=== PATIENT | female | born 1975 | race Caucasian/White ===

== ENCOUNTER 2021-04-29 17:45 | Inpatient (IN) | payer BC, SELFPAY ==
[2021-04-29] VITALS (7 sets, daily range): BP systolic 116–127; BP diastolic 67–80; PULSE 82–90; RESP 22–36; TEMP 36.8–36.9; O2SAT 91–97; BMI 34.2
--- NOTE | 2021-04-29 18:10 | ECG_ITS ---
[facility] Test Date: 2021-04-29 Pat Name: Lakisha Esqueda Department: Room: Gender: Female [employer]: : 1975 Requested By: Cinthya Ramirez Order Number: [id number] Miguelito MD: Nitesh Horan M.D. Measurements Intervals Arlee Rate: 84 P: MT: QRS: 3 QRSD: 76 T: 13 QT: 349 QTc: 414 Interpretive Statements SINUS RHYTHM LOW QRS VOLTAGE IN PRECORDIAL LEADS [QRS DEFLECTION < 1.0 mV IN CHEST LEADS] MINIMAL VOLTAGE CRITERIA FOR LVH, CONSIDER NORMAL VARIANT [MEETS CRITERIA IN ONE OF: R(aVL), S(V1), R(V5), R(V5/V6)+S(V1)] No previous ECG available for comparison Electronically Signed On 04-30-2021 12:17:41 CDT by Nitesh Horan M.D. [id number]
--- NOTE | 2021-04-29 18:10 | XRR_ITS ---
PROCEDURE INFORMATION: Exam: XR Chest Exam date and time: 04/29/2021 6:10 PM Age: 45 years old Clinical indication: Dyspnea; Additional info: SOB TECHNIQUE: Imaging protocol: XR of the chest. Views: 1 view. Total images: 1 COMPARISON: CT abdomen pelvis w con* [id number] 06/05/2018 9:59 AM FINDINGS: Lungs: Bilateral diffuse patches of ground-glass interstitial lung disease. No visible consolidated alveolar airspace disease. In the current environment consideration might be given to Covid-19 pneumonitis. Pleural spaces: Unremarkable. No pleural effusion. No pneumothorax. Heart/Mediastinum: Cardiac structures in configuration within normal limits. Bones/joints: Unremarkable. XR/XR chest 1V portable [id number] IMPRESSION: 1. Bilateral interstitial pneumonitis. 2. Consideration might be given to Covid-19 pneumonitis.
--- NOTE | 2021-04-29 18:12 | W.ED.COVID ---
HPI - COVID General: Chief Complaint: COVID symptoms Stated Complaint: COVID +; RESP DISTRESS Time Seen by Provider: 04/29/21 17:46 Triage information: Has fever, cough or shortness of breath. Exposure to COVID + person last 14 days History of Present Illness: HPI Narrative: 45-year-old female who was diagnosed with Covid on the states she been having symptoms since she been on home oxygen but states she got much worse today. EMS states that on her concentrator 5 L she was in the low 80s and they placed her on a nonrebreather. Patient is diaphoretic and tachypneic here. She states that her cough is worsened and she gets extremely dyspneic even at rest. Denies any pain. Denies any vomiting. COVID 19 common symptoms: positive fever(s), chills, productive cough, dyspnea and body aches; negative headache(s), throat pain, nausea, vomiting or diarrhea COVID 19 other sytmptoms: negative chest pain COVID Results: No Data to Display Review of Systems Const: Reports: fever(s), chills and body aches Eyes: Denies: blurry vision or eye discomfort ENMT: Denies: throat pain or dental pain Card: Denies: chest pain Resp: Reports: dyspnea and productive cough GI: Denies: abdominal pain, nausea, vomiting or diarrhea : Denies: dysuria Musc: Denies: neck pain or back pain Skin/Breast: Denies: rash Neuro: Denies: headache(s) Psych: Denies: depression Reilly/Lymph: Denies: easy bruising All/Imm: Denies: urticaria Physical Exam Const: COMMON NORMALS: patient oriented x3 GENERAL APPEARANCE: in distress and ill appearing HENMT: COMMON NORMALS: normocephalic and atraumatic HEAD & SCALP: normocephalic and atraumatic Eye: COMMON NORMALS: Equal, round and reactive pupils present and EOMs intact bilaterally PUPIL: Yes Equal, round and reactive pupils present Neck/C-Spine: COMMON NORMALS: full ROM and supple Chest: COMMONS NORMALS: normal inspection of the chest and normal palpation of entire chest wall Resp: COMMON NORMALS: normal respiratory effort, No retractions and No use of accessory muscles EFFORT & INSPECTION: Yes tachypneic AUSCULTATION: rales Cardio: COMMON NORMALS: regular rate, regular rhythm and No murmurs present (Cardio) RATE: regular rate RHYTHM: regular rhythm GI: COMMON NORMALS: Normal to inspection, nondistended, normoactive bowel sounds present, Soft to palpation, non-tender and no masses PALPATION: Yes Soft to palpation Extremity: COMMON NORMALS: normal to inspection and full ROM Neuro: COMMON NORMALS: patient oriented x3, moves all extremities and no focal motor deficits Psych: COMMON NORMALS: mental status grossly normal, Normal thought process present and cooperative THOUGHT PROCESS: Normal thought process present Skin: COMMON NORMALS: no rashes or lesions noted and no wounds GENERAL SKIN EXAM: no rashes or lesions noted Course Vital Signs: Vital signs: Vital Signs Temperature 98.2 F 04/29/21 18:03 Pulse Rate 84 04/29/21 18:46 Respiratory Rate 30 H 04/29/21 18:46 Blood Pressure 127/67 04/29/21 18:03 Pulse Oximetry 93 04/29/21 18:46 MDM - COVID MDM Narrative: Medical decision making narrative: Patient presents here with Covid pneumonia requiring increasing oxygen. I spoke to the hospitalist and will admit at this time. Patient has been stable in the ER on a nonrebreather. Lab Data: Labs: Lab Results 04/29/21 04/29/21 04/29/21 Range/Units 18:27 18:27 18:27 WBC 11.7 H (4.0-10.0) 10^3/ uL RBC 4.61 (4.1-5.3) 10^6/u L Hgb 13.5 (11.5-15.3) g/dL Hct 40.6 (37.0-47.0) % MCV 88.1 (81-99) fL MCH 29.3 (28.0-34.0) pg MCHC 33.3 (30.0-36.0) g/dL RDW 13.0 (12.1-15.1) % Plt Count 377 (130-400) 10^3/c mm MPV 9.7 (7.4-10.4) fL Neut % (Auto) 87.4 % Lymph % (Auto) 7.3 % [place] % (Auto) 4.3 % Eos % (Auto) 0.0 % Baso % (Auto) 0.1 % Neut # (Auto) 10.26 H (1.8-7.7) 10^3/u L Lymph # (Auto) 0.9 (0.8-4.8) 10^3/u L [place] # (Auto) 0.5 (0.2-0.9) 10^3/u L Eos # (Auto) 0.0 (0.0-0.8) 10^3/u L Baso # (Auto) 0.0 (0.0-0.1) 10^3/u L Nucleated RBC % (a uto) 0 % Nucleated RBCs # 0.0 /100WBC D-Dimer 2.43 H (0-0.59) ug/mIFE U Specimen Type Sample Site ABG pH (7.35-7.45) ABG pCO2 (35-45) mmHg ABG pO2 (80.0-100.0) mmH g ABG HCO3 (22-26) mmol/L ABG Base Excess (-2.0-2.0) mmol/ L Akhil Test Hematocrit (37-47) % O2 Delivery Device O2 Liters/Min % Supervisor Rod Placing ID Sodium 136 (136-145) mmol/L Potassium 4.5 (3.5-5.1) mmol/L Chloride 97 L (98-107) mmol/L Carbon Dioxide 27 (22-29) mmol/L Anion Gap 16.5 (5-19) BUN 12 (6-20) mg/dL Creatinine 0.7 (0.5-0.9) mg/dL GFR Calculation 91.3 (90-130) mL/min Glucose 111 (65-115) mg/dL Calculated Osmolal ity 282 L (285-295) mOsm/k g Lactic Acid (0.5-2.2) mmol/L Calcium 8.2 L (8.5-10.5) mg/dL Ferritin 2622 H (15-150) ng/mL Total Bilirubin 0.5 (0.15-1.2) mg/dL AST 169 H (0-32) U/L ALT 177 H (0-33) U/L Alkaline Phosphata se 102 (35-105) IU/L C-Reactive Protein 37.4 H (0.0-4.9) mg/L NT-Pro-B Natriuret Pep 190 H (0-125) pg/mL Total Protein 6.1 L (6.6-8.7) g/dL Albumin 3.4 L (3.5-5.2) g/dL Globulin 2.7 (1.3-4.6) g/dL Procalcitonin 0.11 (0-0.5) ng/mL 04/29/21 04/29/21 Range/Units 18:27 19:24 WBC (4.0-10.0) 10^3/ uL RBC (4.1-5.3) 10^6/u L Hgb (11.5-15.3) g/dL Hct (37.0-47.0) % MCV (81-99) fL MCH (28.0-34.0) pg MCHC (30.0-36.0) g/dL RDW (12.1-15.1) % Plt Count (130-400) 10^3/c mm MPV (7.4-10.4) fL Neut % (Auto) % Lymph % (Auto) % [place] % (Auto) % Eos % (Auto) % Baso % (Auto) % Neut # (Auto) (1.8-7.7) 10^3/u L Lymph # (Auto) (0.8-4.8) 10^3/u L [place] # (Auto) (0.2-0.9) 10^3/u L Eos # (Auto) (0.0-0.8) 10^3/u L Baso # (Auto) (0.0-0.1) 10^3/u L Nucleated RBC % (a uto) % Nucleated RBCs # /100WBC D-Dimer (0-0.59) ug/mIFE U Specimen Type Arterial Sample Site Radial, left ABG pH 7.47 H (7.35-7.45) ABG pCO2 38.7 (35-45) mmHg ABG pO2 52.7 L (80.0-100.0) mmH g ABG HCO3 28.2 H (22-26) mmol/L ABG Base Excess 4.4 H (-2.0-2.0) mmol/ L Akhil Test Pos Hematocrit 44.2 (37-47) % O2 Delivery Device Nrb O2 Liters/Min 15.0 % Supervisor Rod Placing ID Cak Sodium (136-145) mmol/L Potassium (3.5-5.1) mmol/L Chloride (98-107) mmol/L Carbon Dioxide (22-29) mmol/L Anion Gap (5-19) BUN (6-20) mg/dL Creatinine (0.5-0.9) mg/dL GFR Calculation (90-130) mL/min Glucose (65-115) mg/dL Calculated Osmolal ity (285-295) mOsm/k g Lactic Acid 1.9 (0.5-2.2) mmol/L Calcium (8.5-10.5) mg/dL Ferritin (15-150) ng/mL Total Bilirubin (0.15-1.2) mg/dL AST (0-32) U/L ALT (0-33) U/L Alkaline Phosphata se (35-105) IU/L C-Reactive Protein (0.0-4.9) mg/L NT-Pro-B Natriuret Pep (0-125) pg/mL Total Protein (6.6-8.7) g/dL Albumin (3.5-5.2) g/dL Globulin (1.3-4.6) g/dL Procalcitonin (0-0.5) ng/mL Imaging Data: CXR: Attestation: I personally reviewed and interpreted this imaging study as follows: Radiologist's impression: [address] [address] XRay Report Signed Patient: Lakisha Esqueda Unit #: [id number] : 1975 Age/Sex: 45 / F ADM Date: 04/29/21 Loc: ER Room/Bed: Attending Dr: Ordering Provider/Ordering MD: Cinthya Ramirez MD Date of Service: 04/29/21 Procedure(s): XR chest 1V portable [id number] Accession Number(s): [id number] Report Number: [id number] PROCEDURE INFORMATION: Exam: XR Chest Exam date and time: 04/29/2021 6:10 PM Age: 45 years old Clinical indication: Dyspnea; Additional info: SOB TECHNIQUE: Imaging protocol: XR of the chest. Views: 1 view. Total images: 1 COMPARISON: CT abdomen pelvis w con* [id number] 06/05/2018 9:59 AM FINDINGS: Lungs: Bilateral diffuse patches of ground-glass interstitial lung disease. No visible consolidated alveolar airspace disease. In the current environment consideration might be given to Covid-19 pneumonitis. Pleural spaces: Unremarkable. No pleural effusion. No pneumothorax. Heart/Mediastinum: Cardiac structures in configuration within normal limits. Bones/joints: Unremarkable. XR/XR chest 1V portable [id number] IMPRESSION: 1. Bilateral interstitial pneumonitis. 2. Consideration might be given to Covid-19 pneumonitis. Dictated By: Lee Easton Signed By: Lee Easton Signed Date/Time: 04/29/211926 DD/ 24 EKG Data: EKG 1: Attestation: I personally reviewed and interpreted this EKG as follows: EKG interpretation date: 04/29/21 EKG interpretation time: 18:45 Interpretation: nsr hr [address] or t wave abnormalitiesqrs 76 qtc 390 COVID Results: No Data to Display Discharge Plan Discharge Patient Disposition: Admitted As Inpatient Clinical Impression: Pneumonia due to 2019 novel coronavirus Condition: Stable Coding Level of Care Code ED Handle Maker for Chg Fwd Exam Comprehensive
[2021-04-29] MEDS: albuterol 8 gm MDI 2 PUFF INHALATION (18:31)
[2021-04-29 18:38] LABS: Basophils % 0.1 %; Hematocrit 40.6 % (37.0-47.0); Hemoglobin 13.5 g/dL (11.5-15.3); Lymphocytes # 0.9 10^3/uL (0.8-4.8); Lymphocytes % 7.3 %; Mean Corpuscular HGB Conc 33.3 g/dL (30.0-36.0); Mean Corpuscular Hemoglobin 29.3 pg (28.0-34.0); Mean Corpuscular Volume 88.1 fL (81-99); Mean Platelet Volume 9.7 fL (7.4-10.4); Monocytes # 0.5 10^3/uL (0.2-0.9); Monocytes % 4.3 %; Neutrophils # 10.26 10^3/uL (1.8-7.7); Neutrophils % 87.4 %; Nucleated Red Blood Cells % 0 %; Platelet Count 377 10^3/cmm (130-400); Red Blood Count 4.61 10^6/uL (4.1-5.3); White Blood Count 11.7 10^3/uL (4.0-10.0)
[2021-04-29 18:53] LABS: D Dimer 2.43 ug/mIFEU (0-0.59)
[2021-04-29 19:00] LABS: Lactic Sepsis W/Reflex 1.9 mmol/L (0.5-2.2)
[2021-04-29 19:10] LABS: NT Pro B Type Natriuretic Pept 190 pg/mL (0-125); Procalcitonin 0.11 ng/mL (0-0.5)
--- NOTE | 2021-04-29 19:13 | CTR_ITS ---
PROCEDURE INFORMATION: Exam: CTA Chest With Contrast Exam date and time: 04/29/2021 7:13 PM Age: 45 years old Clinical indication: Cough and shortness of breath; Patient HX: Covid+ SOB w cough TECHNIQUE: Imaging protocol: Computed tomographic angiography of the chest with contrast. 3D rendering (Not supervised by radiologist): MIP and/or 3D reconstructed images were created by the technologist. Total images: 846 Radiation optimization: All CT scans at this facility use at least one of these dose optimization techniques: automated exposure control; mA and/or kV adjustment per patient size (includes targeted exams where dose is matched to clinical indication); or iterative reconstruction. Contrast material: OMNI 350; Contrast volume: 77 ml; Contrast route: INTRAVENOUS (IV); COMPARISON: CR (CHEST, ) 04/29/2021 6:46 PM RADIATION DOSE METRICS: Total DLP (mGy-cm): 584.78 FINDINGS: Pulmonary arteries: No visible evidence of pulmonary embolism/pulmonary arterial thrombus. Aorta: The thoracic aorta is nonaneurysmal. No visible intimal flap or dissection. Thyroid: Potential 13 mm nodule at the thyroid isthmus. Not well imaged due to quantum mottle artifact. Lungs: Bilateral, predominantly peripheral, patches of ground-glass interstitial lung disease opacification with patches of crazy paving and early consolidated alveolar airspace disease consistent with active pneumonitis/pneumonia. Overall constellation of findings would be consistent with Covid-19 pneumonitis/pneumonia. Pleural spaces: Unremarkable. No pneumothorax. No pleural effusion. Heart: No cardiomegaly. No visible pericardial effusion. No visible coronary artery disease. Lymph nodes: Few marginally prominent mediastinal and hilar lymph nodes most likely reactive. Bones/joints: No visible active or acute osseous pathology. Soft tissues: Unremarkable. CT/CT angio chest PE protcl [id number] IMPRESSION: 1. No visible evidence of pulmonary embolism/pulmonary arterial thrombus. 2. Bilateral, predominantly peripheral, patches of ground-glass interstitial lung disease opacification with patches of crazy paving and early consolidated alveolar airspace disease consistent with active pneumonitis/pneumonia. Overall constellation of findings would be consistent with Covid-19 pneumonitis/pneumonia. 3. Potential 13 mm nodule at the thyroid isthmus. Not well imaged due to quantum mottle artifact. No follow-up is recommended. COMMENTS: Consistent with the [employer]'s Incidental Findings Committee white paper (J Am Rosamaria Radiol 2015): In patients aged 35 years and older with an incidental thyroid nodule equal to or greater than 1.[address], MRI or extrathyroidal US, further evaluation with dedicated thyroid US is recommended for patients with normal life expectancy and without comorbidities. For smaller nodules without suspicious features, no further evaluation or follow up is recommended. Radiation Dose CTDIVOL = (mGy): DLP = 584.78 (mGy-cm)
[2021-04-29 19:21] LABS: Alanine Aminotransferase 177 U/L (0-33); Albumin Level 3.4 g/dL (3.5-5.2); Alkaline Phosphatase 102 IU/L (35-105); Anion Gap 16.5 (5-19); Aspartate Amino Transferase 169 U/L (0-32); Blood Urea Nitrogen 12 mg/dL (6-20); C Reactive Protein 37.4 mg/L (0.0-4.9); Calcium 8.2 mg/dL (8.5-10.5); Carbon Dioxide 27 mmol/L (22-29); Chloride 97 mmol/L (98-107); Globulin 2.7 g/dL (1.3-4.6); Glomerular Filtration Rate 91.3 mL/min (90-130); Glucose 111 mg/dL (65-115); Osmolality Calculated 282 mOsm/kg (285-295); Potassium 4.5 mmol/L (3.5-5.1); Sodium 136 mmol/L (136-145); Total Bilirubin 0.5 mg/dL (0.15-1.2); Total Protein 6.1 g/dL (6.6-8.7)
[2021-04-29] MEDS: dexamethasone 4 mg/mL INJ 6 MG IVP (19:32)
[2021-04-29 19:35] LABS: ABG PCO2 38.7 mmHg (35-45); ABG PH Result 7.47 (7.35-7.45); Arterial Blood Gas Hematocrit 44.2 % (37-47); Base Excess ABG 4.4 mmol/L (-2.0-2.0); Blood Gas Allen Test Pos; Blood Gas Operator Identificat CAK; Blood Gas Sample Site Radial, left; Blood Gas Sample Type Arterial; HCO3 ABG 28.2 mmol/L (22-26); Oxygen Device NRB; PO2 ABG 52.7 mmHg (80.0-100.0)
[2021-04-29 19:36] LABS: Ferritin 2622 ng/mL (15-150)
[2021-04-29] MEDS: iohexol 350 mg/mL 100 mL Btl IV (21:18)
--- NOTE | 2021-04-29 22:31 | P.HP_ITS ---
Providers/Chief Complaint Admitting Physician: Kelly Davidson Chief Complaint: COVID +; RESP DISTRESS History of Present Illness Lakisha Esqueda is a 45 year old female With no significant past medical history who presented to the hospital with respiratory distress. Patient stated symptom had been ongoing for a little less than 1 week. This was associated with fever, chills, cough and overall generalized weakness.Patient is unvaccinated. Upon arrival to emergency room patients initial laboratory workup showed a WBC of 11.7, hemoglobin of 13.5, hematocrit of 40.6 and a platelet count of 377.D-dimer 2.43.Arterial blood gases showed a pH of 7.47, pCO2 38.7 and bicarb of 28.2.Sodium 136, potassium 4.5 chloride 97 bicarb 27.BUN 12 and creatinine 0.7. AST was elevated at 169, ALT of 177, alkaline phosphatase of 102. ProBNP of 190. CRP of 37.4. Procalcitonin 0.11.Chest CTA did not show any visible evidence of pulmonary embolism however was noted have bilateral predominant peripheral patches of ground-glass interstitial lung disease opacification consistent with COVID-19 pneumonia. Also noted to have a potentially 13 mm nodu le of the thyroid isthmus.In emergency room patient was given Decadron 6 mg IV x1 and admitted to the hospital. At the time of my evaluation patient was a high-flow nasal cannula requiring 60 L at 100% FiO2. Review of Systems General: Reports: 10 or more systems reviewed and unremarkable except in HPI and below Medications/Allergies Home Medications Medication Instructions Recorded Confirmed Last Taken Type albuterol sulfate 2 puff INHALATION QID PRN 04/29/21 04/29/21 04/29/21 17:00 History azithromycin 250 mg PO BEDTIME 04/29/21 04/29/21 04/28/21 21:00 History prednisone 40 mg PO DAILY 04/29/21 04/29/21 04/29/21 08:00 History Allergies Allergy/AdvReac Type Severity Reaction Status Date / Time No Known Allergies Allergy Verified 04/29/21 23:31 PFSH Acute PFSH: Medical History (Updated 04/30/21 @ 05:17 by Kelly Davidson MD) Morbid obesity No pertinent family history Surgical History (Updated 04/30/21 @ 05:16 by Kelly Davidson MD) No pertinent past surgical history Social History (Updated 04/30/21 @ 05:16 by Kelly Davidson MD) Smoking and tobacco status: never smoked Alcohol intake: never Substance/Drug Use: never Vitals/I&O/Wt Last Vital Signs Temp 97.3 F L 04/30/21 01:08 Pulse 79 04/30/21 01:08 Resp 22 H 04/30/21 01:08 BP 114/80 04/30/21 01:08 Pulse Ox 92 04/30/21 01:08 Weight last 48 hrs Weight 93.44 kg Physical Exam Narrative: EXAM NARRATIVE: General-alert awake and oriented on high-flow nasal cannula HEENT- grossly unremarkable CVS- normal sinus rhythm Chest-nonlabored respiration Abdomen -nondistended Extremities -no edema Data : 04/29/21 18:27 04/29/21 18:27 A&P Assessment and plan (1) Acute hypoxemic respiratory failure due to COVID-19: Increased respiratory rate, p02 52.7, on HFNC Continue decadron 6 mg IV q24hr Procalcitonin neg - Monitor off abx Ferritin 2622, CRP 37.4, Repeat in am Hold on remdesivir due elevated LFTs CTA - no PE Wean off hfnc as tolerated My require home o2 at discharge. Status: Acute Attestations Medical Necessity Statement*: Will require > 2 midnight stay in hospital for eval and treatment of covid19 pneumonia Time Spent in Patient Care: Greater than 35 minutes (>than 50% of time spent in counselling and/or direct pt care on unit) . Coding Level of Care Code Acute Blow Mold Technician for [facility]ie [facility] Diagnoses Acute hypoxemic respiratory failure due to COVID-19 U07.1; J96.01
[2021-04-30] VITALS (12 sets, daily range): BP systolic 106–124; BP diastolic 69–80; PULSE 70–86; RESP 16–28; TEMP 36.3–37.1; O2SAT 88–96
[2021-04-30] MEDS: heparin 5,000 unit/mL INJ 1 mL 5000 UNIT SUBCUT ×3 (06:39→21:37)
[2021-04-30] MEDS: pantoprazole 40 mg SDV IVP (06:39)
[2021-04-30 08:48] LABS: NT Pro B Type Natriuretic Pept 168 pg/mL (0-125)
[2021-04-30] MEDS: cholecalciferol (vitamin D3) 1,000 unit Tablet 1000 UNIT PO (11:17)
[2021-04-30] MEDS: remdesivir 200 MG in sodium chloride 0.9% (100 ml) 100 ML 100 MG IV (11:17)
[2021-04-30] MEDS: ascorbic acid 500 mg Tablet PO ×2 (11:17→18:00)
[2021-04-30] MEDS: zinc gluconate 50 mg Tablet PO (11:17)
--- NOTE | 2021-04-30 11:17 | PM.PN ---
Subjective Subjective: Interval history: Patient was seen this morning, she tells me that she feels a bit short of breath, but she does feel a whole lot better, currently no cough, no fevers, no nausea, no vomiting, no chest pain, denies smoking, no cardiovascular history, no history of lung disease Vitals/I&O/Wt Last Vital Signs Temp 98.0 F 04/30/21 07:24 Pulse 71 04/30/21 08:13 Resp 24 H 04/30/21 08:13 BP 118/79 04/30/21 07:24 Pulse Ox 95 04/30/21 08:13 04/29/21 04/30/21 04/30/21 22:59 06:59 14:59 Intake Total 180 / 180 Output Total 300 / 300 Balance -300 / -300 180 / 180 Weight last 48 hrs Weight 93.44 kg Physical Exam Const: COMMON NORMALS: no acute distress and patient oriented x3 Resp: COMMON NORMALS: normal respiratory effort, No retractions and No use of accessory muscles AUSCULTATION: diminished lung sounds diffuse Cardio: COMMON NORMALS: regular rate, regular rhythm, S1 normal heart sound present and S2 normal heart sound present RATE: regular rate RHYTHM: regular rhythm HEART SOUNDS: S1 normal heart sound present and S2 normal heart sound present GI: COMMON NORMALS: Normal to inspection, nondistended, normoactive bowel sounds present, Soft to palpation and non-tender PALPATION: Yes Soft to palpation Extremity: COMMON NORMALS: no pedal edema Neuro: COMMON NORMALS: patient oriented x3 Data : 04/29/21 18:27 04/29/21 18:27 A&P Assessment and plan (1) Acute hypoxemic respiratory failure due to COVID-19: Currently on heated high flow 55 L 75% FiO2 With transaminitis Pro-Irving 0.11, CRP 37.4, ferritin 2622 CT angiogram no radiographic evidence of pulmonary emboli Continue decadron 6 mg IV q24hr Start remdesivir day 1 of 5 Start Actemra day 1 Albuterol, budesonide Start broad-spectrum antibiotic therapy Rocephin and azithromycin for prophylaxis for secondary bacterial pneumonia Vitamin C, zinc, vitamin D Incentive spirometer, flutter valve Pulmonary toilet, prone positioning Monitor respiratory status closely Full code Lovenox for DVT prophylaxis Status: Acute (2) Pneumonia due to COVID-19 virus: Status: Acute (3) Transaminitis: Status: Acute Attestations Medical Necessity Statement*: Patient requires hospitalization for acute respiratory failure secondary to COVID-19, inpatient, greater than 2 midnights Coding Level of Care Code Acute Skating Rink Ice Maker for [facility] Diagnoses Acute hypoxemic respiratory failure due to COVID-19 U07.1; J96.01 Pneumonia due to COVID-19 virus U07.1; J12.82 Transaminitis R74.01
[2021-04-30] MEDS: azithromycin 500 MG in sodium chloride 0.9% 250 ML 250 MG IV (12:10)
[2021-04-30] MEDS: cefTRIAXone 1,000 MG in sodium chloride 0.9% (plus) 50 ML 100 MG IV (13:31)
--- NOTE | 2021-04-30 16:08 | PC.PT ---
Patient unable to participate meaningfully with PT evaluation today, just seen by occupational therapist, patient unable to maintain low 80s oxygen saturation with bed level activities; will follow
[2021-04-30] MEDS: dexamethasone 10 mg/mL INJ 6 MG IVP (18:00)
[2021-04-30] MEDS: budesonide 0.5 mg/2 mL Neb INHALATION (21:14)
[2021-05-01] VITALS (16 sets, daily range): BP systolic 112–133; BP diastolic 75–85; PULSE 68–88; RESP 18–30; TEMP 36.3–36.7; O2SAT 87–98
[2021-05-01 04:35] LABS: ABG PCO2 37.7 mmHg (35-45); ABG PH Result 7.46 (7.35-7.45); Arterial Blood Gas Hematocrit 43.4 % (37-47); Blood Gas Allen Test Pos; Blood Gas Sample Site Radial, right; Blood Gas Sample Type Arterial; HCO3 ABG 26.8 mmol/L (22-26); Oxygen Device HAG; PO2 ABG 52.7 mmHg (80.0-100.0)
--- NOTE | 2021-05-01 04:41 | PC.RESP ---
RT Shift Note Frequent safety and respiratory rounds continue. Orders completed as indicated. Patient monitored pre and post treatments throughout shift. Patient did tolerate treatments appropriately. Condition did not change. Patient educated on respiratory treatment and medications. Patient demonstrated. Will continue to monitor patient progress.
[2021-05-01 05:07] LABS: Basophils % 0.2 %; Hematocrit 42.4 % (37.0-47.0); Hemoglobin 13.6 g/dL (11.5-15.3); Lymphocytes # 1.4 10^3/uL (0.8-4.8); Lymphocytes % 14.6 %; Mean Corpuscular HGB Conc 32.1 g/dL (30.0-36.0); Mean Corpuscular Hemoglobin 28.6 pg (28.0-34.0); Mean Corpuscular Volume 89.1 fL (81-99); Mean Platelet Volume 9.9 fL (7.4-10.4); Monocytes # 0.4 10^3/uL (0.2-0.9); Neutrophils # 7.71 10^3/uL (1.8-7.7); Neutrophils % 80.1 %; Nucleated Red Blood Cells % 0 %; Platelet Count 483 10^3/cmm (130-400); Red Blood Count 4.76 10^6/uL (4.1-5.3); Red Cell Distribution Width 12.8 % (12.1-15.1); White Blood Count 9.6 10^3/uL (4.0-10.0)
[2021-05-01 05:12] LABS: INR 0.98 (0.8-1.2)
[2021-05-01 05:23] LABS: Lactate (Lactic Acid level) 1.7 mmol/L (0.5-2.2)
[2021-05-01 05:39] LABS: NT Pro B Type Natriuretic Pept 192 pg/mL (0-125); Procalcitonin 0.07 ng/mL (0-0.5)
[2021-05-01] MEDS: heparin 5,000 unit/mL INJ 1 mL 5000 UNIT SUBCUT ×3 (05:41→21:11)
[2021-05-01 05:42] LABS: Alanine Aminotransferase 165 U/L (0-33); Albumin Level 3.4 g/dL (3.5-5.2); Alkaline Phosphatase 107 IU/L (35-105); Anion Gap 17.4 (5-19); Aspartate Amino Transferase 102 U/L (0-32); Blood Urea Nitrogen 14 mg/dL (6-20); Calcium 8.7 mg/dL (8.5-10.5); Carbon Dioxide 26 mmol/L (22-29); Chloride 100 mmol/L (98-107); Globulin 3.2 g/dL (1.3-4.6); Glomerular Filtration Rate 109.1 mL/min (90-130); Glucose 125 mg/dL (65-115); Magnesium 2.7 mg/dL (1.7-2.3); Osmolality Calculated 290 mOsm/kg (285-295); Phosphorus 3.7 mg/dL (2.5-4.5); Potassium 4.4 mmol/L (3.5-5.1); Sodium 139 mmol/L (136-145); Total Bilirubin 0.4 mg/dL (0.15-1.2); Total Protein 6.6 g/dL (6.6-8.7)
[2021-05-01] MEDS: pantoprazole 40 mg SDV IVP (05:42)
[2021-05-01] MEDS: remdesivir 100 MG in sodium chloride 0.9% (100 ml) 100 ML IV (05:42)
[2021-05-01 05:49] LABS: Creatine Phosphokinase 78 U/L (26-192)
[2021-05-01 06:03] LABS: Ferritin 2606 ng/mL (15-150)
--- NOTE | 2021-05-01 07:00 | XRR_ITS ---
PROCEDURE INFORMATION: Exam: XR Chest Exam date and time: 05/01/2021 7:00 AM Age: 45 years old Clinical indication: Shortness of breath; Patient HX: Covid; Additional info: SOB TECHNIQUE: Imaging protocol: XR of the chest. Views: 1 view. COMPARISON: CR (CHEST, ) 04/29/2021 6:46 PM FINDINGS: Lungs: Multifocal bilateral ground-glass opacities are noted, increased. Findings may be seen with viral pneumonia. Pleural spaces: Unremarkable. No pleural effusion. No pneumothorax. Heart/Mediastinum: No cardiomegaly. Bones/joints: No acute fracture. XR/XR chest 1V portable [id number] IMPRESSION: Multifocal bilateral ground-glass opacities are noted, increased. Findings may be seen with viral pneumonia.
[2021-05-01] MEDS: FUROsemide 10 mg/mL SDV 4mL 40 MG IVP (08:45)
[2021-05-01] MEDS: cholecalciferol (vitamin D3) 1,000 unit Tablet 1000 UNIT PO (08:45)
[2021-05-01] MEDS: zinc gluconate 50 mg Tablet PO (08:45)
[2021-05-01] MEDS: azithromycin 500 MG in sodium chloride 0.9% 250 ML 250 MG IV (08:46)
[2021-05-01] MEDS: ascorbic acid 500 mg Tablet PO ×2 (08:56→18:16)
[2021-05-01] MEDS: budesonide 0.5 mg/2 mL Neb INHALATION ×2 (09:20→22:36)
--- NOTE | 2021-05-01 09:44 | PC.CHAP ---
Pastoral Care Encounter/Spiritual Assessment Type of Contact [] Declined health science instructor visit [] Patient/Family/Request visit [] Outpatient visit [] Follow-up visit [] Physician referral [] Code/Alert [x] Routine visit [] Staff referral [] Actively dying [] Patient sleeping [] Family support [] [] Out of room [] Palliative care [] [] Receiving care in room [] Pre-surgical visit [] Trauma [] Long length of stay [] ICU visit [x] Other:covid Relational/Emotional Strength [] Patient feels connected with others/family/visitors/staff [] Distress [] Loneliness/isolation [] Abandonment Spirituality of Patient [] Person of Maria R [] Attends Baptism of their Maria R [] Believes in Prayer [] Reads Bible or Hoahaoism materials [] There are Spiritual issues to be addressed Successfactors Consultant Interventions [x] Prayer [] Active listening [] Non-anxious presence [] Spiritual/emotional support [] Crisis/trauma care [] Spiritual counseling [] Bereavement support [] Provided bereavement packet [] Provided Bible/devotional materials [] Provided toy/stuffed animal, coloring book to patient or family member [] Provided Communion [] Anointing/[place] [] Salvation [x] Completed spiritual assessment [] Other: Impact on Illness or Injury [] Angry [] Fearful [] Anxious [] Often cries [] Exhaustion [] Unable to work [] Unable to attend jew [] Unable to walk/stand [] Unable to read [] Unable to drive [] Unable to eat/drink [] Unable to sleep [] Unable to be with family [] Patient intubated [] Other: Summary Time spent with patient
--- NOTE | 2021-05-01 13:22 | PM.PN ---
Subjective Subjective: Interval history: This morning patient was seen, she tells me that she is doing better, shortness of breath has improved, no fevers, no chills, no nausea, no vomiting, Vitals/I&O/Wt Last Vital Signs Temp 97.5 F L 05/01/21 11:58 Pulse 68 05/01/21 11:58 Resp 18 05/01/21 11:58 BP 122/81 05/01/21 11:58 Pulse Ox 98 05/01/21 11:58 04/30/21 05/01/21 05/01/21 22:59 06:59 14:59 Intake Total 480 / 1197.5 350 / 350 Balance 480 / 1197.5 350 / 350 Weight last 48 hrs Weight 93.44 kg Physical Exam Const: COMMON NORMALS: no acute distress and patient oriented x3 Resp: COMMON NORMALS: normal respiratory effort, No retractions, No use of accessory muscles and clear to auscultation bilaterally AUSCULTATION: clear to auscultation bilaterally Cardio: COMMON NORMALS: regular rate, regular rhythm, S1 normal heart sound present and S2 normal heart sound present RATE: regular rate RHYTHM: regular rhythm HEART SOUNDS: S1 normal heart sound present and S2 normal heart sound present GI: COMMON NORMALS: Normal to inspection, nondistended, normoactive bowel sounds present, Soft to palpation and non-tender PALPATION: Yes Soft to palpation Extremity: COMMON NORMALS: no pedal edema Neuro: COMMON NORMALS: patient oriented x3 Psych: COMMON NORMALS: mental status grossly normal Data : 05/01/21 04:02 05/01/21 04:02 A&P Assessment and plan (1) Acute hypoxemic respiratory failure due to COVID-19: Currently on heated high flow 50 L 70% FiO2 With transaminitis Pro-Irving 0.07, CRP 29, ferritin 2606 CT angiogram no radiographic evidence of pulmonary emboli Continue decadron 6 mg IV q24hr Start remdesivir day 2 of 5 First dose Actemra 04/30/2021 Albuterol, budesonide Start broad-spectrum antibiotic therapy Rocephin and azithromycin for prophylaxis for secondary bacterial pneumonia Vitamin C, zinc, vitamin D Incentive spirometer, flutter valve Pulmonary toilet, prone positioning Monitor respiratory status closely Full code Lovenox for DVT prophylaxis Plan for today, continue antibiotics continue Decadron continue remdesivir, aggressive pulmonary toilet Status: Acute (2) Pneumonia due to COVID-19 virus: Status: Acute (3) Transaminitis: Status: Acute Attestations Medical Necessity Statement*: Patient requires hospitalization for acute respiratory failure secondary COVID-19 Coding Level of Care Code Acute Director Of Marketing Operations for [facility] Diagnoses Acute hypoxemic respiratory failure due to COVID-19 U07.1; J96.01 Pneumonia due to COVID-19 virus U07.1; J12.82 Transaminitis R74.01
[2021-05-01] MEDS: cefTRIAXone 1,000 MG in sodium chloride 0.9% (plus) 50 ML 100 MG IV (14:18)
--- NOTE | 2021-05-01 15:00 | PC.NURSE ---
, Wesley Esqueda updated on patient.
--- NOTE | 2021-05-01 17:41 | PC.RESP ---
RT Shift Note Frequent safety and respiratory rounds continue. Orders completed as indicated. Patient monitored pre and post treatments throughout shift. Patient tolerated treatments appropriately. Condition improved . Patient and/or employee relations representative educated on respiratory treatment and medications. Patient and/or employee relations representative verbalized understanding and asked appropriate questions. Will continue to monitor patient progress.
[2021-05-01] MEDS: dexamethasone 10 mg/mL INJ 6 MG IVP (18:16)
[2021-05-02] VITALS (16 sets, daily range): BP systolic 108–134; BP diastolic 63–85; PULSE 75–95; RESP 16–36; TEMP 36.6–36.8; O2SAT 89–97
[2021-05-02] MEDS: heparin 5,000 unit/mL INJ 1 mL 5000 UNIT SUBCUT ×3 (05:28→22:28)
[2021-05-02] MEDS: pantoprazole 40 mg SDV IVP (05:28)
[2021-05-02] MEDS: remdesivir 100 MG in sodium chloride 0.9% (100 ml) 100 ML IV (05:29)
[2021-05-02 07:14] LABS: Lactate (Lactic Acid level) 2.7 mmol/L (0.5-2.2)
[2021-05-02 07:16] LABS: Basophils % 0.3 %; Eosinophils # 0.2 10^3/uL (0.0-0.8); Eosinophils % 2.4 %; Hematocrit 44.4 % (37.0-47.0); Hemoglobin 14.3 g/dL (11.5-15.3); Lymphocytes # 1.1 10^3/uL (0.8-4.8); Mean Corpuscular HGB Conc 32.2 g/dL (30.0-36.0); Mean Corpuscular Hemoglobin 28.9 pg (28.0-34.0); Mean Corpuscular Volume 89.9 fL (81-99); Mean Platelet Volume 10.1 fL (7.4-10.4); Monocytes # 0.4 10^3/uL (0.2-0.9); Monocytes % 4.7 %; Neutrophils # 5.71 10^3/uL (1.8-7.7); Neutrophils % 76.1 %; Nucleated Red Blood Cells % 0 %; Platelet Count 525 10^3/cmm (130-400); Red Blood Count 4.94 10^6/uL (4.1-5.3); Red Cell Distribution Width 13.1 % (12.1-15.1); White Blood Count 7.5 10^3/uL (4.0-10.0)
[2021-05-02 07:30] LABS: INR 1.04 (0.8-1.2)
[2021-05-02 08:01] LABS: Alanine Aminotransferase 124 U/L (0-33); Albumin Level 3.3 g/dL (3.5-5.2); Alkaline Phosphatase 99 IU/L (35-105); Anion Gap 17.6 (5-19); Aspartate Amino Transferase 54 U/L (0-32); Blood Urea Nitrogen 19 mg/dL (6-20); C Reactive Protein 13.1 mg/L (0.0-4.9); Calcium 8.7 mg/dL (8.5-10.5); Carbon Dioxide 27 mmol/L (22-29); Chloride 100 mmol/L (98-107); Creatine Phosphokinase 52 U/L (26-192); Glomerular Filtration Rate 109.1 mL/min (90-130); Glucose 94 mg/dL (65-115); Magnesium 2.5 mg/dL (1.7-2.3); NT Pro B Type Natriuretic Pept 76 pg/mL (0-125); Osmolality Calculated 294 mOsm/kg (285-295); Phosphorus 3.4 mg/dL (2.5-4.5); Potassium 3.6 mmol/L (3.5-5.1); Sodium 141 mmol/L (136-145); Total Bilirubin 0.5 mg/dL (0.15-1.2); Total Protein 6.3 g/dL (6.6-8.7)
[2021-05-02 08:15] LABS: Ferritin 2014 ng/mL (15-150)
[2021-05-02] MEDS: zinc gluconate 50 mg Tablet PO (08:38)
[2021-05-02] MEDS: ascorbic acid 500 mg Tablet PO ×2 (08:38→17:16)
[2021-05-02] MEDS: cholecalciferol (vitamin D3) 1,000 unit Tablet 1000 UNIT PO (08:38)
[2021-05-02] MEDS: azithromycin 500 MG in sodium chloride 0.9% 250 ML 250 MG IV (08:39)
[2021-05-02] MEDS: budesonide 0.5 mg/2 mL Neb INHALATION ×2 (08:44→20:06)
[2021-05-02] MEDS: cefTRIAXone 1,000 MG in sodium chloride 0.9% (plus) 50 ML 100 MG IV (15:50)
[2021-05-02] MEDS: ALPRAZolam 0.5 mg Tablet PO ×2 (15:51→22:28)
--- NOTE | 2021-05-02 16:17 | P.PN_ITS ---
Subjective Subjective: Interval history: 45 year old female With no significant past medical history who presented to the hospital with respiratory distress. Patient stated symptom had been ongoing for a little less than 1 week. This was associated with fever, chills, cough and overall generalized weakness.Patient is unvaccinated. Upon arrival to emergency room patients initial laboratory w orkup showed a WBC of 11.7, hemoglobin of 13.5, hematocrit of 40.6 and a platelet count of 377.D-dimer 2.43.Arterial blood gases showed a pH of 7.47, pCO2 38.7 and bicarb of 28.2.Sodium 136, potassium 4.5 chloride 97 bicarb 27.BUN 12 and creatinine 0.7. AST was elevated at 169, ALT of 177, alkaline phosphatase of 102. ProBNP of 190. CRP of 37.4. Ferritin of 2606. Procalcitonin 0.11.Chest CTA did not show any visible evidence of pulmonary embolism however was noted have bilateral predominant peripheral patches of ground-glass interstitial lung disease opacification consistent with COVID-19 pneumonia. Also noted to have a potentially 13 mm nodule of the thyroid isthmus.In emergency room patient was given Decadron 6 mg IV x1 and admitted to the hospital. At the time of my evaluation patient was a high-flow nasal cannula requiring 60 L at 100% FiO2. Upon admission to the hospital patient was treated with Actemra on 04/30/2021. Also started on ceftriaxone and azithromycin for suspected superimposed bacterial infection. 05/01/2021 Continuing to require high-flow nasal cannula. 50 L at 100% FiO2. Transition to CPAP. Medications: Reviewed: Yes Vitals/I&O/Wt Last Vital Signs Temp 97.9 F 05/02/21 15:59 Pulse 82 05/02/21 15:59 Resp 22 H 05/02/21 15:59 BP 110/63 05/02/21 15:59 Pulse Ox 89 L 05/02/21 15:59 05/02/21 05/02/21 05/02/21 06:59 14:59 22:59 Intake Total 100 / 1100 730 / 730 Output Total 450 / 450 Balance -350 / 650 730 / 730 Physical Exam Narrative: EXAM NARRATIVE: General-alert awake and oriented on high-flow nasal cannula HEENT- grossly unremarkable CVS- normal sinus rhythm Chest-nonlabored respiration Abdomen -nondistended Extremities -no edema Data : 05/02/21 05:55 05/02/21 05:55 A&P Assessment and plan (1) Acute hypoxemic respiratory failure due to COVID-19: Currently on heated high-flow 50 L 100% FiO2 Started on Remdesivir D3 of 5 today Continue Decadron 6 mg daily for total of [address] angiogram no radiographic evidence of pulmonary emboli First dose Actemra 04/30/2021 Albuterol, budesonide Rocephin and azithromycin for prophylaxis for secondary bacterial pneumonia Plan for total of 5 days of antibiotics Vitamin C, zinc, vitamin D Incentive spirometer, flutter valve Pulmonary toilet, prone positioning Plan for today, continue antibiotics continue Decadron continue remdesivir, aggressive pulmonary toilet Status: Acute (2) Pneumonia due to COVID-19 virus: Status: Acute (3) Transaminitis: Repeat CMP in a.m AST- 169 - 54 ALT- 177- 124 Status: Acute Additional A&P Information DVT prophylaxis Lovenox 40 mg subcu daily Attestations Medical Necessity Statement*: Will require further hospitalization for m anagement of hypoxemic respiratory failure due to COVID-19 pneumonia requiring positive-pressure ventilation. Time Spent in Patient Care: Greater than 35 minutes (>than 50% of time spent in counselling and/or direct pt care on unit) . 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
--- NOTE | 2021-05-02 16:39 | PC.RESP ---
At 1500, Patient having a difficult time taking deep breaths and catching her breath despite being on High Flow oxygen. Called physician, he asked to place patient back on cpap/bipap. Attempted to place patient on CPAP, patient did not tolerate this. Patient back on heated high flow. Requested something for anxiety from physician at this time.
[2021-05-02] MEDS: dexamethasone 10 mg/mL INJ 6 MG IVP (17:54)
--- NOTE | 2021-05-02 18:07 | PC.RESP ---
RT Shift Note Frequent safety and respiratory rounds continue. Orders completed as indicated. Patient monitored pre and post treatments throughout shift. Patient tolerated treatments appropriately. Condition did not change. Patient and/or sales and marketing representative educated on respiratory treatment and medications. Patient and/or sales and marketing representative verbalized understanding. Will continue to monitor patient progress.
[2021-05-03] VITALS (58 sets, daily range): BP systolic 95–135; BP diastolic 67–83; PULSE 65–125; RESP 19–38; TEMP 36.3–37.4; O2SAT 83–100
[2021-05-03 04:56] LABS: ABG PCO2 42.7 mmHg (35-45); ABG PH Result 7.44 (7.35-7.45); Arterial Blood Gas Hematocrit 44.8 % (37-47); Blood Gas Allen Test Pos; Blood Gas Sample Site Radial, right; Blood Gas Sample Type Arterial; HCO3 ABG 28.8 mmol/L (22-26); PO2 ABG 71.6 mmHg (80.0-100.0)
[2021-05-03 05:03] LABS: Oxygen Device BIPAP
--- NOTE | 2021-05-03 05:15 | PC.RESP ---
RT Shift Note Frequent safety and respiratory rounds continue. Orders completed as indicated. Patient monitored pre and post treatments throughout shift. Patient tolerated treatments appropriately. Condition improved after placing on bipap. Patient educated on respiratory treatment and medications. Patient and/or front desk representative verbalized understanding. Will continue to monitor patient progress.
[2021-05-03] MEDS: pantoprazole 40 mg SDV IVP (05:18)
--- NOTE | 2021-05-03 05:54 | PC.NURSE ---
Pt acutely anxious, and she desats to 78% and is difficult to recover. Pt currently on maxed HHF with occasional use on nonrebreather.
[2021-05-03] MEDS: remdesivir 100 MG in sodium chloride 0.9% (100 ml) 100 ML IV (06:35)
[2021-05-03] MEDS: heparin 5,000 unit/mL INJ 1 mL 5000 UNIT SUBCUT ×3 (06:36→21:11)
[2021-05-03 07:02] LABS: Basophils % 0.2 %; Eosinophils # 0.1 10^3/uL (0.0-0.8); Eosinophils % 1.3 %; Hematocrit 42.7 % (37.0-47.0); Lymphocytes # 0.8 10^3/uL (0.8-4.8); Lymphocytes % 8.6 %; Mean Corpuscular HGB Conc 32.8 g/dL (30.0-36.0); Mean Corpuscular Hemoglobin 29.2 pg (28.0-34.0); Mean Corpuscular Volume 89.1 fL (81-99); Mean Platelet Volume 9.5 fL (7.4-10.4); Monocytes # 0.4 10^3/uL (0.2-0.9); Monocytes % 4.5 %; Neutrophils # 7.78 10^3/uL (1.8-7.7); Neutrophils % 81.8 %; Nucleated Red Blood Cells % 0 %; Platelet Count 536 10^3/cmm (130-400); Red Blood Count 4.79 10^6/uL (4.1-5.3); Red Cell Distribution Width 12.7 % (12.1-15.1); White Blood Count 9.5 10^3/uL (4.0-10.0)
[2021-05-03 07:16] LABS: INR 0.98 (0.8-1.2)
[2021-05-03 07:24] LABS: Lactate (Lactic Acid level) 2.1 mmol/L (0.5-2.2)
[2021-05-03 07:35] LABS: Alanine Aminotransferase 103 U/L (0-33); Albumin Level 3.3 g/dL (3.5-5.2); Alkaline Phosphatase 92 IU/L (35-105); Anion Gap 14.2 (5-19); Aspartate Amino Transferase 49 U/L (0-32); Blood Urea Nitrogen 15 mg/dL (6-20); C Reactive Protein 6.8 mg/L (0.0-4.9); Calcium 8.5 mg/dL (8.5-10.5); Carbon Dioxide 25 mmol/L (22-29); Chloride 102 mmol/L (98-107); Creatine Phosphokinase 46 U/L (26-192); Globulin 3.1 g/dL (1.3-4.6); Glomerular Filtration Rate 134.7 mL/min (90-130); Glucose 124 mg/dL (65-115); Magnesium 2.6 mg/dL (1.7-2.3); NT Pro B Type Natriuretic Pept 64 pg/mL (0-125); Osmolality Calculated 286 mOsm/kg (285-295); Phosphorus 3.7 mg/dL (2.5-4.5); Potassium 4.2 mmol/L (3.5-5.1); Sodium 137 mmol/L (136-145); Total Bilirubin 0.5 mg/dL (0.15-1.2); Total Protein 6.4 g/dL (6.6-8.7)
[2021-05-03 07:52] LABS: Ferritin 1386 ng/mL (15-150)
[2021-05-03] MEDS: budesonide 0.5 mg/2 mL Neb INHALATION ×2 (09:12→22:35)
[2021-05-03] MEDS: ALPRAZolam 0.5 mg Tablet PO ×3 (09:16→22:46)
[2021-05-03] MEDS: cholecalciferol (vitamin D3) 1,000 unit Tablet 1000 UNIT PO (09:17)
[2021-05-03] MEDS: zinc gluconate 50 mg Tablet PO (09:17)
[2021-05-03] MEDS: ascorbic acid 500 mg Tablet PO ×2 (09:17→17:28)
[2021-05-03] MEDS: azithromycin 500 MG in sodium chloride 0.9% 250 ML 250 MG IV (10:46)
--- NOTE | 2021-05-03 10:59 | PC.CHAP ---
Pastoral Care Encounter/Spiritual Assessment Type of Contact [] Declined manual machinist visit [] Patient/Family/Request visit [] Outpatient visit [] Follow-up visit [] Physician referral [] Code/Alert [x] Routine visit [] Staff referral [] Actively dying [] Patient sleeping [] Family support [] [] Out of room [] Palliative care [] [] Receiving care in room [] Pre-surgical visit [] Trauma [] Long length of stay [] ICU visit [x] Other: 2A Relational/Emotional Strength [] Patient feels connected with others/family/visitors/staff [] Distress [] Loneliness/isolation [] Abandonment Spirituality of Patient [] Person of Maria R [] Attends Alevism of their Maria R [] Believes in Prayer [] Reads Bible or Yazidi materials [] There are Spiritual issues to be addressed Linseed Cake Trimmer Interventions [x] Prayer [] Active listening [] Non-anxious presence [] Spiritual/emotional support [] Crisis/trauma care [] Spiritual counseling [] Bereavement support [] Provided bereavement packet [] Provided Bible/devotional materials [] Provided toy/stuffed animal, coloring book to patient or family member [] Provided Communion [] Anointing/Fisher [] Salvation [x] Completed spiritual assessment [] Other: Impact on Illness or Injury [] Angry [] Fearful [] Anxious [] Often cries [] Exhaustion [] Unable to work [] Unable to attend hinduism [] Unable to walk/stand [] Unable to read [] Unable to drive [] Unable to eat/drink [] Unable to sleep [] Unable to be with family [] Patient intubated [] Other: Summary Time spent with patient
[2021-05-03] MEDS: cefTRIAXone 1,000 MG in sodium chloride 0.9% (plus) 50 ML 100 MG IV (14:49)
--- NOTE | 2021-05-03 15:49 | PM.PN ---
Subjective Subjective: Interval history: 45 year old female With no significant past medical history who presented to the hospital with respiratory distress. Patient stated symptom had been ongoing for a little less than 1 week. This was associated with fever, chills, cough and overall generalized weakness.Patient is unvaccinated. Upon arrival to emergency room patients initial laboratory workup showed a WBC of 11.7, hemoglobin of 13.5, hematocrit of 40.6 and a platelet count of 377.D-dimer 2.43.Arterial blood gases showed a pH of 7.47, pCO2 38.7 and bicarb of 28.2.Sodium 136, potassium 4.5 chloride 97 bicarb 27.BUN 12 and creatinine 0.7. AST was elevated at 169, ALT of 177, alkaline phosphatase of 102. ProBNP of 190. CRP of 37.4. Ferritin of 2606. Procalcitonin 0.11.Chest CTA did not show any visible evidence of pulmonary embolism however was noted have bilateral predominant peripheral patches of ground-glass interstitial lung disease opacification consistent with COVID-19 pneumonia. Also noted to have a potentially 13 mm nodule of the thyroid isthmus.In emergency room patient was given Decadron 6 mg IV x1 and admitted to the hospital. At the time of my evaluation patient was a high-flow nasal cannula requiring 60 L at 100% FiO2. Upon admission to the hospital patient was treated with Actemra on 04/30/2021. Also started on ceftriaxone and azithromycin for suspected superimposed bacterial infection. 05/02 Patinet was agreeable to BIPAP overnight. This am transitioned to HFNC. Continues to require >90% FIo2. NO fever, chills, nausea or vomiting. Medications: Reviewed: Yes Vitals/I&O/Wt Last Vital Signs Temp 97.8 F 05/03/21 12:00 Pulse 84 05/03/21 14:38 Resp 36 H 05/03/21 14:26 BP 115/70 05/03/21 12:00 Pulse Ox 93 05/03/21 14:38 05/03/21 05/03/21 05/03/21 06:59 14:59 22:59 Intake Total 150 / 1170 950 / 950 Balance 150 / 520 950 / 950 Physical Exam Narrative: EXAM NARRATIVE: General-alert awake and oriented on high-flow nasal cannula HEENT- grossly unremarkable CVS- normal sinus rhythm Chest-nonlabored respiration Abdomen -nondistended Extremities -no edema Urinary Catheter Management^: Torres: Cath Placed During This Visit: yes Urinary Catheter Date of Insertion: 05/03/21 Urinary Catheter Time of Insertion: 10:45 Data : 05/03/21 06:27 05/03/21 06:27 A&P Assessment and plan (1) Acute hypoxemic respiratory failure due to COVID-19: Currently changed from HFNC to BIPAP 10/07, FIO2 85% Remdesivir D4 of 5 today Decadron 6 mg daily for total of [address] angiogram no radiographic evidence of pulmonary emboli First dose Actemra 04/30/2021 Albuterol, budesonide Rocephin and azithromycin for prophylaxis for secondary bacterial pneumonia Plan for total of 5 days of antibiotics Vitamin C, zinc, vitamin D Incentive spirometer, flutter valve Pulmonary toilet, prone positioning Pulmonary Consulted Will transfer to ICU - High risk of intubation Plan for today, continue antibiotics continue Decadron continue remdesivir, aggressive pulmonary toilet Status: Acute (2) Pneumonia due to COVID-19 virus: Status: Acute (3) Transaminitis: Repeat CMP in a.m AST- 169 - 54 ALT- 177- 124 Improving Status: Acute Additional A&P Information DVT prophylaxis Lovenox 40 mg subcu daily Attestations Medical Necessity Statement*: Will require further hospitalization for management of covid19 pneumonia with respiratory failure Time Spent in Patient Care: Greater than 35 minutes (>than 50% of time spent in counselling and/or direct pt care on unit). 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
--- NOTE | 2021-05-03 18:10 | PC.NURSE ---
Shift Note Patients oxygen demands have increased, she is currently on bipap at 100%, patient is waiting for bed in the ICU. Frequent safety and comfort rounds continue. Orders and/or nursing care completed as indicated. Patient monitored for response to intervention and treatment(s). Education provided includes deep breathing, anxiety reduction techniques, and conserving oxygen. Patient and/or veterans service representative states verbal understanding. Will continue to monitor.
[2021-05-03] MEDS: dexamethasone 10 mg/mL INJ 6 MG IVP (19:21)
--- NOTE | 2021-05-03 20:15 | PC.NURSE ---
Patient arrived via bed with nursing staff and respiratory on 100% NRB. Patient placed on ICU monitors and then on Bipap. Patient is very anxious at this time and is fighting the bipap. This nurse has reassured her and calmed her down. Will continue to monitor.
[2021-05-04] VITALS (96 sets, daily range): BP systolic 90–154; BP diastolic 55–101; PULSE 51–100; RESP 16–38; TEMP 36.2–37; O2SAT 79–100
[2021-05-04] MEDS: dexmedetomidine 400 MCG in sodium chloride 0.9% (100 ml) 100 ML IV (01:34)
[2021-05-04] MEDS: remdesivir 100 MG in sodium chloride 0.9% (100 ml) 100 ML 300 MG IV (05:08)
[2021-05-04] MEDS: pantoprazole 40 mg SDV IVP (05:08)
[2021-05-04] MEDS: heparin 5,000 unit/mL INJ 1 mL 5000 UNIT SUBCUT ×3 (05:08→21:51)
[2021-05-04 05:55] LABS: Basophils # 0.1 10^3/uL (0.0-0.1); Basophils % 0.4 %; Eosinophils # 0.2 10^3/uL (0.0-0.8); Eosinophils % 1.7 %; Hematocrit 42.6 % (37.0-47.0); Lymphocytes # 0.8 10^3/uL (0.8-4.8); Lymphocytes % 6.6 %; Mean Corpuscular HGB Conc 32.9 g/dL (30.0-36.0); Mean Corpuscular Volume 88.2 fL (81-99); Mean Platelet Volume 9.6 fL (7.4-10.4); Monocytes # 0.4 10^3/uL (0.2-0.9); Monocytes % 2.9 %; Neutrophils # 10.33 10^3/uL (1.8-7.7); Neutrophils % 84.3 %; Nucleated Red Blood Cells % 0 %; Platelet Count 521 10^3/cmm (130-400); Red Blood Count 4.83 10^6/uL (4.1-5.3); Red Cell Distribution Width 12.9 % (12.1-15.1); White Blood Count 12.3 10^3/uL (4.0-10.0)
[2021-05-04 08:04] LABS: Alanine Aminotransferase 111 U/L (0-33); Albumin Level 3.3 g/dL (3.5-5.2); Alkaline Phosphatase 87 IU/L (35-105); Blood Urea Nitrogen 14 mg/dL (6-20); Calcium 8.5 mg/dL (8.5-10.5); Carbon Dioxide 23 mmol/L (22-29); Chloride 100 mmol/L (98-107); Globulin 2.7 g/dL (1.3-4.6); Glomerular Filtration Rate 134.7 mL/min (90-130); Glucose 123 mg/dL (65-115); Osmolality Calculated 280 mOsm/kg (285-295); Sodium 134 mmol/L (136-145); Total Bilirubin 0.5 mg/dL (0.15-1.2)
[2021-05-04 08:24] LABS: Anion Gap 16.1 (5-19); Aspartate Amino Transferase 57 U/L (0-32); Potassium 5.1 mmol/L (3.5-5.1)
[2021-05-04] MEDS: budesonide 0.5 mg/2 mL Neb INHALATION ×2 (09:29→21:46)
[2021-05-04] MEDS: zinc gluconate 50 mg Tablet PO (09:32)
[2021-05-04] MEDS: ascorbic acid 500 mg Tablet PO ×2 (09:32→18:41)
[2021-05-04] MEDS: azithromycin 500 MG in sodium chloride 0.9% 250 ML 250 MG IV (09:32)
[2021-05-04] MEDS: cholecalciferol (vitamin D3) 1,000 unit Tablet 1000 UNIT PO (09:32)
[2021-05-04] MEDS: ALPRAZolam 0.5 mg Tablet PO ×2 (09:57→21:55)
--- NOTE | 2021-05-04 10:00 | PC.NURSE ---
Pt up to chair at bedside. Pt able to bear weight and move with minimal assistance. Pt became anxious, Precedex gtt increased for her comfort to 0.4 mcg/kg/hr. Pt needs encouragement to smell a flower and blow out a candle Admin a PRN Xanax as well, see MAR. O2 sats started climbing back up, at 86%.
--- NOTE | 2021-05-04 10:20 | PC.NURSE ---
Nahun River, son ; Called to check on pt. Pt verbalized permission to update son whenever he calls. [phone] Nahun's phone number.
--- NOTE | 2021-05-04 11:38 | PC.NUTR ---
Nutrition assessment completed for 5d LOS. Po intakes averaging 43% X 12 meals 04/30-05/03. Discussed meal preferences with pt. She declines a nutritional supplement at this time, but does state she would consume pudding. Does not want finger foods, and states sandwiches are too difficult to eat. Encouraged pt to notify nursing of further food preferences. See full RD assessment for further details.
--- NOTE | 2021-05-04 13:15 | PC.NURSE ---
Pt back to bed. PT at bedside. Pt tolerated much better. O2 sats at 89% when done.
--- NOTE | 2021-05-04 13:20 | PC.NURSE ---
Home meds in ICU erica bah notified
[2021-05-04] MEDS: cefTRIAXone 1,000 MG in sodium chloride 0.9% (plus) 50 ML 100 MG IV (15:09)
--- NOTE | 2021-05-04 15:10 | PC.NURSE ---
MAR delay related to other patient's care.
[2021-05-04] MEDS: dexmedetomidine 400 MCG in sodium chloride 0.9% (100 ml) 100 ML 9.72 MCG IV (17:10)
--- NOTE | 2021-05-04 17:28 | P.PN_ITS ---
Subjective Subjective: Interval history: 45 year old female With no significant past medical history who presented to the hospital with respiratory distress. Patient stated symptom had been ongoing for a little less than 1 week. This was associated with fever, chills, cough and overall generalized weakness.Patient is unvaccinated. Upon arrival to emergency room patients initial laboratory w orkup showed a WBC of 11.7, hemoglobin of 13.5, hematocrit of 40.6 and a platelet count of 377.D-dimer 2.43.Arterial blood gases showed a pH of 7.47, pCO2 38.7 and bicarb of 28.2.Sodium 136, potassium 4.5 chloride 97 bicarb 27.BUN 12 and creatinine 0.7. AST was elevated at 169, ALT of 177, alkaline phosphatase of 102. ProBNP of 190. CRP of 37.4. Ferritin of 2606. Procalcitonin 0.11.Chest CTA did not show any visible evidence of pulmonary embolism however was noted have bilateral predominant peripheral patches of ground-glass interstitial lung disease opacification consistent with COVID-19 pneumonia. Also noted to have a potentially 13 mm nodule of the thyroid isthmus.In emergency room patient was given Decadron 6 mg IV x1 and admitted to the hospital. At the time of my evaluation patient was a high-flow nasal cannula requiring 60 L at 100% FiO2. Upon admission to the hospital patient was treated with Actemra on 04/30/2021. Also started on ceftriaxone and azithromycin for suspected superimposed bacterial infection. 05/02 Patinet was agreeable to BIPAP overnight. This am transitioned to HFNC. Continues to require >90% FIo2. NO fever, chills, nausea or vomiting. 05/03 Patient was requiring up to 100% FiO2. Transferred to ICU. 05/04 Patient was started on Precedex drip. Stable overnight on high-flow Medications: Reviewed: Yes Vitals/I&O/Wt Last Vital Signs Temp 98.6 F 05/04/21 04:00 Pulse 72 05/04/21 17:19 Resp 20 H 05/04/21 17:16 BP 126/80 05/04/21 06:00 Pulse Ox 90 05/04/21 17:16 05/04/21 05/04/21 05/04/21 06:59 14:59 22:59 Intake Total 480.527 / 1630.527 141.756 / 141.756 61.717 / 203.473 Output Total 500 / 1250 Balance -19.473 / 380.527 141.756 / 141.756 61.717 / 203.473 Physical Exam Narrative: EXAM NARRATIVE: General-alert awake and oriented on high-flow nasal cannula HEENT- grossly unremarkable CVS- normal sinus rhythm Chest-nonlabored respiration Abdomen -nondistended Extremities -no edema Urinary Catheter Management^: Torres: Cath Placed During This Visit: yes Reason for Continuing Indwelling Catheter: Accurate Measurement of Urinary Output in Critically Ill Patients Urinary Catheter Date of Insertion: 05/03/21 Urinary Catheter Time of Insertion: 10:45 Data : 05/04/21 04:30 05/04/21 05:35 A&P Assessment and plan (1) Acute hypoxemic respiratory failure due to COVID-19: Currently changed from HFNC to BIPAP 10/07, FIO2 85% Remdesivir D4 of 5 today Decadron 6 mg daily for total of [address] angiogram no radiographic evidence of pulmonary emboli First dose Actemra 04/30/2021 Albuterol, budesonide Rocephin and azithromycin for prophylaxis for secondary bacterial pneumonia Plan for total of 5 days of antibiotics Vitamin C, zinc, vitamin D Incentive spirometer, flutter valve Pulmonary toilet, prone positioning Pulmonary Consulted Patient was started on Precedex drip Remained on high-flow Plan for today, continue antibiotics continue Decadron continue remdesivir, aggressive pulmonary toilet Status: Acute (2) Pneumonia due to COVID-19 virus: Status: Acute (3) Transaminitis: Repeat CMP in a.m AST- 169 - 54 ALT- 177- 124 Improving Status: Acute Additional A&P Information DVT prophylaxis Lovenox 40 mg subcu daily Attestations Medical Necessity Statement*: Require further hospitalization for management of COVID-19 pneumonia requiring high-flow oxygen Time Spent in Patient Care: Greater than 35 minutes (>than 50% of time spent in counselling and/or direct pt care on unit) . Coding Level of Care Code Acute In[employer] for [employer] Diagnoses Acute hypoxemic respiratory failure due to COVID-19 U07.1; J96.01 Pneumonia due to COVID-19 virus U07.1; J12.82 Transaminitis R74.01
--- NOTE | 2021-05-04 17:35 | PC.NURSE ---
Pt up to chair at bedside. Pt audreyer on her feet, needed less assistance.
--- NOTE | 2021-05-04 17:53 | PC.RESP ---
RT Shift Note Frequent safety and respiratory rounds continue. Orders completed as indicated. Patient monitored pre and post treatments throughout shift. Patient [Did.] tolerate treatments appropriately. Condition [.DidNotChange]. Patient and/or patient support representative educated on respiratory treatment and medications. Patient and/or patient support representative [unable to comprehend]. Will continue to monitor patient progress.
--- NOTE | 2021-05-04 18:20 | PC.NURSE ---
Pt assisted back to bed, with standby by assist. Her O2 sats stayed 94% during transfer.
[2021-05-04] MEDS: dexamethasone 10 mg/mL INJ 6 MG IVP (18:41)
--- NOTE | 2021-05-04 19:45 | PC.NURSE ---
Shift summary: Pt alert and oriented. SHe does get anxious with moving. She moans on exhaling. She remains on Heated high flow throughout the shift, am settings: 50 liters and 80%, pm settings increased 55 liters and 95%. End of shift lung auscultated improved air movement. She remains on Precedex gtt now infusing at 0.3 mcg/kg/hr. Per Datar ok if heart rate is 56/57. She does get more bradycardiac while resting with eyes closed. Frequent safety and comfort rounds continue. Orders and/or nursing care completed as indicated. Patient monitored for response to intervention and treatment(s). Education provided includes Precedex . Patient and/or manufacturing sales representative verbalized understadning Will continue to monitor.
--- NOTE | 2021-05-04 22:33 | PM.CONSULT ---
Providers/Reason For Consult Consulting Physician/Specialty*: Truong Koch MD/ Pulmonary Critical Care Reason for Consult*: Acute hypoxic respiratory failure secondary to ARDS due to COVID-19 pneumonia Requesting Physician: Kelly Davidson Attending Physician: Kelly Davidson History of Present Illness History of Present Illness Lakisha Esqueda is a 45 year old female with past medical history of obesity admitted on 04/29/2021 for acute hypoxic respiratory failure secondary to COVID-19 pneumonia-gradually her O2 requirements increased and she is currently requiring 50 L 80%. Pulmonary critical care consulted for impending respiratory failure. Patient was accepted to ICU for close respiratory monitoring. Today morning patient seen at bedside Appeared anxious but encouraged her to sit out of bed to chair and continue incentive spirometry She is requiring 55 L and 90% FiO2 Review of Systems General: Reports: 10 or more systems reviewed and unremarkable except in HPI and below Meds/Allergies Home Medications and Allergies Home Medications Medication Instructions Recorded Confirmed Last Taken Type albuterol sulfate 2 puff INHALATION QID PRN 04/29/21 04/29/21 04/29/21 17:00 History azithromycin 250 mg PO BEDTIME 04/29/21 04/29/21 04/28/21 21:00 History prednisone 40 mg PO DAILY 04/29/21 04/29/21 04/29/21 08:00 History Allergies Allergy/AdvReac Type Severity Reaction Status Date / Time No Known Allergies Allergy Verified 04/29/21 23:31 Current Medications Current Medications Generic Name Dose Route Start Last Admin Trade Name Freq PRN Reason Stop Dose Admin Albuterol Sulfate 2.5 mg 04/30/21 03:00 05/04/21 21:45 Albuterol 2.5 Mg/0.5 Ml Neb INHALATION 2.5 mg Q6H.RESPIRATORY STEPHIE Administration Alprazolam 0.5 mg 05/02/21 15:32 05/04/21 21:55 Alprazolam 0.5 Mg Tablet PO 0.5 mg TID PRN Administration anxiety Ascorbic Acid 500 mg 04/30/21 09:00 05/04/21 18:41 Ascorbic Acid 500 Mg Tablet PO 500 mg BID STEPHIE Administration Budesonide 0.5 mg 04/30/21 12:00 05/04/21 21:46 Budesonide 0.5 Mg/2 Ml Neb INHALATION 0.5 mg BID.RESPIRATORY STEPHIE Administration Dexamethasone 6 mg 04/30/21 05:15 05/04/21 18:41 Dexamethasone 10 Mg/Ml Inj IVP 6 mg Q24H STEPHIE Administration Heparin Sodium (Beef Lung) 5,000 unit 04/30/21 06:00 05/04/21 21:51 Heparin 5,000 Unit/Ml Inj 1 Ml SUBCUT 5,000 unit Q8H STEPHIE Administration Ceftriaxone Sodium 1,000 mg/ 50 mls @ 100 mls/hr 04/30/21 11:00 05/04/21 15:40 Sodium Chloride IV Infused Q24H STEPHIE Infusion Protocol Azithromycin 500 mg/ Sodium 250 mls @ 250 mls/hr 04/30/21 10:00 05/04/21 10:35 Chloride IV Infused Q24H STEPHIE Infusion Protocol Dexmedetomidine HCl 400 mcg/ 104 mls @ 0 mls/hr 05/03/21 23:45 05/04/21 18:57 Sodium Chloride IV 0.3 mcg/kg/hr .Q0M STEPHIE 7.29 mls/hr Titration Protocol Per Protocol Pantoprazole Sodium 40 mg 04/30/21 03:30 05/04/21 05:08 Pantoprazole 40 Mg Sdv IVP 40 mg Q24H STEPHIE Administration Vitamin D 1,000 unit 04/30/21 09:00 05/04/21 09:32 Cholecalciferol (Vitamin D3) 1,000 Unit Tablet PO 1,000 unit DAILY STEPHIE Administration Zinc Gluconate 50 mg 04/30/21 09:00 05/04/21 09:32 Zinc Gluconate 50 Mg Tablet PO 50 mg DAILY STEPHIE Administration PFSH Acute PFSH: Medical History Morbid obesity No pertinent family history Surgical History No pertinent past surgical history Social History Smoking and tobacco status: never smoked Alcohol intake: never Substance/Drug Use: never Vitals/I&O/Wt Last Vital Signs Temp 97.5 F L 05/04/21 22:00 Pulse 71 05/04/21 22:00 Resp 18 05/04/21 22:00 BP 115/76 05/04/21 22:00 Pulse Ox 98 05/04/21 21:45 05/04/21 05/04/21 05/04/21 06:59 14:59 22:59 Intake Total 480.527 / 1375.399 6789.756 / 1541.756 329.051 / 1870.807 Output Total 500 / 1250 Balance -19.473 / 417.985 8964.756 / 1541.756 329.051 / 1870.807 Physical Exam Narrative: EXAM NARRATIVE: General: alert, in moderate respiratory distress HEENT: conj clear, EOMI, PERRL, mmm, Neck: supple, no meningismus Heme: no cervical LAP Pulmonary: Bilateral diffuse crepitations Cardiovascular: rrr, nl s1s2, no mrg Abdomen: soft, nt, nd, no r/g, bs+ Extremities: pulses +, no edema, no c/c : no CVA tenderness Skin: intact, no rash MSK: no back or neck pain Neurologic: grossly intact Urinary Catheter Management^: Torres: Cath Placed During This Visit: yes Reason for Continuing Indwelling Catheter: Accurate Measurement of Urinary Output in Critically Ill Patients Urinary Catheter Date of Insertion: 05/03/21 Urinary Catheter Time of Insertion: 10:45 Data Labs: Other Labs: Laboratory Results WBC 12.3 10^3/uL (4.0 -10.0) H 05/04/21 04:30 RBC 4.83 10^6/uL (4.1 -5.3) 05/04/21 04:30 Hgb 14.0 g/dL (11.5-1 5.3) 05/04/21 04:30 Hct 42.6 % (37.0-47.0 ) 05/04/21 04:30 MCV 88.2 fL (81-99) 05/04/21 04:30 MCH 29.0 pg (28.0-34. 0) 05/04/21 04:30 MCHC 32.9 g/dL (30.0-3 6.0) 05/04/21 04:30 RDW 12.9 % (12.1-15.1 ) 05/04/21 04:30 Plt Count 521 10^3/cmm (130 -400) H 05/04/21 04:30 MPV 9.6 fL (7.4-10.4) 05/04/21 04:30 Neut % (Auto) 84.3 % 05/04/21 04:30 Lymph % (Auto) 6.6 % 05/04/21 04:30 [place] % (Auto) 2.9 % 05/04/21 04:30 Eos % (Auto) 1.7 % 05/04/21 04:30 Baso % (Auto) 0.4 % 05/04/21 04:30 Neut # (Auto) 10.33 10^3/uL (1. 8-7.7) H 05/04/21 04:30 Lymph # (Auto) 0.8 10^3/uL (0.8- 4.8) 05/04/21 04:30 [place] # (Auto) 0.4 10^3/uL (0.2- 0.9) 05/04/21 04:30 Eos # (Auto) 0.2 10^3/uL (0.0- 0.8) 05/04/21 04:30 Baso # (Auto) 0.1 10^3/uL (0.0- 0.1) 05/04/21 04:30 Nucleated RBC % (a uto) 0 % 05/04/21 04:30 Nucleated RBCs # 0.0 /100WBC 05/04/21 04:30 PT 13.30 SECONDS (12 .1-14.9) 05/03/21 06:27 INR 0.98 (0.8-1.2) 05/03/21 06:27 D-Dimer 2.43 ug/mIFEU (0- 0.59) H 04/29/21 18:27 Specimen Type Arterial 05/03/21 04:50 Sample Site Radial, right 05/03/21 04:50 ABG pH 7.44 (7.35-7.45) 05/03/21 04:50 ABG pCO2 42.7 mmHg (35-45) 05/03/21 04:50 ABG pO2 71.6 mmHg (80.0-1 00.0) L 05/03/21 04:50 ABG HCO3 28.8 mmol/L (22-2 6) H 05/03/21 04:50 ABG Base Excess 4.0 mmol/L (-2.0- 2.0) H 05/03/21 04:50 Akhil Test Pos 05/03/21 04:50 Hematocrit 44.8 % (37-47) 05/03/21 04:50 O2 Delivery Device Bipap 05/03/21 04:50 O2 Liters/Min 50.0 % 05/01/21 04:20 FiO2 70.0 % 05/03/21 04:50 Digital Imaging Specialist ID yorna 05/03/21 04:50 Sodium 134 mmol/L (136-1 45) L 05/04/21 05:35 Potassium 5.1 mmol/L (3.5-5 .1) 05/04/21 05:35 Chloride 100 mmol/L (98-10 7) 05/04/21 05:35 Carbon Dioxide 23 mmol/L (22-29) 05/04/21 05:35 Anion Gap 16.1 (5-19) 05/04/21 05:35 BUN 14 mg/dL (6-20) 05/04/21 05:35 Creatinine 0.5 mg/dL (0.5-0. 9) 05/04/21 05:35 GFR Calculation 134.7 mL/min (90- 130) H 05/04/21 05:35 Glucose 123 mg/dL (65-115 ) H 05/04/21 05:35 Calculated Osmolal ity 280 mOsm/kg (285- 295) L 05/04/21 05:35 Lactic Acid 1.9 mmol/L (0.5-2 .2) 04/29/21 18:27 Lactate 2.1 mmol/L (0.5-2 .2) 05/03/21 06:27 Calcium 8.5 mg/dL (8.5-10 .5) 05/04/21 05:35 Phosphorus 3.7 mg/dL (2.5-4. 5) 05/03/21 06:27 Magnesium 2.6 mg/dL (1.7-2. 3) H 05/03/21 06:27 Ferritin 1386 ng/mL (15-15 0) H 05/03/21 06:27 Total Bilirubin 0.5 mg/dL (0.15-1 .2) 05/04/21 05:35 AST 57 U/L (0-32) H 05/04/21 05:35 ALT 111 U/L (0-33) H 05/04/21 05:35 Alkaline Phosphata se 87 IU/L (35-105) 05/04/21 05:35 Creatine Kinase 46 U/L (26-192) 05/03/21 06:27 C-Reactive Protein 6.8 mg/L (0.0-4.9 ) H 05/03/21 06:27 NT-Pro-B Natriuret Pep 64 pg/mL (0-125) 05/03/21 06:27 Total Protein 6.0 g/dL (6.6-8.7 ) L 05/04/21 05:35 Albumin 3.3 g/dL (3.5-5.2 ) L 05/04/21 05:35 Globulin 2.7 g/dL (1.3-4.6 ) 05/04/21 05:35 Procalcitonin 0.07 ng/mL (0-0.5 ) 05/01/21 04:02 Impressions Chest CTA 04/29/21 19:13 IMPRESSION: 1. No visible evidence of pulmonary embolism/pulmonary arterial thrombus. 2. Bilateral, predominantly peripheral, patches of ground-glass interstitial lung disease opacification with patches of crazy paving and early consolidated alveolar airspace disease consistent with active pneumonitis/pneumonia. Overall constellation of findings would be consistent with Covid-19 pneumonitis/pneumonia. 3. Potential 13 mm nodule at the thyroid isthmus. Not well imaged due to quantum mottle artifact. No follow-up is recommended. COMMENTS: Consistent with the [employer]'s Incidental Findings Committee white paper (J Am Rosamaria Radiol 2015): In patients aged 35 years and older with an incidental thyroid nodule equal to or greater than 1.[address], MRI or extrathyroidal US, further evaluation with dedicated thyroid US is recommended for patients with normal life expectancy and without comorbidities. For smaller nodules without suspicious features, no further evaluation or follow up is recommended. Radiation Dose CTDIVOL = (mGy): DLP = 584.78 (mGy-cm) Chest X-Ray 05/01/21 07:00 IMPRESSION: Multifocal bilateral ground-glass opacities are noted, increased. Findings may be seen with viral pneumonia. A&P Assessment and plan (1) Acute respiratory distress syndrome (ARDS) due to 2019 novel coronavirus: Status: Acute (2) Acute hypoxemic respiratory failure due to COVID-19: Status: Acute (3) Transaminitis: Status: Acute Currently changed on HFNC 55 L and 90%-low threshold for intubation Remdesivir started on 04/30/2021-to complete tomorrow Decadron 6 mg daily started on 04/30/2021 for total of [address] angiogram no radiographic evidence of pulmonary emboli First dose Actemra 04/30/2021 Albuterol, budesonide Rocephin and azithromycin for prophylaxis for secondary bacterial pneumonia -DC tomorrow Incentive spirometer, flutter valve Pulmonary toilet, prone positioning On Xanax 0.5 mg p.o. 3 times daily as needed for anxiety patient was started on Precedex drip for anxiety Monitor LFTs Full code Prognosis guarded Regular diet Heparin subcu for deep VT prophylaxis Recommendations conveyed to hospitalist, RN, RT taking care of the patient Consult Attestations Medical Necessity Statement: Acute hypoxic respiratory failure secondary to ARDS due to COVID-19 pneumonia requiring high flow nasal cannula-requires close ICU monitoring for impending respiratory failure Time Spent in Patient Care: Greater than 35 minutes (>than 50% of time spent in counselling and/or direct pt care on unit). Critical Care Time: The high probability of a clinically significant, sudden or life threatening deterioration of the patient's [] system(s) required my full and direct attention, intervention and personal management. The critical care time is as shown. This time is in addition to time spent performing any reported procedures but includes the following: [x] Data and vital sign review and interpretation [x] Patient assessment, examination and intervention [x] Documentation [x] Medication orders and management Critical Care Time (min): 45 Coding Level of Care Code Acute It Program Engagement Director for [facility] Diagnoses Acute respiratory distress syndrome (ARDS) due to 2019 novel coronavirus U07.1; J80 Acute hypoxemic respiratory failure due to COVID-19 U07.1; J96.01 Transaminitis R74.01
[2021-05-05] VITALS (34 sets, daily range): BP systolic 83–135; BP diastolic 52–95; PULSE 55–107; RESP 17–40; TEMP 35.9–37.2; O2SAT 85–99
--- NOTE | 2021-05-05 04:00 | XR_ITS ---
WS: [id number] Portable AP upright chest, 05/05/2021 Clinical Data: Pneumonia Comparison: Portable chest, 05/01/2021. Findings: Diffuse bilateral pulmonary opacities have increased compared to the prior x-ray. The heart size is normal. No nodules or masses are seen. Monitor leads are on the chest wall. XR/XR chest 1V portable [id number] Impression: Increased bilateral pulmonary opacities consistent with pneumonia.
[2021-05-05] MEDS: heparin 5,000 unit/mL INJ 1 mL 5000 UNIT SUBCUT ×3 (06:14→21:04)
[2021-05-05] MEDS: pantoprazole 40 mg SDV IVP (06:14)
[2021-05-05] MEDS: dexmedetomidine 400 MCG in sodium chloride 0.9% (100 ml) 100 ML 7.29 MCG IV ×2 (06:47→21:10)
--- NOTE | 2021-05-05 07:22 | PC.NURSE ---
Patient remains stable. Nil distress noted. Remains on HHF 55L/80%. SPO2 95-97%. Precedex infusion maintained. Torres remains in place. Observation continues.
--- NOTE | 2021-05-05 08:00 | PC.NURSE ---
Pt up to chair in room. Pt panting and moaning , not taking full breaths.. Encouraged pt to calm herself and deep breaths. Precedex increased briefly for her comfort. O2 sats did decreased. Pt encouraged to slow down her breaths and breath deeply through her nose. When pt calmer her sats do improve appropriately.
[2021-05-05] MEDS: ascorbic acid 500 mg Tablet PO ×2 (09:15→18:06)
[2021-05-05] MEDS: cholecalciferol (vitamin D3) 1,000 unit Tablet 1000 UNIT PO (09:15)
[2021-05-05] MEDS: ALPRAZolam 0.5 mg Tablet PO ×2 (09:15→21:04)
[2021-05-05] MEDS: zinc gluconate 50 mg Tablet PO (09:15)
[2021-05-05] MEDS: budesonide 0.5 mg/2 mL Neb INHALATION ×2 (09:50→21:50)
[2021-05-05] MEDS: acetaminophen 325 mg Tablet 650 MG PO (11:23)
--- NOTE | 2021-05-05 11:23 | PC.NURSE ---
Pt yelling for help from the room. Upon entering room she states her ear is ringing and she want to go back to bed. Reminded and encouraged pt to use call light for needs as it can be heard better than her calling from a room with a closed door. Pt starts panting and moaning. Encouraged pt to relax as it improves her breathing status. Discussed with pt sitting up in chair improves her breathing and increases the oxygenation. Pt verbalized understanding but wanted to go back to bed anyhow. Pt assisted back to bed. O2 sats at 90%
[2021-05-05] MEDS: azithromycin 500 MG in sodium chloride 0.9% 250 ML 250 MG IV (11:24)
--- NOTE | 2021-05-05 11:43 | PC.NURSE ---
[place] son called, updated on pt's condition. Pt up to chair this am , she did not want to sit up anyl onger even though it would help her. Chest xrays showed increased opacities. HHF at 55 liters and 75% She eats small amounts at every meal. He stated he would like her to be on IV Vitamin C, informed him that treatment was not indicated as she could swallow tablets. He wants his mother to get higher dose of Vitamin C and have chest physiotherapy. Will notify physician of family's demand.
--- NOTE | 2021-05-05 11:58 | PC.NURSE ---
O2 sats at 98% when pt resting and calm.
--- NOTE | 2021-05-05 12:15 | PC.NURSE ---
Dr Koch spoke with pt. Pt willing to get out of bed to chair at this time. Standby by assist.
--- NOTE | 2021-05-05 12:49 | PM.PN ---
Subjective Subjective: Interval history: on precedex Medications: Reviewed: Yes Vitals/I&O/Wt Last Vital Signs Temp 97.8 F 05/05/21 17:00 Pulse 89 05/05/21 23:00 Resp 30 H 05/05/21 23:00 BP 104/65 05/05/21 23:00 Pulse Ox 94 05/05/21 23:00 05/05/21 05/05/21 05/06/21 14:59 22:59 06:59 Intake Total 1200 / 1200 104 / 1304 Output Total 1200 / 1200 Balance 0 / 0 104 / 104 Physical Exam Narrative: EXAM NARRATIVE: General-alert awake and oriented on high-flow nasal cannula HEENT- grossly unremarkable CVS- normal sinus rhythm Chest-nonlabored respiration Abdomen -nondistended Extremities -no edema Urinary Catheter Management^: Torres: Cath Placed During This Visit: yes Reason for Continuing Indwelling Catheter: Accurate Measurement of Urinary Output in Critically Ill Patients Urinary Catheter Date of Insertion: 05/03/21 Urinary Catheter Time of Insertion: 10:45 Data : 05/04/21 04:30 05/04/21 05:35 A&P Assessment and plan (1) Acute hypoxemic respiratory failure due to COVID-19: Wean precedex wean hfnc Plan for today, continue antibiotics continue Decadron continue remdesivir, aggressive pulmonary toilet Status: Acute (2) Pneumonia due to COVID-19 virus: Status: Acute (3) Transaminitis: Repeat CMP in a.m AST- 169 - 54 ALT- 177- 124 Improving Status: Acute Additional A&P Information DVT prophylaxis Lovenox 40 mg subcu daily Attestations Medical Necessity Statement*: Will require further hospizationf or managment of covid 19 penumonia Time Spent in Patient Care: Greater than 35 minutes (>than 50% of time spent in counselling and/or direct pt care on unit). Coding Level of Care Code Acute Motorcycle Police Officer for Laurie [facility] Diagnoses Acute hypoxemic respiratory failure due to COVID-19 U07.1; J96.01 Pneumonia due to COVID-19 virus U07.1; J12.82 Transaminitis R74.01
[2021-05-05] MEDS: FUROsemide 10 mg/mL SDV 4mL 40 MG IVP (14:07)
[2021-05-05] MEDS: cefTRIAXone 1,000 MG in sodium chloride 0.9% (plus) 50 ML 100 MG IV (14:07)
--- NOTE | 2021-05-05 14:42 | PC.RESP ---
RT Shift Note Frequent safety and respiratory rounds continue. Orders completed as indicated. Patient monitored pre and post treatments throughout shift. Patient [Did.] tolerate treatments appropriately. Condition [.DidNotChange]. Patient and/or signs and displays sales representative educated on respiratory treatment and medications. Patient and/or signs and displays sales representative [verbalized understanding]. Will continue to monitor patient progress.
--- NOTE | 2021-05-05 18:05 | PC.NURSE ---
Pt stated her ear is still ringing and she wants to go back to bed. She requested sleeping aid, informed her sleeping aids were administered at around 9 pm not 6 pm.. Assisted pt back to bed, standby by assist. Helped pt to laterally lie on left side to relived her ear. She sated it helped.
[2021-05-05] MEDS: dexamethasone 10 mg/mL INJ 6 MG IVP (18:06)
--- NOTE | 2021-05-05 19:06 | PC.NURSE ---
Shift summary: Pt's breathing has improved today. She remains on heated high flow at 55 liters and 65%. She has sat up in the chair for the majority of this shift, mario. after a pep talk from Dr Koch. Prior to conversation she had been reluctant to move much. She has been c/o of ringing in her left ear most of this shift. Ringing started earlier this am , several hours prior to furosemide administration. She has needed PRN Xana once and Tylenol once this shift. Urine output of 2150ml. Frequent safety and comfort rounds continue. Orders and/or nursing care completed as indicated. Patient monitored for response to intervention and treatment(s). Education provided includes moving, sitting up in chair activity. Patient and/or home furnishings sales representative [Verbalized understanding but resistant. . Will continue to monitor.
--- NOTE | 2021-05-05 20:42 | P.CONIM_ITS ---
Providers/Reason For Consult Attending Physician: Kelly Davidson History of Present Illness History of Present Illness Lakisha Esqueda is a 45 year old female Meds/Allergies Home Medications and Allergies Home Medications Medication Instructions Recorded Confirmed Last Taken Type albuterol sulfate 2 puff INHALATION QID PRN 04/29/21 04/29/21 04/29/21 17:00 History azithromycin 250 mg PO BEDTIME 04/29/21 04/29/21 04/28/21 21:00 History prednisone 40 mg PO DAILY 04/29/21 04/29/21 04/29/21 08:00 History Allergies Allergy/AdvReac Type Severity Reaction Status Date / Time No Known Allergies Allergy Verified 04/29/21 23:31 Current Medications Current Medications Generic Name Dose Route Start Last Admin Trade Name Freq PRN Reason Stop Dose Admin Acetaminophen 650 mg 04/30/21 03:18 05/05/21 11:23 Acetaminophen 325 Mg Tablet PO 650 mg Q6H PRN Administration Mild/Mod Pain Or Temp >/= 101 Albuterol Sulfate 2.5 mg 04/30/21 03:00 05/05/21 14:39 Albuterol 2.5 Mg/0.5 Ml Neb INHALATION 2.5 mg Q6H.RESPIRATORY STEPHIE Administration Alprazolam 0.5 mg 05/02/21 15:32 05/05/21 09:15 Alprazolam 0.5 Mg Tablet PO 0.5 mg TID PRN Administration anxiety Ascorbic Acid 500 mg 04/30/21 09:00 05/05/21 18:06 Ascorbic Acid 500 Mg Tablet PO 500 mg BID STEPHIE Administration Budesonide 0.5 mg 04/30/21 12:00 05/05/21 09:50 Budesonide 0.5 Mg/2 Ml Neb INHALATION 0.5 mg BID.RESPIRATORY STEPHIE Administration Dexamethasone 6 mg 04/30/21 05:15 05/05/21 18:06 Dexamethasone 10 Mg/Ml Inj IVP 6 mg Q24H STEPHIE Administration Heparin Sodium (Beef Lung) 5,000 unit 04/30/21 06:00 05/05/21 14:07 Heparin 5,000 Unit/Ml Inj 1 Ml SUBCUT 5,000 unit Q8H STEPHIE Administration Ceftriaxone Sodium 1,000 mg/ 50 mls @ 100 mls/hr 04/30/21 11:00 05/05/21 14:07 Sodium Chloride IV 100 mls/hr Q24H STEPHIE Administration Protocol Azithromycin 500 mg/ Sodium 250 mls @ 250 mls/hr 04/30/21 10:00 05/05/21 11:24 Chloride IV 250 mls/hr Q24H STEPHIE Administration Protocol Dexmedetomidine HCl 400 mcg/ 104 mls @ 0 mls/hr 05/03/21 23:45 05/05/21 06:47 Sodium Chloride IV 0.3 mcg/kg/hr .Q0M STEPHIE 7.29 mls/hr Administration Protocol Per Protocol Pantoprazole Sodium 40 mg 04/30/21 03:30 05/05/21 06:14 Pantoprazole 40 Mg Sdv IVP 40 mg Q24H STEPHIE Administration Vitamin D 1,000 unit 04/30/21 09:00 05/05/21 09:15 Cholecalciferol (Vitamin D3) 1,000 Unit Tablet PO 1,000 unit DAILY STEPHIE Administration Zinc Gluconate 50 mg 04/30/21 09:00 05/05/21 09:15 Zinc Gluconate 50 Mg Tablet PO 50 mg DAILY STEPHIE Administration PFSH Acute PFSH: Medical History Morbid obesity No pertinent family history Surgical History No pertinent past surgical history Social History Smoking and tobacco status: never smoked Alcohol intake: never Substance/Drug Use: never Vitals/I&O/Wt Last Vital Signs Temp 97.8 F 05/05/21 17:00 Pulse 76 05/05/21 19:00 Resp 25 H 05/05/21 18:27 BP 118/77 05/05/21 20:00 Pulse Ox 86 L 05/05/21 20:00 05/05/21 05/05/21 05/05/21 06:59 14:59 22:59 Intake Total 486.265 / 2357.072 1200 / 1200 Output Total 1200 / 1200 1200 / 1200 Balance -713.735 / 1157.072 0 / 0 Physical Exam Urinary Catheter Management^: Torres: Cath Placed During This Visit: yes Reason for Continuing Indwelling Catheter: Accurate Measurement of Urinary Output in Critically Ill Patients Urinary Catheter Date of Insertion: 05/03/21 Urinary Catheter Time of Insertion: 10:45 Coding Level of Care Code Acute Range Ecologist for Laurie Gallagher
--- NOTE | 2021-05-05 23:46 | PM.PN ---
Subjective Subjective: Interval history: -Patient seen multiple times at bedside today -Encouraged her to sit out of bed to chair -Still anxious but appeared comfortable sitting out of bed to chair and --FiO2 came down to 65% -Labs and imaging reviewed Medications: Reviewed: Yes Vitals/I&O/Wt Last Vital Signs Temp 97.8 F 05/05/21 17:00 Pulse 89 05/05/21 23:00 Resp 30 H 05/05/21 23:00 BP 104/65 05/05/21 23:00 Pulse Ox 94 05/05/21 23:00 05/05/21 05/05/21 05/06/21 14:59 22:59 06:59 Intake Total 1200 / 1200 104 / 1304 Output Total 1200 / 1200 Balance 0 / 0 104 / 104 Physical Exam Narrative: EXAM NARRATIVE: General: alert, in moderate respiratory distress HEENT: conj clear, EOMI, PERRL, mmm, Neck: supple, no meningismus Heme: no cervical LAP Pulmonary: Bilateral diffuse crepitations Cardiovascular: rrr, nl s1s2, no mrg Abdomen: soft, nt, nd, no r/g, bs+ Extremities: pulses +, no edema, no c/c : no CVA tenderness Skin: intact, no rash MSK: no back or neck pain Neurologic: grossly intact Urinary Catheter Management^: Torres: Cath Placed During This Visit: yes Reason for Continuing Indwelling Catheter: Accurate Measurement of Urinary Output in Critically Ill Patients Urinary Catheter Date of Insertion: 05/03/21 Urinary Catheter Time of Insertion: 10:45 Data : 05/04/21 04:30 05/04/21 05:35 Other Labs: Laboratory Results WBC 12.3 10^3/uL (4.0-10.0) H 05/04/21 04:30 RBC 4.83 10^6/uL (4.1-5.3) 05/04/21 04:30 Hgb 14.0 g/dL (11.5-15.3) 05/04/21 04:30 Hct 42.6 % (37.0-47.0) 05/04/21 04:30 MCV 88.2 fL (81-99) 05/04/21 04:30 MCH 29.0 pg (28.0-34.0) 05/04/21 04:30 MCHC 32.9 g/dL (30.0-36.0) 05/04/21 04:30 RDW 12.9 % (12.1-15.1) 05/04/21 04:30 Plt Count 521 10^3/cmm (130-400) H 05/04/21 04:30 MPV 9.6 fL (7.4-10.4) 05/04/21 04:30 Neut % (Auto) 84.3 % 05/04/21 04:30 Lymph % (Auto) 6.6 % 05/04/21 04:30 [place] % (Auto) 2.9 % 05/04/21 04:30 Eos % (Auto) 1.7 % 05/04/21 04:30 Baso % (Auto) 0.4 % 05/04/21 04:30 Neut # (Auto) 10.33 10^3/uL (1.8-7.7) H 05/04/21 04:30 Lymph # (Auto) 0.8 10^3/uL (0.8-4.8) 05/04/21 04:30 [place] # (Auto) 0.4 10^3/uL (0.2-0.9) 05/04/21 04:30 Eos # (Auto) 0.2 10^3/uL (0.0-0.8) 05/04/21 04:30 Baso # (Auto) 0.1 10^3/uL (0.0-0.1) 05/04/21 04:30 Nucleated RBC % (auto) 0 % 05/04/21 04:30 Nucleated RBCs # 0.0 /100WBC 05/04/21 04:30 PT 13.30 SECONDS (12.1-14.9) 05/03/21 06:27 INR 0.98 (0.8-1.2) 05/03/21 06:27 D-Dimer 2.43 ug/mIFEU (0-0.59) H 04/29/21 18:27 Specimen Type Arterial 05/03/21 04:50 Sample Site Radial, right 05/03/21 04:50 ABG pH 7.44 (7.35-7.45) 05/03/21 04:50 ABG pCO2 42.7 mmHg (35-45) 05/03/21 04:50 ABG pO2 71.6 mmHg (80.0-100.0) L 05/03/21 04:50 ABG HCO3 28.8 mmol/L (22-26) H 05/03/21 04:50 ABG Base Excess 4.0 mmol/L (-2.0-2.0) H 05/03/21 04:50 Akhil Test Pos 05/03/21 04:50 Hematocrit 44.8 % (37-47) 05/03/21 04:50 O2 Delivery Device Bipap 05/03/21 04:50 O2 Liters/Min 50.0 % 05/01/21 04:20 FiO2 70.0 % 05/03/21 04:50 Gravity Prospecting Operator Helper ID yorna 05/03/21 04:50 Sodium 134 mmol/L (136-145) L 05/04/21 05:35 Potassium 5.1 mmol/L (3.5-5.1) 05/04/21 05:35 Chloride 100 mmol/L (98-107) 05/04/21 05:35 Carbon Dioxide 23 mmol/L (22-29) 05/04/21 05:35 Anion Gap 16.1 (5-19) 05/04/21 05:35 BUN 14 mg/dL (6-20) 05/04/21 05:35 Creatinine 0.5 mg/dL (0.5-0.9) 05/04/21 05:35 GFR Calculation 134.7 mL/min (90-130) H 05/04/21 05:35 Glucose 123 mg/dL (65-115) H 05/04/21 05:35 Calculated Osmolality 280 mOsm/kg (285-295) L 05/04/21 05:35 Lactic Acid 1.9 mmol/L (0.5-2.2) 04/29/21 18:27 Lactate 2.1 mmol/L (0.5-2.2) 05/03/21 06:27 Calcium 8.5 mg/dL (8.5-10.5) 05/04/21 05:35 Phosphorus 3.7 mg/dL (2.5-4.5) 05/03/21 06:27 Magnesium 2.6 mg/dL (1.7-2.3) H 05/03/21 06:27 Ferritin 1386 ng/mL (15-150) H 05/03/21 06:27 Total Bilirubin 0.5 mg/dL (0.15-1.2) 05/04/21 05:35 AST 57 U/L (0-32) H 05/04/21 05:35 ALT 111 U/L (0-33) H 05/04/21 05:35 Alkaline Phosphatase 87 IU/L (35-105) 05/04/21 05:35 Creatine Kinase 46 U/L (26-192) 05/03/21 06:27 C-Reactive Protein 6.8 mg/L (0.0-4.9) H 05/03/21 06:27 NT-Pro-B Natriuret Pep 64 pg/mL (0-125) 05/03/21 06:27 Total Protein 6.0 g/dL (6.6-8.7) L 05/04/21 05:35 Albumin 3.3 g/dL (3.5-5.2) L 05/04/21 05:35 Globulin 2.7 g/dL (1.3-4.6) 05/04/21 05:35 Procalcitonin 0.07 ng/mL (0-0.5) 05/01/21 04:02 Impressions Chest CTA 04/29/21 19:13 IMPRESSION: 1. No visible evidence of pulmonary embolism/pulmonary arterial thrombus. 2. Bilateral, predominantly peripheral, patches of ground-glass interstitial lung disease opacification with patches of crazy paving and early consolidated alveolar airspace disease consistent with active pneumonitis/pneumonia. Overall constellation of findings would be consistent with Covid-19 pneumonitis/pneumonia. 3. Potential 13 mm nodule at the thyroid isthmus. Not well imaged due to quantum mottle artifact. No follow-up is recommended. COMMENTS: Consistent with the [employer]'s Incidental Findings Committee white paper (J Am Rosamaria Radiol 2015): In patients aged 35 years and older with an incidental thyroid nodule equal to or greater than 1.[address], MRI or extrathyroidal US, further evaluation with dedicated thyroid US is recommended for patients with normal life expectancy and without comorbidities. For smaller nodules without suspicious features, no further evaluation or follow up is recommended. Radiation Dose CTDIVOL = (mGy): DLP = 584.78 (mGy-cm) Chest X-Ray 05/05/21 04:00 Impression: Increased bilateral pulmonary opacities consistent with pneumonia. A&P Assessment and plan (1) Acute respiratory distress syndrome (ARDS) due to 2019 novel coronavirus: Status: Acute (2) Acute hypoxemic respiratory failure due to COVID-19: Status: Acute (3) Transaminitis: Status: Acute Today HFNC 55 L 65%-low threshold for intubation Completed 5-day course of remdesivir Decadron 6 mg daily started on 04/30/2021 for total of [address] angiogram no radiographic evidence of pulmonary emboli First dose Actemra 04/30/2021 Albuterol, budesonide Rocephin and azithromycin for prophylaxis for secondary bacterial pneumonia completed today Incentive spirometer, flutter valve Pulmonary toilet, prone positioning On Xanax 0.5 mg p.o. 3 times daily as needed for anxiety, also on Precedex drip for anxiety lasix 40 mg once dose today Monitor LFTs Full code Prognosis guarded Regular diet Heparin subcu for dVT prophylaxis Recommendations conveyed to hospitalist, RN, RT taking care of the patient Attestations Medical Necessity Statement*: Acute hypoxic respiratory failure secondary to ARDS due to COVID-19 pneumonia requiring high flow nasal cannula-close monitoring for impending respiratory failure Time Spent in Patient Care: Greater than 35 minutes (>than 50% of time spent in counselling and/or direct pt care on unit). Critical Care Time: The high probability of a clinically significant, sudden or life threatening deterioration of the patient's respiratory, renal, hepatic, neurological] system(s) required my full and direct attention, intervention and personal management. The critical care time is as shown. This time is in addition to time spent performing any reported procedures but includes the following: [x] Data and vital sign review and interpretation [x] Patient assessment, examination and intervention [x] Documentation [x] Medication orders and management Critical Care Time (min): 45 Coding Level of Care Code Acute Fire Extinguisher Repairer for laith Fwd Diagnoses Acute respiratory distress syndrome (ARDS) due to 2019 novel coronavirus U07.1; J80 Acute hypoxemic respiratory failure due to COVID-19 U07.1; J96.01 Transaminitis R74.01
[2021-05-06] VITALS (34 sets, daily range): BP systolic 82–117; BP diastolic 49–80; PULSE 62–103; RESP 18–41; TEMP 36.5–36.6; O2SAT 85–98
[2021-05-06 05:09] LABS: ABG PCO2 40.6 mmHg (35-45); ABG PH Result 7.45 (7.35-7.45); Alveolar-Arterial Oxygen Gradi 45.5 mmHg (5-10); Arterial Blood Gas Hematocrit 46.9 % (37-47); Base Excess ABG 3.7 mmol/L (-2.0-2.0); Blood Gas Allen Test Pos; Blood Gas Operator Identificat HARKR; Blood Gas Sample Site Radial, right; Blood Gas Sample Type Arterial; Carboxyhemoglobin 0.6 %THgb (0.4-20.1); HCO3 ABG 28.1 mmol/L (22-26); HGB O2 Sat 92.3 % (95-100); Ionized Calcium Level - ABG 1.2 mmol/L (1.1-1.4); Methemoglobin 0.3 % (0.4-1.5); Oxygen Device HAG; Oxygen Saturation ABG 93.1; PO2 ABG 65.2 mmHg (80.0-100.0); Potassium Level - ABG 4.5 mmol/L (3.5-5.0); Total Hemoglobin 15.3 g/dL (12-16)
[2021-05-06] MEDS: heparin 5,000 unit/mL INJ 1 mL 5000 UNIT SUBCUT ×3 (06:08→21:10)
[2021-05-06] MEDS: ALPRAZolam 0.5 mg Tablet PO ×2 (06:08→21:10)
[2021-05-06] MEDS: pantoprazole 40 mg SDV IVP (06:08)
--- NOTE | 2021-05-06 06:13 | PC.NURSE ---
Shift Note Frequent safety and comfort rounds continue. Orders and/or nursing care completed as indicated. Patient monitored for response to intervention and treatment(s). Education provided includes Oxygen safety, IV pump, SCD's, sitting up with meals and activities.. Patient and/or medicare sales representative voiced understanding. Will continue to monitor.
[2021-05-06 06:40] LABS: Basophils # 0.2 10^3/uL (0.0-0.1); Basophils % 0.8 %; Eosinophils # 0.1 10^3/uL (0.0-0.8); Eosinophils % 0.6 %; Hematocrit 45.7 % (37.0-47.0); Hemoglobin 15.1 g/dL (11.5-15.3); Lymphocytes # 1.5 10^3/uL (0.8-4.8); Lymphocytes % 8.2 %; Mean Corpuscular Volume 87.9 fl (81-99); Mean Platelet Volume 9.6 fL (7.4-10.4); Monocytes % 5.6 %; Neutrophils # 14.59 10^3/uL (1.8-7.7); Nucleated Red Blood Cells % 0 %; Platelet Count 470 10^3/cmm (130-400); Red Cell Distribution Width 12.9 % (12.1-15.1); White Blood Count 18.7 10^3/uL (4.0-10.0)
[2021-05-06 07:04] LABS: Alanine Aminotransferase 85 U/L (0-33); Albumin Level 3.5 g/dL (3.5-5.2); Alkaline Phosphatase 87 IU/L (35-105); Anion Gap 13.8 (5-19); Aspartate Amino Transferase 34 U/L (0-32); Blood Urea Nitrogen 15 mg/dL (6-20); Calcium 8.8 mg/dL (8.5-10.5); Carbon Dioxide 26 mmol/L (22-29); Chloride 99 mmol/L (98-107); Globulin 2.8 g/dL (1.3-4.6); Glomerular Filtration Rate 134.7 mL/min (90-130); Glucose 119 mg/dL (65-115); Magnesium 2.8 mg/dL (1.7-2.3); Osmolality Calculated 280 mOsm/kg (285-295); Potassium 4.8 mmol/L (3.5-5.1); Sodium 134 mmol/L (136-145); Total Bilirubin 0.6 mg/dL (0.15-1.2); Total Protein 6.3 g/dL (6.6-8.7)
--- NOTE | 2021-05-06 07:50 | PC.NURSE ---
Pt assisted out of bed to hair at bedside. O2 sats were at 85% during transfer. After she sait down she panicked ad her O2 sats dropped further. Pt encouraged to relax and deep breath. 15 minutes for sats to reach 88%. Pt encouraged to use IS and acapello every hour while awake, imagery and deep breathing to help calm herself and increased her oxygenation. Pt verbalized understanding.
[2021-05-06] MEDS: budesonide 0.5 mg/2 mL Neb INHALATION ×2 (09:10→21:47)
[2021-05-06] MEDS: cholecalciferol (vitamin D3) 1,000 unit Tablet 1000 UNIT PO (09:32)
[2021-05-06] MEDS: ascorbic acid 500 mg Tablet PO ×2 (09:32→18:27)
[2021-05-06] MEDS: zinc gluconate 50 mg Tablet PO (09:32)
[2021-05-06] MEDS: azithromycin 500 MG in sodium chloride 0.9% 250 ML 250 MG IV (09:37)
[2021-05-06 10:17] LABS: Neutrophils % 84.8 %; Slide Review Slide Review Perform
[2021-05-06] MEDS: cefTRIAXone 1,000 MG in sodium chloride 0.9% (plus) 50 ML 100 MG IV (13:42)
[2021-05-06] MEDS: dexmedetomidine 400 MCG in sodium chloride 0.9% (100 ml) 100 ML 7.29 MCG IV (13:42)
--- NOTE | 2021-05-06 14:08 | PC.NURSE ---
Pt stated she was tired and ready to go back to bed. Standby assistance. O2 sats 92%. Noted HHF settings have been decreased again 45 liters and 55%. IV tubing changed. Pt encouraged to use IS and acapello every hour while awake.
--- NOTE | 2021-05-06 14:54 | P.PN_ITS ---
Subjective Subjective: Interval history: Patient remained on Precedex overnight.Continue to require high FiO2. No fever or chills. No nausea vomiting. Medications: Reviewed: Yes Vitals/I&O/Wt Last Vital Signs Temp 97.8 F 05/05/21 17:00 Pulse 89 05/06/21 12:05 Resp 20 H 05/06/21 12:05 BP 114/73 05/06/21 06:00 Pulse Ox 94 05/06/21 12:05 05/05/21 05/06/21 05/06/21 22:59 06:59 14:59 Intake Total 154 / 1604 354 / 354 Output Total 1900 / 3100 Balance 154 / 404 -1900 / -1496 354 / 354 Weight last 48 hrs Weight 92.261 kg Physical Exam Narrative: EXAM NARRATIVE: General-alert awake and oriented on high-flow nasal cannula HEENT- grossly unremarkable CVS- normal sinus rhythm Chest-nonlabored respiration Abdomen -nondistended Extremities -no edema Urinary Catheter Management^: Torres: Cath Placed During This Visit: yes Reason for Continuing Indwelling Catheter: Accurate Measurement of Urinary Output in Critically Ill Patients Urinary Catheter Date of Insertion: 05/03/21 Urinary Catheter Time of Insertion: 10:45 Data : 05/06/21 05:55 05/06/21 05:55 A&P Assessment and plan (1) Acute hypoxemic respiratory failure due to COVID-19: No change to management Continue high-flow nasal cannula Wean O2 as tolerated Continue to wean Precedex as tolerated Completed Remdesivir Completed 5 days of azithromycin Continue ceftriaxone 1 g IV daily Plan for today, continue antibiotics continue Decadron continue remdesivir, aggressive pulmonary toilet Status: Acute (2) Pneumonia due to COVID-19 virus: Status: Acute (3) Transaminitis: Continue to trend CMP Status: Acute Additional A&P Information DVT prophylaxis Lovenox 40 mg subcu daily Attestations Medical Necessity Statement*: Require furtherHospitalization for management of COVID-19 related respiratory failure Time Spent in Patient Care: Greater than 35 minutes (>than 50% of time spent in counselling and/or direct pt care on unit) . Coding Level of Care Code Acute Home Health Attendant for laith Gallagher Diagnoses Acute hypoxemic respiratory failure due to COVID-19 U07.1; J96.01 Pneumonia due to COVID-19 virus U07.1; J12.82 Transaminitis R74.01
--- NOTE | 2021-05-06 16:18 | PC.NURSE ---
IS use by pt noted. Self directed.
[2021-05-06] MEDS: dexamethasone 10 mg/mL INJ 6 MG IVP (18:27)
--- NOTE | 2021-05-06 19:25 | PC.NURSE ---
Shift summary: Pt's oxygenation has improved this shift she is now on heated high flow at 45 liters and 55%. Her voice is stronger when she speaks. She is actively participating in her recovery at this time. by using IS and acapello.. SHe does need encouragement, she gets anxious. She has tolerated Precedex decreased to 0.2 today. She has been up to chair to times this shift. Nahun, her son, called for an update, he stated the family has been encouraging her to follow staff suggestions about moving, IS etc. Shift Note Frequent safety and comfort rounds continue. Orders and/or nursing care completed as indicated. Patient monitored for response to intervention and treatment(s). Education provided includes improved oxygenation while sitting up in chair, relaxation techniques, Acute rehab ( [facility]) Patient and/or off premise service representative verbalized understanding to plan of care. Will continue to monitor.
--- NOTE | 2021-05-06 23:49 | PM.PN ---
Subjective Subjective: Interval history: - pt seen multiple times at bedside today - sitting out of bed to chair comfortably - still has some anxiety - on precedex drip - saturating 94% on HFNC 55L 65% - Labs and imaging reviewed Medications: Reviewed: Yes Vitals/I&O/Wt Last Vital Signs Temp 97.8 F 05/06/21 14:00 Pulse 85 05/06/21 22:00 Resp 25 H 05/06/21 22:00 BP 97/63 05/06/21 22:00 Pulse Ox 92 05/06/21 22:00 05/06/21 05/06/21 05/07/21 14:59 22:59 06:59 Intake Total 1594 / 1594 92.768 / 1686.768 Balance 1594 / 1594 92.768 / 1686.768 Weight last 48 hrs Weight 203 lb 6.4 oz Physical Exam Narrative: EXAM NARRATIVE: General: alert, in moderate respiratory distress HEENT: conj clear, EOMI, PERRL, mmm, Neck: supple, no meningismus Heme: no cervical LAP Pulmonary: Bilateral diffuse crackles Cardiovascular: rrr, nl s1s2, no mrg Abdomen: soft, nt, nd, no r/g, bs+ Extremities: pulses +, no edema, no c/c : no CVA tenderness Skin: intact, no rash MSK: no back or neck pain Neurologic: grossly intact Urinary Catheter Management^: Torres: Cath Placed During This Visit: yes Reason for Continuing Indwelling Catheter: Accurate Measurement of Urinary Output in Critically Ill Patients Urinary Catheter Date of Insertion: 05/03/21 Urinary Catheter Time of Insertion: 10:45 Data : 05/06/21 05:55 05/06/21 05:55 Other Labs: Laboratory Results WBC 18.7 10^3/uL (4.0-10.0) H 05/06/21 05:55 RBC 5.20 10^6/uL (4.1-5.3) 05/06/21 05:55 Hgb 15.1 g/dL (11.5-15.3) 05/06/21 05:55 Hct 45.7 % (37.0-47.0) 05/06/21 05:55 MCV 87.9 fl (81-99) 05/06/21 05:55 MCH 29.0 pg (28.0-34.0) 05/06/21 05:55 MCHC 33.0 g/dL (30.0-36.0) 05/06/21 05:55 RDW 12.9 % (12.1-15.1) 05/06/21 05:55 Plt Count 470 10^3/cmm (130-400) H 05/06/21 05:55 MPV 9.6 fL (7.4-10.4) 05/06/21 05:55 Neut % (Auto) 84.8 % 05/06/21 05:55 Lymph % (Auto) 8.2 % 05/06/21 05:55 [place] % (Auto) 5.6 % 05/06/21 05:55 Eos % (Auto) 0.6 % 05/06/21 05:55 Baso % (Auto) 0.8 % 05/06/21 05:55 Neut # (Auto) 14.59 10^3/uL (1.8-7.7) H 05/06/21 05:55 Lymph # (Auto) 1.5 10^3/uL (0.8-4.8) 05/06/21 05:55 [place] # (Auto) 1.0 10^3/uL (0.2-0.9) H 05/06/21 05:55 Eos # (Auto) 0.1 10^3/uL (0.0-0.8) 05/06/21 05:55 Baso # (Auto) 0.2 10^3/uL (0.0-0.1) H 05/06/21 05:55 Nucleated RBC % (auto) 0 % 05/06/21 05:55 Nucleated RBCs # 0.0 /100WBC 05/06/21 05:55 PT 13.30 SECONDS (12.1-14.9) 05/03/21 06:27 INR 0.98 (0.8-1.2) 05/03/21 06:27 D-Dimer 2.43 ug/mIFEU (0-0.59) H 04/29/21 18:27 Specimen Type Arterial 05/06/21 04:55 Sample Site Radial, right 05/06/21 04:55 ABG pH 7.45 (7.35-7.45) 05/06/21 04:55 ABG pCO2 40.6 mmHg (35-45) 05/06/21 04:55 ABG pO2 65.2 mmHg (80.0-100.0) L 05/06/21 04:55 ABG HCO3 28.1 mmol/L (22-26) H 05/06/21 04:55 ABG O2 Saturation 93.1 05/06/21 04:55 ABG Base Excess 3.7 mmol/L (-2.0-2.0) H 05/06/21 04:55 Akhil Test Pos 05/06/21 04:55 A-a O2 Gradient 45.5 mmHg (5-10) H 05/06/21 04:55 Hematocrit 46.9 % (37-47) 05/06/21 04:55 Hgb O2 Saturation 92.3 % (95-100) L 05/06/21 04:55 Carboxyhemoglobin 0.6 %THgb (0.4-20.1) 05/06/21 04:55 Methemoglobin 0.3 % (0.4-1.5) L 05/06/21 04:55 Total Hemoglobin 15.3 g/dL (12-16) 05/06/21 04:55 Sodium 138.0 mmol/L (131-143) 05/06/21 04:55 Potassium 4.5 mmol/L (3.5-5.0) 05/06/21 04:55 Glucose 132.0 mg/dL (70-115) H 05/06/21 04:55 Ionized Calcium 1.2 mmol/L (1.1-1.4) 05/06/21 04:55 O2 Delivery Device Hag 05/06/21 04:55 O2 Liters/Min 55.0 % 05/06/21 04:55 FiO2 65.0 % 05/06/21 04:55 Seafood And Service Meat Manager ID Harkr 05/06/21 04:55 Sodium 134 mmol/L (136-145) L 05/06/21 05:55 Potassium 4.8 mmol/L (3.5-5.1) 05/06/21 05:55 Chloride 99 mmol/L (98-107) 05/06/21 05:55 Carbon Dioxide 26 mmol/L (22-29) 05/06/21 05:55 Anion Gap 13.8 (5-19) 05/06/21 05:55 BUN 15 mg/dL (6-20) 05/06/21 05:55 Creatinine 0.5 mg/dL (0.5-0.9) 05/06/21 05:55 GFR Calculation 134.7 mL/min (90-130) H 05/06/21 05:55 Glucose 119 mg/dL (65-115) H 05/06/21 05:55 Calculated Osmolality 280 mOsm/kg (285-295) L 05/06/21 05:55 Lactic Acid 1.9 mmol/L (0.5-2.2) 04/29/21 18:27 Lactate 2.1 mmol/L (0.5-2.2) 05/03/21 06:27 Calcium 8.8 mg/dL (8.5-10.5) 05/06/21 05:55 Phosphorus 3.7 mg/dL (2.5-4.5) 05/03/21 06:27 Magnesium 2.8 mg/dL (1.7-2.3) H 05/06/21 05:55 Ferritin 1386 ng/mL (15-150) H 05/03/21 06:27 Total Bilirubin 0.6 mg/dL (0.15-1.2) 05/06/21 05:55 AST 34 U/L (0-32) H 05/06/21 05:55 ALT 85 U/L (0-33) H 05/06/21 05:55 Alkaline Phosphatase 87 IU/L (35-105) 05/06/21 05:55 Creatine Kinase 46 U/L (26-192) 05/03/21 06:27 C-Reactive Protein 6.8 mg/L (0.0-4.9) H 05/03/21 06:27 NT-Pro-B Natriuret Pep 64 pg/mL (0-125) 05/03/21 06:27 Total Protein 6.3 g/dL (6.6-8.7) L 05/06/21 05:55 Albumin 3.5 g/dL (3.5-5.2) 05/06/21 05:55 Globulin 2.8 g/dL (1.3-4.6) 05/06/21 05:55 Procalcitonin 0.07 ng/mL (0-0.5) 05/01/21 04:02 Impressions Chest CTA 04/29/21 19:13 IMPRESSION: 1. No visible evidence of pulmonary embolism/pulmonary arterial thrombus. 2. Bilateral, predominantly peripheral, patches of ground-glass interstitial lung disease opacification with patches of crazy paving and early consolidated alveolar airspace disease consistent with active pneumonitis/pneumonia. Overall constellation of findings would be consistent with Covid-19 pneumonitis/pneumonia. 3. Potential 13 mm nodule at the thyroid isthmus. Not well imaged due to quantum mottle artifact. No follow-up is recommended. COMMENTS: Consistent with the [place] [employer]'s Incidental Findings Committee white paper (J Am Orsamaria Radiol 2015): In patients aged 35 years and older with an incidental thyroid nodule equal to or greater than 1.[address], MRI or extrathyroidal US, further evaluation with dedicated thyroid US is recommended for patients with normal life expectancy and without comorbidities. For smaller nodules without suspicious features, no further evaluation or follow up is recommended. Radiation Dose CTDIVOL = (mGy): DLP = 584.78 (mGy-cm) Chest X-Ray 05/05/21 04:00 Impression: Increased bilateral pulmonary opacities consistent with pneumonia. A&P Assessment and plan (1) Acute respiratory distress syndrome (ARDS) due to 2019 novel coronavirus: Status: Acute (2) Acute hypoxemic respiratory failure due to COVID-19: Status: Acute (3) Transaminitis: Status: Acute Today HFNC 55 L 65%-saturating 94% - plan is to titrate FIO2 Completed 5-day course of remdesivir Decadron 6 mg daily started on 04/30/2021 for total of [address] angiogram no radiographic evidence of pulmonary emboli First dose Actemra 04/30/2021 Albuterol, budesonide Rocephin and azithromycin for prophylaxis for secondary bacterial pneumonia completed today Incentive spirometer, flutter valve Pulmonary toilet, prone positioning On Xanax 0.5 mg p.o. 3 times daily as needed for anxiety, also on Precedex drip for anxiety lasix 40 mg once dose today Monitor LFTs Full code Prognosis guarded Regular diet Heparin subcu for dVT prophylaxis Recommendations conveyed to hospitalist, RN, RT taking care of the patient Attestations Medical Necessity Statement*: Acute hypoxic respiratory failure secondary to ARDS due to COVID-19 pneumonia requiring high flow nasal cannula-close monitoring for impending respiratory failure Time Spent in Patient Care: Greater than 35 minutes (>than 50% of time spent in counselling and/or direct pt care on unit). Critical Care Time: The high probability of a clinically significant, sudden or life threatening deterioration of the patient's respiratory, renal, hepatic, neurological] system(s) required my full and direct attention, intervention and personal management. The critical care time is as shown. This time is in addition to time spent performing any reported procedures but includes the following: [x] Data and vital sign review and interpretation [x] Patient assessment, examination and intervention [x] Documentation [x] Medication orders and management Critical Care Time (min): 45 Coding Level of Care Code Established Pt Acute Mba Intern for Chg Fwd Patient Type Established History Comprehensive Exam Comprehensive Medical Decision Making High Complexity Diagnoses Acute respiratory distress syndrome (ARDS) due to 2019 novel coronavirus U07.1; J80 Acute hypoxemic respiratory failure due to COVID-19 U07.1; J96.01 Transaminitis R74.01 Time Spent (min) 45
[2021-05-07] VITALS (37 sets, daily range): BP systolic 99–140; BP diastolic 59–93; PULSE 81–124; RESP 17–38; TEMP 36.3–36.7; O2SAT 87–96
[2021-05-07 04:00] LABS: Basophils # 0.1 10^3/uL (0.0-0.1); Basophils % 0.6 %; Eosinophils # 0.1 10^3/uL (0.0-0.8); Eosinophils % 0.3 %; Hematocrit 44.5 % (37.0-47.0); Hemoglobin 14.9 g/dL (11.5-15.3); Lymphocytes # 1.7 10^3/uL (0.8-4.8); Lymphocytes % 8.1 %; Mean Corpuscular HGB Conc 33.5 g/dL (30.0-36.0); Mean Corpuscular Volume 86.7 fl (81-99); Mean Platelet Volume 9.8 fL (7.4-10.4); Monocytes # 0.6 10^3/uL (0.2-0.9); Monocytes % 2.7 %; Neutrophils # 16.67 10^3/uL (1.8-7.7); Neutrophils % 80.7 %; Nucleated Red Blood Cells % 0 %; Platelet Count 469 10^3/cmm (130-400); Red Blood Count 5.13 10^6/uL (4.1-5.3); Red Cell Distribution Width 13.1 % (12.1-15.1); White Blood Count 20.7 10^3/uL (4.0-10.0)
[2021-05-07 04:14] LABS: D Dimer 3.84 ug/mIFEU (0-0.59)
[2021-05-07 04:29] LABS: Procalcitonin 0.04 ng/mL (0-0.5)
[2021-05-07 04:39] LABS: Ferritin 1421 ng/mL (15-150)
[2021-05-07 04:49] LABS: Alanine Aminotransferase 77 U/L (0-33); Albumin Level 3.8 g/dL (3.5-5.2); Alkaline Phosphatase 83 IU/L (35-105); Anion Gap 15.9 (5-19); Aspartate Amino Transferase 35 U/L (0-32); Blood Urea Nitrogen 18 mg/dL (6-20); C Reactive Protein 1.7 mg/L (0.0-4.9); Calcium 9.2 mg/dL (8.5-10.5); Carbon Dioxide 25 mmol/L (22-29); Chloride 96 mmol/L (98-107); Globulin 2.5 g/dL (1.3-4.6); Glomerular Filtration Rate 109.1 mL/min (90-130); Glucose 137 mg/dL (65-115); Magnesium 2.7 mg/dL (1.7-2.3); Osmolality Calculated 278 mOsm/kg (285-295); Potassium 4.9 mmol/L (3.5-5.1); Sodium 132 mmol/L (136-145); Total Bilirubin 0.7 mg/dL (0.15-1.2); Total Protein 6.3 g/dL (6.6-8.7)
[2021-05-07 04:53] LABS: Slide Review Slide Review Perform
[2021-05-07] MEDS: pantoprazole DR 40 mg Tablet PO (05:57)
[2021-05-07] MEDS: heparin 5,000 unit/mL INJ 1 mL 5000 UNIT SUBCUT ×3 (05:57→21:15)
[2021-05-07] MEDS: ALPRAZolam 0.5 mg Tablet PO (05:57)
--- NOTE | 2021-05-07 06:18 | PC.NURSE ---
Shift Note Frequent safety and comfort rounds continue. Orders and/or nursing care completed as indicated. Patient monitored for response to intervention and treatment(s).
--- NOTE | 2021-05-07 08:00 | PC.NURSE ---
Pt up to chair at bedside. Standby assist. . Pt's color much improved today. HHF 40 Liter and 55%. Pt states she is tired, wants to go home. Again today she started shallow breathing and getting anxious which caused her O2 sats to decrease to 82% after exertion. She was able to recover quicker today back up to 88%.
[2021-05-07] MEDS: budesonide 0.5 mg/2 mL Neb INHALATION ×2 (08:37→21:01)
[2021-05-07] MEDS: FUROsemide 10 mg/mL SDV 2mL 20 MG IVP (08:44)
[2021-05-07] MEDS: zinc gluconate 50 mg Tablet PO (08:44)
[2021-05-07] MEDS: cholecalciferol (vitamin D3) 1,000 unit Tablet 1000 UNIT PO (08:44)
[2021-05-07] MEDS: ascorbic acid 500 mg Tablet PO ×2 (08:44→18:13)
[2021-05-07] MEDS: docusate sodium 100 mg Capsule PO (11:50)
[2021-05-07] MEDS: cefTRIAXone 1,000 MG in sodium chloride 0.9% (plus) 50 ML 100 MG IV (13:54)
--- NOTE | 2021-05-07 14:10 | PC.NURSE ---
Pt ready to go back to bed, Standby by assist. Pt able to aintain O2 sats greater than 85% during transfer. Left forearm IV painful with infusion and erythema noted along annula line. Antibiotic stopped. Erythema dissipated. Removed this IV . NEw IV start to right hand. Pt tolerated all well.
[2021-05-07 14:16] LABS: ABG PCO2 33.3 mmHg (35-45); ABG PH Result 7.49 (7.35-7.45); Alveolar-Arterial Oxygen Gradi 42.5 mmHg (5-10); Arterial Blood Gas Hematocrit 49.2 % (37-47); Base Excess ABG 2.7 mmol/L (-2.0-2.0); Blood Gas Allen Test Pos; Blood Gas Operator Identificat CAK; Blood Gas Sample Site Brachial, left; Blood Gas Sample Type Arterial; Carboxyhemoglobin 0.9 %THgb (0.4-20.1); HCO3 ABG 25.5 mmol/L (22-26); HGB O2 Sat 91.2 % (95-100); Ionized Calcium Level - ABG 1.2 mmol/L (1.1-1.4); Methemoglobin 0.5 % (0.4-1.5); Oxygen Device HAG; Oxygen Saturation ABG 92.5; PO2 ABG 59.8 mmHg (80.0-100.0); Potassium Level - ABG 4.4 mmol/L (3.5-5.0); Total Hemoglobin 16.1 g/dL (12-16)
--- NOTE | 2021-05-07 17:05 | PC.NURSE ---
Report faxed to 2a. Further verbal report clled and given to CAPO Molina for room 203, room still needs cleaned . 2A will call when room ready.
--- NOTE | 2021-05-07 17:30 | PC.NURSE ---
Wesley Esqueda, notified via telephone of impending room transfer.
[2021-05-07] MEDS: dexamethasone 10 mg/mL INJ 6 MG IVP (18:13)
--- NOTE | 2021-05-07 18:46 | P.PN_ITS ---
Subjective Subjective: Interval history: Patient was feeling anxious During evaluation. otherwise remained stable overnight Medications: Reviewed: Yes Vitals/I&O/Wt Last Vital Signs Temp 97.4 F L 05/07/21 13:00 Pulse 114 H 05/07/21 18:00 Resp 35 H 05/07/21 18:00 BP 140/93 05/07/21 18:00 Pulse Ox 89 L 05/07/21 18:00 05/07/21 05/07/21 05/07/21 06:59 14:59 22:59 Intake Total 250 / 250 Output Total 1000 / 1750 700 / 700 Balance -1000 / 236.768 -450 / -450 Weight last 48 hrs Weight 88.961 kg Weight 92.261 kg Physical Exam Narrative: EXAM NARRATIVE: General-alert awake and oriented on high-flow nasal cannula HEENT- grossly unremarkable CVS- normal sinus rhythm Chest-nonlabored respiration Abdomen -nondistended Extremities -no edema Urinary Catheter Management^: Torres: Cath Placed During This Visit: yes Reason for Continuing Indwelling Catheter: Accurate Measurement of Urinary Output in Critically Ill Patients Urinary Catheter Date of Insertion: 05/03/21 Urinary Catheter Time of Insertion: 10:45 Data : 05/07/21 03:40 05/07/21 03:40 A&P Assessment and plan (1) Acute hypoxemic respiratory failure due to COVID-19: No change to management Continue high-flow nasal cannula Wean O2 as tolerated Continue to wean Precedex as tolerated Completed Remdesivir Completed 5 days of azithromycin Continue ceftriaxone 1 g IV daily Discussed with pulmonary okay to transfer to COVID-19 step-down unit P\ Status: Acute (2) Pneumonia due to COVID-19 virus: Status: Acute (3) Transaminitis: Continue to trend CMP Status: Acute Additional A&P Information DVT prophylaxis Lovenox 40 mg subcu daily Attestations Medical Necessity Statement*: require further hospitalization for management of COVID-19 pneumonia requiring high-flow nasal cannula Time Spent in Patient Care: Greater than 35 minutes (>than 50% of time spent in counselling and/or direct pt care on unit) . Coding Level of Care Code Acute Systems Engineering Manager for laith Fwd Diagnoses Acute hypoxemic respiratory failure due to COVID-19 U07.1; J96.01 Pneumonia due to COVID-19 virus U07.1; J12.82 Transaminitis R74.01
--- NOTE | 2021-05-07 18:57 | PC.NURSE ---
Shift summary: Pt still has anxiety but she is demonstrating better control. Precedex has been off since previous shift. Pt now on heated high flow at 35 liters and 60%. She has been out of bed twice this shift. She has marched at chair side. She self directs to use IS and acapello now. Lung still sound diminished. She has received Lasix this am. She still has patent norton, 1250 output. today. Her appetite has improved significantly today. Her color looks normal Shift Note Frequent safety and comfort rounds continue. Orders and/or nursing care completed as indicated. Patient monitored for response to intervention and treatment(s). Education provided includes fatigue associated with Covid, Activity with rest periods for oxygenation, O2 at home, Seroquel and stool softners. Patient and/or merchandising representative asked appropriate questions and verbalized understanding. Will continue to monitor. now.
--- NOTE | 2021-05-07 19:27 | P.PN_ITS ---
Subjective Subjective: Interval history: -Patient seen at bedside today morning sitting out of bed to chair -Currently on HFNC 40 L 52% and saturating 90%-increased FiO2 to 60% -Subjective improvement in her shortness of breath but still appears anxious -Monitor showed patient is tachycardic -She is able to eat about 75% of her breakfast -Given 1 dose Lasix 20 mg as patient is 2.4 L positive since admission -Labs and imaging reviewed Medications: Reviewed: Yes Vitals/I&O/Wt Last Vital Signs Temp 97.4 F L 05/07/21 13:00 Pulse 114 H 05/07/21 18:00 Resp 35 H 05/07/21 18:00 BP 140/93 05/07/21 18:00 Pulse Ox 89 L 05/07/21 18:00 05/07/21 05/07/21 05/07/21 06:59 14:59 22:59 Intake Total 250 / 250 500 / 750 Output Total 1000 / 1750 700 / 700 450 / 1150 Balance -1000 / 236.768 -450 / -450 50 / -400 Weight last 48 hrs Weight 196 lb 2 oz Weight 203 lb 6.4 oz Physical Exam Narrative: EXAM NARRATIVE: General: alert, in mild respiratory distress, ill- appearing a bit anxious HEENT: conj clear, EOMI, PERRL, mmm, Neck: supple, no meningismus Heme: no cervical LAP Pulmonary: Bilateral diffuse crackles Cardiovascular: rrr, nl s1s2, no mrg Abdomen: soft, nt, nd, no r/g, bs+ Extremities: pulses +, no edema, no c/c : no CVA tenderness Skin: intact, no rash MSK: no back or neck pain Neurologic: grossly intact Urinary Catheter Management^: Torres: Cath Placed During This Visit: yes Reason for Continuing Indwelling Catheter: Accurate Measurement of Urinary Output in Critically Ill Patients Urinary Catheter Date of Insertion: 05/03/21 Urinary Catheter Time of Insertion: 10:45 Data : 05/07/21 03:40 05/07/21 03:40 Other Labs: Laboratory Results WBC 20.7 10^3/uL (4.0-10.0) H 05/07/21 03:40 RBC 5.13 10^6/uL (4.1-5.3) 05/07/21 03:40 Hgb 14.9 g/dL (11.5-15.3) 05/07/21 03:40 Hct 44.5 % (37.0-47.0) 05/07/21 03:40 MCV 86.7 fl (81-99) 05/07/21 03:40 MCH 29.0 pg (28.0-34.0) 05/07/21 03:40 MCHC 33.5 g/dL (30.0-36.0) 05/07/21 03:40 RDW 13.1 % (12.1-15.1) 05/07/21 03:40 Plt Count 469 10^3/cmm (130-400) H 05/07/21 03:40 MPV 9.8 fL (7.4-10.4) 05/07/21 03:40 Neut % (Auto) 80.7 % 05/07/21 03:40 Lymph % (Auto) 8.1 % 05/07/21 03:40 [place] % (Auto) 2.7 % 05/07/21 03:40 Eos % (Auto) 0.3 % 05/07/21 03:40 Baso % (Auto) 0.6 % 05/07/21 03:40 Neut # (Auto) 16.67 10^3/uL (1.8-7.7) H 05/07/21 03:40 Lymph # (Auto) 1.7 10^3/uL (0.8-4.8) 05/07/21 03:40 [place] # (Auto) 0.6 10^3/uL (0.2-0.9) 05/07/21 03:40 Eos # (Auto) 0.1 10^3/uL (0.0-0.8) 05/07/21 03:40 Baso # (Auto) 0.1 10^3/uL (0.0-0.1) 05/07/21 03:40 Nucleated RBC % (auto) 0 % 05/07/21 03:40 Nucleated RBCs # 0.0 /100WBC 05/07/21 03:40 PT 13.30 SECONDS (12.1-14.9) 05/03/21 06:27 INR 0.98 (0.8-1.2) 05/03/21 06:27 D-Dimer 3.84 ug/mIFEU (0-0.59) H 05/07/21 03:40 Specimen Type Arterial 05/07/21 14:04 Sample Site Brachial, left 05/07/21 14:04 ABG pH 7.49 (7.35-7.45) H 05/07/21 14:04 ABG pCO2 33.3 mmHg (35-45) L 05/07/21 14:04 ABG pO2 59.8 mmHg (80.0-100.0) L 05/07/21 14:04 ABG HCO3 25.5 mmol/L (22-26) 05/07/21 14:04 ABG O2 Saturation 92.5 05/07/21 14:04 ABG Base Excess 2.7 mmol/L (-2.0-2.0) H 05/07/21 14:04 Akhil Test Pos 05/07/21 14:04 A-a O2 Gradient 42.5 mmHg (5-10) H 05/07/21 14:04 Hematocrit 49.2 % (37-47) H 05/07/21 14:04 Hgb O2 Saturation 91.2 % (95-100) L 05/07/21 14:04 Carboxyhemoglobin 0.9 %THgb (0.4-20.1) 05/07/21 14:04 Methemoglobin 0.5 % (0.4-1.5) 05/07/21 14:04 Total Hemoglobin 16.1 g/dL (12-16) H 05/07/21 14:04 Sodium 137.0 mmol/L (131-143) 05/07/21 14:04 Potassium 4.4 mmol/L (3.5-5.0) 05/07/21 14:04 Glucose 128.0 mg/dL (70-115) H 05/07/21 14:04 Ionized Calcium 1.2 mmol/L (1.1-1.4) 05/07/21 14:04 O2 Delivery Device Hag 05/07/21 14:04 O2 Liters/Min 40.0 % 05/07/21 14:04 FiO2 60.0 % 05/07/21 14:04 Successfactors Consultant ID Cak 05/07/21 14:04 Sodium 132 mmol/L (136-145) L 05/07/21 03:40 Potassium 4.9 mmol/L (3.5-5.1) 05/07/21 03:40 Chloride 96 mmol/L (98-107) L 05/07/21 03:40 Carbon Dioxide 25 mmol/L (22-29) 05/07/21 03:40 Anion Gap 15.9 (5-19) 05/07/21 03:40 BUN 18 mg/dL (6-20) 05/07/21 03:40 Creatinine 0.6 mg/dL (0.5-0.9) 05/07/21 03:40 GFR Calculation 109.1 mL/min (90-130) 05/07/21 03:40 Glucose 137 mg/dL (65-115) H 05/07/21 03:40 Calculated Osmolality 278 mOsm/kg (285-295) L 05/07/21 03:40 Lactic Acid 1.9 mmol/L (0.5-2.2) 04/29/21 18:27 Lactate 2.1 mmol/L (0.5-2.2) 05/03/21 06:27 Calcium 9.2 mg/dL (8.5-10.5) 05/07/21 03:40 Phosphorus 3.7 mg/dL (2.5-4.5) 05/03/21 06:27 Magnesium 2.7 mg/dL (1.7-2.3) H 05/07/21 03:40 Ferritin 1421 ng/mL (15-150) H 05/07/21 03:40 Total Bilirubin 0.7 mg/dL (0.15-1.2) 05/07/21 03:40 AST 35 U/L (0-32) H 05/07/21 03:40 ALT 77 U/L (0-33) H 05/07/21 03:40 Alkaline Phosphatase 83 IU/L (35-105) 05/07/21 03:40 Creatine Kinase 46 U/L (26-192) 05/03/21 06:27 C-Reactive Protein 1.7 mg/L (0.0-4.9) 05/07/21 03:40 NT-Pro-B Natriuret Pep 64 pg/mL (0-125) 05/03/21 06:27 Total Protein 6.3 g/dL (6.6-8.7) L 05/07/21 03:40 Albumin 3.8 g/dL (3.5-5.2) 05/07/21 03:40 Globulin 2.5 g/dL (1.3-4.6) 05/07/21 03:40 Procalcitonin 0.04 ng/mL (0-0.5) 05/07/21 03:40 Impressions Chest CTA 04/29/21 19:13 IMPRESSION: 1. No visible evidence of pulmonary embolism/pulmonary arterial thrombus. 2. Bilateral, predominantly peripheral, patches of ground-glass interstitial lung disease opacification with patches of crazy paving and early consolidated alveolar airspace disease consistent with active pneumonitis/pneumonia. Overall constellation of findings would be consistent with Covid-19 pneumonitis/pneumonia. 3. Potential 13 mm nodule at the thyroid isthmus. Not well imaged due to quantum mottle artifact. No follow-up is recommended. COMMENTS: Consistent with the [employer]'s Incidental Findings Committee white paper ([employer] Radiol 2015): In patients aged 35 years and older with an incidental thyroid nodule equal to or greater than 1.[address], MRI or extrathyroidal US, further evaluation with dedicated thyroid US is recommended for patients with normal life expectancy and without comorbidities. For smaller nodules without suspicious features, no further evaluation or follow up is recommended. Radiation Dose CTDIVOL = (mGy): DLP = 584.78 (mGy-cm) Chest X-Ray 05/05/21 04:00 Impression: Increased bilateral pulmonary opacities consistent with pneumonia. A&P Assessment and plan (1) Acute respiratory distress syndrome (ARDS) due to 2019 novel coronavirus: Status: Acute (2) Acute hypoxemic respiratory failure due to COVID-19: Status: Acute (3) Transaminitis: Status: Acute -Today HFNC 40 L 55%-saturating 90%-increased FiO2 to 60% and plan is to titrate FIO2 to keep saturation > 92% -ABG today 7.4 //25 on HFNC 40 L 60% -On Xanax 0.5 mg p.o. 3 times daily as needed for anxiety, also on Precedex drip for anxiety -We will give Seroquel 50 mg p.o. twice daily -Completed 5-day course of remdesivir -Decadron 6 mg daily started on 04/30/2021 for total of 10 days -CT angiogram no radiographic evidence of pulmonary emboli -First dose Actemra 04/30/2021 -Albuterol, budesonide -Rocephin and azithromycin for prophylaxis for secondary bacterial pneumonia- started 04/30/2021 -Low procalcitonin, afebrile, WBC 20,000 today-send for blood cultures, MRSA nares, and if negative and WBC downtrending-DC antibiotics as patient received more than 7 days empiric coverage -Incentive spirometer, flutter valve; Pulmonary toilet, prone positioning -Encouraged to work with physical therapy and sit out of bed to chair -Lasix 686 cc / +2.4 L since admission-lasix 20 mg once dose today -Monitor LFTs -Full code -Prognosis guarded -Regular diet -Heparin subcu for dVT prophylaxis Patient can move out of ICU to Covid stepdown unit Plan to transfer to rehab facility I will sign of the case as patient is moving out of ICU and will please feel free to reconsult if necessary Recommendations conveyed to hospitalist, RN, RT taking care of the patient Attestations Medical Necessity Statement*: Acute hypoxic respiratory failure secondary to ARDS due to COVID-19 pneumonia requiring high flow nasal cannula-close monitoring for impending respiratory failure Time Spent in Patient Care: Greater than 35 minutes (>than 50% of time spent in counselling and/or direct pt care on unit) . Critical Care Time: The high probability of a clinically significant, sudden or life threatening deterioration of the patient's respiratory, renal, hepatic, neurological] system(s) required my full and direct attention, intervention and personal management. The critical care time is as shown. This time is in addition to time spent performing any reported procedures but includes the following: [x] Data and vital sign review and interpretation [x] Patient assessment, examination and intervention [x] Documentation [x] Medication orders and management Critical Care Time (min): 45 Coding Level of Care Code Established Pt Acute Insurance Advisor for g Fwd Patient Type Established History Comprehensive Exam Comprehensive Medical Decision Making High Complexity Diagnoses Acute respiratory distress syndrome (ARDS) due to 2019 novel coronavirus U07.1; J80 Acute hypoxemic respiratory failure due to COVID-19 U07.1; J96.01 Transaminitis R74.01 Time Spent (min) 45
[2021-05-07] MEDS: sennosides 8.6 mg Tablet PO (21:12)
[2021-05-07] MEDS: quetiapine 25 mg Tablet PO (21:12)
[2021-05-08] VITALS (33 sets, daily range): BP systolic 110–128; BP diastolic 72–90; PULSE 77–119; RESP 20–39; TEMP 36.5–36.9; O2SAT 86–96
[2021-05-08] MEDS: heparin 5,000 unit/mL INJ 1 mL 5000 UNIT SUBCUT ×3 (05:37→22:12)
[2021-05-08] MEDS: pantoprazole DR 40 mg Tablet PO (05:37)
[2021-05-08 07:11] LABS: Basophils # 0.1 10^3/uL (0.0-0.1); Basophils % 0.6 %; Eosinophils # 0.1 10^3/uL (0.0-0.8); Eosinophils % 0.3 %; Hematocrit 44.7 % (37.0-47.0); Hemoglobin 14.4 g/dL (11.5-15.3); Lymphocytes # 1.8 10^3/uL (0.8-4.8); Lymphocytes % 8.3 %; Mean Corpuscular HGB Conc 32.2 g/dL (30.0-36.0); Mean Corpuscular Hemoglobin 28.9 pg (28.0-34.0); Mean Corpuscular Volume 89.8 fl (81-99); Mean Platelet Volume 10.2 fL (7.4-10.4); Monocytes # 1.2 10^3/uL (0.2-0.9); Monocytes % 5.5 %; Neutrophils # 16.79 10^3/uL (1.8-7.7); Neutrophils % 78.7 %; Nucleated Red Blood Cells % 0 %; Platelet Count 446 10^3/cmm (130-400); Red Blood Count 4.98 10^6/uL (4.1-5.3); Red Cell Distribution Width 13.2 % (12.1-15.1); White Blood Count 21.3 10^3/uL (4.0-10.0)
[2021-05-08 07:35] LABS: Alanine Aminotransferase 61 U/L (0-33); Albumin Level 3.8 g/dL (3.5-5.2); Alkaline Phosphatase 78 IU/L (35-105); Anion Gap 15.8 (5-19); Aspartate Amino Transferase 23 U/L (0-32); Blood Urea Nitrogen 23 mg/dL (6-20); Calcium 9.3 mg/dL (8.5-10.5); Carbon Dioxide 27 mmol/L (22-29); Chloride 100 mmol/L (98-107); Creatinine Clr Calc Pharmacy 114.4799; Globulin 2.5 g/dL (1.3-4.6); Glomerular Filtration Rate 91.3 mL/min (90-130); Glucose 112 mg/dL (65-115); Magnesium 2.7 mg/dL (1.7-2.3); Osmolality Calculated 290 mOsm/kg (285-295); Potassium 4.8 mmol/L (3.5-5.1); Sodium 138 mmol/L (136-145); Total Bilirubin 0.8 mg/dL (0.15-1.2); Total Protein 6.3 g/dL (6.6-8.7)
[2021-05-08 07:42] LABS: D Dimer 2.72 ug/mIFEU (0-0.59)
[2021-05-08] MEDS: budesonide 0.5 mg/2 mL Neb INHALATION ×2 (08:20→20:25)
[2021-05-08] MEDS: quetiapine 25 mg Tablet PO ×2 (08:28→22:12)
[2021-05-08] MEDS: ascorbic acid 500 mg Tablet PO ×2 (08:28→18:37)
[2021-05-08] MEDS: cholecalciferol (vitamin D3) 1,000 unit Tablet 1000 UNIT PO (08:28)
[2021-05-08] MEDS: zinc gluconate 50 mg Tablet PO (08:28)
[2021-05-08] MEDS: docusate sodium 100 mg Capsule PO (08:28)
[2021-05-08 08:33] LABS: Ferritin 1395 ng/mL (15-150)
[2021-05-08 08:55] LABS: Procalcitonin 0.04 ng/mL (0-0.5)
--- NOTE | 2021-05-08 08:59 | PC.CHAP ---
Pastoral Care Encounter/Spiritual Assessment Type of Contact [] Declined casino enforcement agent visit [] Patient/Family/Request visit [] Outpatient visit [] Follow-up visit [] Physician referral [] Code/Alert [x] Routine visit [] Staff referral [] Actively dying [] Patient sleeping [] Family support [] [] Out of room [] Palliative care [] [] Receiving care in room [] Pre-surgical visit [] Trauma [] Long length of stay [] ICU visit [x] Other: 2a... setting up Relational/Emotional Strength [] Patient feels connected with others/family/visitors/staff [] Distress [] Loneliness/isolation [] Abandonment Spirituality of Patient [] Person of Maria R [] Attends Muslim of their Maria R [] Believes in Prayer [] Reads Bible or Evangelical materials [] There are Spiritual issues to be addressed Supervisor Final Interventions [x] Prayer [] Active listening [] Non-anxious presence [] Spiritual/emotional support [] Crisis/trauma care [] Spiritual counseling [] Bereavement support [] Provided bereavement packet [] Provided Bible/devotional materials [] Provided toy/stuffed animal, coloring book to patient or family member [] Provided Communion [] Anointing/[place] [] Salvation [x] Completed spiritual assessment [] Other: Impact on Illness or Injury [] Angry [] Fearful [] Anxious [] Often cries [] Exhaustion [] Unable to work [] Unable to attend jew [] Unable to walk/stand [] Unable to read [] Unable to drive [] Unable to eat/drink [] Unable to sleep [] Unable to be with family [] Patient intubated [] Other: Summary Time spent with patient
[2021-05-08] MEDS: FUROsemide 10 mg/mL SDV 2mL 20 MG IVP (13:04)
[2021-05-08] MEDS: cefTRIAXone 1,000 MG in sodium chloride 0.9% (plus) 50 ML 100 MG IV (15:42)
--- NOTE | 2021-05-08 17:44 | P.PN_ITS ---
Subjective Subjective: Interval history: patient continues to improve. Was started on oxygen on pendulum. Medications: Reviewed: Yes Vitals/I&O/Wt Last Vital Signs Temp 98.1 F 05/08/21 15:38 Pulse 114 H 05/08/21 15:38 Resp 27 H 05/08/21 15:38 BP 118/76 05/08/21 15:38 Pulse Ox 94 05/08/21 15:38 05/08/21 05/08/21 05/08/21 06:59 14:59 22:59 Intake Total 360 / 360 170 / 530 Output Total 450 / 1600 Balance -450 / -800 360 / 360 170 / 530 Weight last 48 hrs Weight 89.448 kg Weight 88.961 kg Physical Exam Narrative: EXAM NARRATIVE: General-alert awake and oriented on high-flow nasal cannula HEENT- grossly unremarkable CVS- normal sinus rhythm Chest-nonlabored respiration Abdomen -nondistended Extremities -no edema Urinary Catheter Management^: Torres: Cath Placed During This Visit: yes Reason for Continuing Indwelling Catheter: Other Urinary Catheter Date of Insertion: 05/03/21 Urinary Catheter Time of Insertion: 10:45 Data : 05/08/21 05:42 05/08/21 05:42 Micro: Microbiology 05/08/21 09:40 MRSA Culture - Final Nose 05/08/21 05:42 Blood Culture - Preliminary Blood SPECIMEN COLLECTED A&P Assessment and plan (1) Acute hypoxemic respiratory failure due to COVID-19: No change to management Continue high-flow nasal cannula Wean O2 as tolerated Continue to wean Precedex as tolerated Completed Remdesivir Completed 5 days of azithromycin Continue ceftriaxone 1 g IV daily Continue to wean oxygen as tolerated P\ Status: Acute (2) Pneumonia due to COVID-19 virus: Status: Acute (3) Transaminitis: Continue to trend CMP Status: Acute Additional A&P Information DVT prophylaxis Lovenox 40 mg subcu daily Attestations Medical Necessity Statement*: Will require further hospitalization for management of code 90 related respiratory failure Time Spent in Patient Care: Greater than 35 minutes (>than 50% of time spent in counselling and/or direct pt care on unit) . Coding Level of Care Code Acute Lead Cytogenetic Technologist for laith Gallagher Diagnoses Acute hypoxemic respiratory failure due to COVID-19 U07.1; J96.01 Pneumonia due to COVID-19 virus U07.1; J12.82 Transaminitis R74.01
--- NOTE | 2021-05-08 17:59 | PC.RESP ---
RT Shift Note Frequent safety and respiratory rounds continue. Orders completed as indicated. Patient monitored pre and post treatments throughout shift. Patient tolerated treatments appropriately. Condition continued to improve throughout shift. Patient and/or clearance representative educated on respiratory treatment and medications. Patient and/or clearance representative verbalized understanding. Will continue to monitor patient progress.
[2021-05-08] MEDS: dexamethasone 10 mg/mL INJ 6 MG IVP (18:37)
[2021-05-08] MEDS: sennosides 8.6 mg Tablet PO (22:12)
--- NOTE | 2021-05-08 22:28 | PC.RESP ---
RT Shift Note Frequent safety and respiratory rounds continue. Orders completed as indicated. Patient monitored pre and post treatments throughout shift. Patient [Did.] tolerate treatments appropriately. Condition .DidNotChange]. Patient and/or veterans employment representative educated on respiratory treatment and medications. Patient and/or veterans employment representative [ResponseToTeaching]. Will continue to monitor patient progress.
[2021-05-09] VITALS (18 sets, daily range): BP systolic 110–136; BP diastolic 74–90; PULSE 78–118; RESP 13–36; TEMP 36.6–36.8; O2SAT 87–97
--- NOTE | 2021-05-09 06:00 | PC.NURSE ---
There were no new changes or developments with this patient. She did well during the night, but did not sleep during the shift. She continues to become really anxious at times and her oxygen saturation will dip into the 70's. She did this when she got up in the morning to use the bathroom. Once she got back in bad and relaxed, her oxygen saturation went back up into the 90's. She did have a large formed bowel movement.
[2021-05-09] MEDS: heparin 5,000 unit/mL INJ 1 mL 5000 UNIT SUBCUT ×3 (06:14→21:08)
[2021-05-09] MEDS: pantoprazole DR 40 mg Tablet PO (06:14)
[2021-05-09] MEDS: quetiapine 25 mg Tablet PO ×2 (07:37→21:07)
[2021-05-09] MEDS: cholecalciferol (vitamin D3) 1,000 unit Tablet 1000 UNIT PO (07:37)
[2021-05-09] MEDS: docusate sodium 100 mg Capsule PO (07:37)
[2021-05-09] MEDS: ascorbic acid 500 mg Tablet PO ×2 (07:37→17:24)
[2021-05-09] MEDS: zinc gluconate 50 mg Tablet PO (07:38)
--- NOTE | 2021-05-09 07:57 | P.PN_ITS ---
Subjective Subjective: Interval history: patient continues to improve. Oxygen requirements improving Medications: Reviewed: Yes Vitals/I&O/Wt Last Vital Signs Temp 97.8 F 05/10/21 04:56 Pulse 68 05/10/21 04:56 Resp 20 H 05/10/21 04:56 BP 125/89 05/10/21 04:56 Pulse Ox 97 05/10/21 04:56 05/09/21 05/10/21 05/10/21 22:59 06:59 14:59 Intake Total 240 / 410 Output Total 500 / 1275 Balance 240 / -365 -500 / -865 Weight last 48 hrs Weight 88.995 kg Physical Exam Narrative: EXAM NARRATIVE: General-alert awake and oriented pendulum HEENT- grossly unremarkable CVS- normal sinus rhythm Chest-nonlabored respiration Abdomen -nondistended Extremities -no edema Urinary Catheter Management^: Torres: Cath Placed During This Visit: yes Reason for Continuing Indwelling Catheter: Other Urinary Catheter Date of Insertion: 05/03/21 Urinary Catheter Time of Insertion: 10:45 Data : 05/08/21 05:42 05/08/21 05:42 Micro: Microbiology 05/08/21 05:45 Blood Culture - Preliminary Blood NEGATIVE TO DATE 05/08/21 05:42 Blood Culture - Preliminary Blood NEGATIVE TO DATE A&P Assessment and plan (1) Acute hypoxemic respiratory failure due to COVID-19: No change to management Continue high-flow nasal cannula Wean O2 as tolerated Continue to wean Precedex as tolerated Completed Remdesivir Completed 5 days of azithromycin Continue ceftriaxone 1 g IV daily Continue to wean oxygen as tolerated P\ Status: Acute (2) Pneumonia due to COVID-19 virus: Status: Acute (3) Transaminitis: Continue to trend CMP Status: Acute Additional A&P Information DVT prophylaxis Lovenox 40 mg subcu daily Attestations Medical Necessity Statement*: continue hospitalization for management of COVID-19 Time Spent in Patient Care: Greater than 35 minutes (>than 50% of time spent in counselling and/or direct pt care on unit) . Coding Level of Care Code Acute Sole Skiver for [facility] Fwd Diagnoses Acute hypoxemic respiratory failure due to COVID-19 U07.1; J96.01 Pneumonia due to COVID-19 virus U07.1; J12.82 Transaminitis R74.01
[2021-05-09] MEDS: budesonide 0.5 mg/2 mL Neb INHALATION ×2 (09:11→20:15)
--- NOTE | 2021-05-09 09:17 | PC.CHAP ---
Pastoral Care Encounter/Spiritual Assessment Type of Contact [] Declined mill attendant visit [] Patient/Family/Request visit [] Outpatient visit [] Follow-up visit [] Physician referral [] Code/Alert [x] Routine visit [] Staff referral [] Actively dying [] Patient sleeping [] Family support [] [] Out of room [] Palliative care [] [] Receiving care in room [] Pre-surgical visit [] Trauma [] Long length of stay [] ICU visit [x] Other: 2a Relational/Emotional Strength [] Patient feels connected with others/family/visitors/staff [] Distress [] Loneliness/isolation [] Abandonment Spirituality of Patient [] Person of Maria R [] Attends Mandaeism of their Maria R [] Believes in Prayer [] Reads Bible or Uatsdin materials [] There are Spiritual issues to be addressed Assisted Living Coordinator Interventions [x] Prayer [] Active listening [] Non-anxious presence [] Spiritual/emotional support [] Crisis/trauma care [] Spiritual counseling [] Bereavement support [] Provided bereavement packet [] Provided Bible/devotional materials [] Provided toy/stuffed animal, coloring book to patient or family member [] Provided Communion [] Anointing/[place] [] Salvation [x] Completed spiritual assessment [] Other: Impact on Illness or Injury [] Angry [] Fearful [] Anxious [] Often cries [] Exhaustion [] Unable to work [] Unable to attend episcopal [] Unable to walk/stand [] Unable to read [] Unable to drive [] Unable to eat/drink [] Unable to sleep [] Unable to be with family [] Patient intubated [] Other: Summary Time spent with patient
[2021-05-09] MEDS: cefTRIAXone 1,000 MG in sodium chloride 0.9% (plus) 50 ML 100 MG IV (13:08)
[2021-05-09] MEDS: dexamethasone 10 mg/mL INJ 6 MG IVP (17:24)
--- NOTE | 2021-05-09 17:54 | PC.RESP ---
RT Shift Note Frequent safety and respiratory rounds continue. Orders completed as indicated. Patient monitored pre and post treatments throughout shift. Patient tolerated treatments appropriately. Condition did not change. Patient and/or insurance account representative educated on respiratory treatment and medications. Patient and/or insurance account representative verbalized understanding. Will continue to monitor patient progress.
[2021-05-09] MEDS: sennosides 8.6 mg Tablet PO (21:07)
[2021-05-09] MEDS: ALPRAZolam 0.5 mg Tablet PO (21:07)
--- NOTE | 2021-05-09 21:53 | PC.RESP ---
RT Shift Note Frequent safety and respiratory rounds continue. Orders completed as indicated. Patient monitored pre and post treatments throughout shift. Patient [Did] tolerate treatments appropriately. Condition .DidNotChange]. Patient and/or eligibility services representative educated on respiratory treatment and medications. Patient and/or eligibility services representative very responsive to breathing txs and the need to prone as well as use her IS and flutter]. Will continue to monitor patient progress.
[2021-05-10] VITALS (19 sets, daily range): BP systolic 94–125; BP diastolic 66–89; PULSE 68–112; RESP 9–31; TEMP 36.6–36.8; O2SAT 84–98
[2021-05-10] MEDS: pantoprazole DR 40 mg Tablet PO (05:32)
[2021-05-10] MEDS: heparin 5,000 unit/mL INJ 1 mL 5000 UNIT SUBCUT ×3 (05:35→21:42)
[2021-05-10] MEDS: ascorbic acid 500 mg Tablet PO ×2 (07:38→17:14)
[2021-05-10] MEDS: zinc gluconate 50 mg Tablet PO (07:38)
[2021-05-10] MEDS: docusate sodium 100 mg Capsule PO (07:38)
[2021-05-10] MEDS: cholecalciferol (vitamin D3) 1,000 unit Tablet 1000 UNIT PO (07:39)
[2021-05-10] MEDS: quetiapine 25 mg Tablet PO ×2 (07:40→20:29)
[2021-05-10] MEDS: budesonide 0.5 mg/2 mL Neb INHALATION ×2 (09:00→20:16)
--- NOTE | 2021-05-10 13:02 | P.PN_ITS ---
Subjective Subjective: Interval history: Patient was weaned down to 5 L O2 via nasal cannula. She did however desat with exertion. Slow to recover. Oxygen saturations around 85% at the time of my evaluation. Did not appear to be in respiratory distress. No fever, chills, nausea vomiting. Medications: Reviewed: Yes Vitals/I&O/Wt Last Vital Signs Temp 97.9 F 05/10/21 11:51 Pulse 102 H 05/10/21 11:51 Resp 30 H 05/10/21 11:51 BP 116/69 05/10/21 11:51 Pulse Ox 85 L 05/10/21 11:51 05/09/21 05/10/21 05/10/21 22:59 06:59 14:59 Intake Total 240 / 410 360 / 360 Output Total 500 / 1275 Balance 240 / -365 -500 / -865 360 / 360 Weight last 48 hrs Weight 89.902 kg Weight 88.995 kg Physical Exam Narrative: EXAM NARRATIVE: General-alert awake and oriented 02 pendulum HEENT- grossly unremarkable CVS- normal sinus rhythm Chest-nonlabored respiration Abdomen -nondistended Extremities -no edema Urinary Catheter Management^: Norton: Cath Placed During This Visit: yes Reason for Continuing Indwelling Catheter: Other Urinary Catheter Date of Insertion: 05/03/21 Urinary Catheter Time of Insertion: 10:45 Data : 05/08/21 05:42 05/08/21 05:42 Micro: Microbiology 05/08/21 05:45 Blood Culture - Preliminary Blood NEGATIVE TO DATE A&P Assessment and plan (1) Acute hypoxemic respiratory failure due to COVID-19: No change to management Wean O2 as tolerated Completed Remdesivir Completed 5 days of azithromycin Disontinue ceftriaxone 1 g IV daily Continue to wean oxygen as tolerated Home o2 eval in am Repeat labs in am D/C norton P\ Status: Acute (2) Pneumonia due to COVID-19 virus: Status: Acute (3) Transaminitis: Continue to trend CMP Status: Acute Additional A&P Information DVT prophylaxis Lovenox 40 mg subcu daily Attestations Medical Necessity Statement*: Require further hospitalization for management of COVID-19 pneumonia Time Spent in Patient Care: Greater than 35 minutes (>than 50% of time spent in counselling and/or direct pt care on unit) . Coding Level of Care Code Acute Infection Preventionist for Chg Fwd Diagnoses Acute hypoxemic respiratory failure due to COVID-19 U07.1; J96.01 Pneumonia due to COVID-19 virus U07.1; J12.82 Transaminitis R74.01
[2021-05-10] MEDS: cefTRIAXone 1,000 MG in sodium chloride 0.9% (plus) 50 ML 100 MG IV (14:04)
[2021-05-10] MEDS: dexamethasone 10 mg/mL INJ 6 MG IVP (17:14)
--- NOTE | 2021-05-10 17:44 | PC.RESP ---
RT Shift Note Frequent safety and respiratory rounds continue. Orders completed as indicated. Patient monitored pre and post treatments throughout shift. Patient tolerated treatments appropriately. Condition did not change. Patient and/or in store marketing representative educated on respiratory treatment and medications. Patient and/or in store marketing representative verbalized understanding. Will continue to monitor patient progress.
[2021-05-10] MEDS: sennosides 8.6 mg Tablet PO (20:29)
[2021-05-11] VITALS (13 sets, daily range): BP systolic 100–122; BP diastolic 72–82; PULSE 84–117; RESP 18–32; TEMP 36.7–36.9; O2SAT 93–97
[2021-05-11 05:13] LABS: Basophils # 0.1 10^3/uL (0.0-0.1); Basophils % 0.6 %; Eosinophils % 0.1 %; Hematocrit 40.4 % (37.0-47.0); Hemoglobin 13.3 g/dL (11.5-15.3); Lymphocytes # 1.4 10^3/uL (0.8-4.8); Lymphocytes % 7.1 %; Mean Corpuscular HGB Conc 32.9 g/dL (30.0-36.0); Mean Corpuscular Hemoglobin 29.4 pg (28.0-34.0); Mean Corpuscular Volume 89.2 fl (81-99); Mean Platelet Volume 10.8 fL (7.4-10.4); Monocytes # 0.9 10^3/uL (0.2-0.9); Monocytes % 4.6 %; Neutrophils # 16.39 10^3/uL (1.8-7.7); Nucleated Red Blood Cells % 0 %; Platelet Count 263 10^3/cmm (130-400); Red Blood Count 4.53 10^6/uL (4.1-5.3); Red Cell Distribution Width 13.2 % (12.1-15.1); White Blood Count 19.7 10^3/uL (4.0-10.0)
[2021-05-11 06:51] LABS: Alanine Aminotransferase 49 U/L (0-33); Albumin Level 3.7 g/dL (3.5-5.2); Alkaline Phosphatase 62 IU/L (35-105); Anion Gap 19.2 (5-19); Aspartate Amino Transferase 20 U/L (0-32); Blood Urea Nitrogen 19 mg/dL (6-20); Carbon Dioxide 23 mmol/L (22-29); Chloride 98 mmol/L (98-107); Globulin 2.7 g/dL (1.3-4.6); Glomerular Filtration Rate 109.1 mL/min (90-130); Glucose 122 mg/dL (65-115); Osmolality Calculated 286 mOsm/kg (285-295); Potassium 4.2 mmol/L (3.5-5.1); Sodium 136 mmol/L (136-145); Total Bilirubin 0.7 mg/dL (0.15-1.2); Total Protein 6.4 g/dL (6.6-8.7)
[2021-05-11] MEDS: pantoprazole DR 40 mg Tablet PO (07:17)
[2021-05-11] MEDS: heparin 5,000 unit/mL INJ 1 mL 5000 UNIT SUBCUT ×3 (07:17→21:45)
[2021-05-11] MEDS: budesonide 0.5 mg/2 mL Neb INHALATION ×2 (08:12→20:16)
[2021-05-11] MEDS: zinc gluconate 50 mg Tablet PO (09:05)
[2021-05-11] MEDS: quetiapine 25 mg Tablet PO ×2 (09:05→20:51)
[2021-05-11] MEDS: docusate sodium 100 mg Capsule PO (09:05)
[2021-05-11] MEDS: cholecalciferol (vitamin D3) 1,000 unit Tablet 1000 UNIT PO (09:05)
[2021-05-11] MEDS: ascorbic acid 500 mg Tablet PO ×2 (09:05→17:39)
[2021-05-11] MEDS: cefTRIAXone 1,000 MG in sodium chloride 0.9% (plus) 50 ML 100 MG IV (14:23)
--- NOTE | 2021-05-11 14:45 | PM.PN ---
Subjective Subjective: Interval history: Noted to have respiratory distress With exertion. Was requiring up to 8 L of O2 no fever chills overnight. A nausea vomiting. Medications: Reviewed: Yes Vitals/I&O/Wt Last Vital Signs Temp 98.2 F 05/11/21 11:55 Pulse 93 05/11/21 14:23 Resp 27 H 05/11/21 14:23 BP 122/79 05/11/21 11:55 Pulse Ox 95 05/11/21 14:23 05/10/21 05/11/21 05/11/21 22:59 06:59 14:59 Intake Total 360 / 890 120 / 1010 480 / 480 Output Total 150 / 150 100 / 250 200 / 200 Balance 210 / 740 20 / 760 280 / 280 Weight last 48 hrs Weight 90.628 kg Weight 89.902 kg Physical Exam Narrative: EXAM NARRATIVE: General-alert awake and oriented 02 pendulum HEENT- grossly unremarkable CVS- normal sinus rhythm Chest-nonlabored respiration Abdomen -nondistended Extremities -no edema Urinary Catheter Management^: Torres: Cath Placed During This Visit: yes, but has since been removed by the nurse Reason for Continuing Indwelling Catheter: Decision to DC Catheter Urinary Catheter Date of Insertion: 05/03/21 Urinary Catheter Time of Insertion: 10:45 Date Urinary Catheter Removed: 05/10/21 Time Urinary Catheter Discontinued: 14:30 Data : 05/11/21 04:02 05/11/21 04:02 A&P Assessment and plan (1) Acute hypoxemic respiratory failure due to COVID-19: No change to management Wean O2 as tolerated Completed Remdesivir Completed 5 days of azithromycin Monitoring off antibiotics Continue to wean oxygen as tolerated Home o2 eval in am Repeat labs in am May consider additional Lasix. P\ Status: Acute (2) Pneumonia due to COVID-19 virus: Status: Acute (3) Transaminitis: Continue to trend CMP Status: Acute Additional A&P Information DVT prophylaxis Lovenox 40 mg subcu daily Attestations Medical Necessity Statement*: Require further hospitalization for management of COVID-19 pneumonia Time Spent in Patient Care: Greater than 35 minutes (>than 50% of time spent in counselling and/or direct pt care on unit). Coding Level of Care Code Acute Lace Inspector for Laurie Gallagher Diagnoses Acute hypoxemic respiratory failure due to COVID-19 U07.1; J96.01 Pneumonia due to COVID-19 virus U07.1; J12.82 Transaminitis R74.01
[2021-05-11] MEDS: FUROsemide 40 mg Tablet PO (16:13)
[2021-05-11] MEDS: dexamethasone 10 mg/mL INJ 6 MG IVP (18:36)
[2021-05-11] MEDS: sennosides 8.6 mg Tablet PO (20:51)
[2021-05-12] VITALS (16 sets, daily range): BP systolic 115–122; BP diastolic 73–81; PULSE 75–115; RESP 19–30; TEMP 36.5–36.8; O2SAT 91–99
[2021-05-12 05:33] LABS: Basophils # 0.1 10^3/uL (0.0-0.1); Basophils % 0.6 %; Eosinophils % 0.2 %; Hematocrit 43.6 % (37.0-47.0); Hemoglobin 13.8 g/dL (11.5-15.3); Lymphocytes # 1.4 10^3/uL (0.8-4.8); Lymphocytes % 8.7 %; Mean Corpuscular HGB Conc 31.7 g/dL (30.0-36.0); Mean Corpuscular Hemoglobin 29.1 pg (28.0-34.0); Mean Corpuscular Volume 91.8 fl (81-99); Mean Platelet Volume 11.4 fL (7.4-10.4); Monocytes # 0.9 10^3/uL (0.2-0.9); Monocytes % 5.8 %; Neutrophils # 13.03 10^3/uL (1.8-7.7); Nucleated Red Blood Cells % 0 %; Platelet Count 184 10^3/cmm (130-400); Red Blood Count 4.75 10^6/uL (4.1-5.3); Red Cell Distribution Width 13.4 % (12.1-15.1); White Blood Count 16.3 10^3/uL (4.0-10.0)
[2021-05-12 05:52] LABS: Alanine Aminotransferase 57 U/L (0-33); Albumin Level 3.9 g/dL (3.5-5.2); Alkaline Phosphatase 61 IU/L (35-105); Aspartate Amino Transferase 19 U/L (0-32); Blood Urea Nitrogen 22 mg/dL (6-20); Calcium 9.5 mg/dL (8.5-10.5); Carbon Dioxide 24 mmol/L (22-29); Chloride 100 mmol/L (98-107); Globulin 2.8 g/dL (1.3-4.6); Glomerular Filtration Rate 91.3 mL/min (90-130); Glucose 112 mg/dL (65-115); Osmolality Calculated 288 mOsm/kg (285-295); Sodium 137 mmol/L (136-145); Total Bilirubin 0.6 mg/dL (0.15-1.2); Total Protein 6.7 g/dL (6.6-8.7)
[2021-05-12 05:54] LABS: Anion Gap 17.8 (5-19); Potassium 4.8 mmol/L (3.5-5.1)
[2021-05-12] MEDS: pantoprazole DR 40 mg Tablet PO (06:18)
[2021-05-12] MEDS: heparin 5,000 unit/mL INJ 1 mL 5000 UNIT SUBCUT ×3 (06:18→21:00)
[2021-05-12] MEDS: zinc gluconate 50 mg Tablet PO (08:13)
[2021-05-12] MEDS: docusate sodium 100 mg Capsule PO (08:13)
[2021-05-12] MEDS: FUROsemide 40 mg Tablet PO (08:13)
[2021-05-12] MEDS: cholecalciferol (vitamin D3) 1,000 unit Tablet 1000 UNIT PO (08:13)
[2021-05-12] MEDS: quetiapine 25 mg Tablet PO ×2 (08:13→20:59)
[2021-05-12] MEDS: ascorbic acid 500 mg Tablet PO ×2 (08:13→18:53)
[2021-05-12] MEDS: budesonide 0.5 mg/2 mL Neb INHALATION ×2 (08:26→20:00)
[2021-05-12] MEDS: LORazepam 2 mg/mL INJ 1 mL 0.5 MG IVP (11:26)
--- NOTE | 2021-05-12 14:51 | P.PN_ITS ---
Subjective Subjective: Interval history: Patient was feeling anxious. Oxygen requirements were increased to 15 L. Medications: Reviewed: Yes Vitals/I&O/Wt Last Vital Signs Temp 98.1 F 05/12/21 12:00 Pulse 115 H 05/12/21 14:33 Resp 22 H 05/12/21 14:28 BP 116/80 05/12/21 12:00 Pulse Ox 91 05/12/21 14:28 05/11/21 05/12/21 05/12/21 22:59 06:59 14:59 Intake Total 110 / 590 240 / 830 480 / 480 Output Total 800 / 1000 300 / 300 Balance -690 / -410 240 / -170 180 / 180 Weight last 48 hrs Weight 90.628 kg Physical Exam Narrative: EXAM NARRATIVE: General-alert awake and oriented on 15L HEENT- grossly unremarkable CVS- normal sinus rhythm Chest-nonlabored respiration Abdomen -nondistended Extremities -no edema Urinary Catheter Management^: Torres: Cath Placed During This Visit: yes, but has since been removed by the nurse Reason for Continuing Indwelling Catheter: Decision to DC Catheter Urinary Catheter Date of Insertion: 05/03/21 Urinary Catheter Time of Insertion: 10:45 Date Urinary Catheter Removed: 05/10/21 Time Urinary Catheter Discontinued: 14:30 Data : 05/12/21 04:00 05/12/21 04:00 A&P Assessment and plan (1) Acute hypoxemic respiratory failure due to COVID-19: No change to management Wean O2 as tolerated Completed Remdesivir Completed 5 days of azithromycin Monitoring off antibiotics Continue to wean oxygen as tolerated May consider additional Lasix. increased to 15L Desaturation with minimal exertion Labs stable P\ Status: Acute (2) Pneumonia due to COVID-19 virus: Status: Acute (3) Transaminitis: Continue to trend CMP Status: Acute Additional A&P Information DVT prophylaxis Lovenox 40 mg subcu daily Attestations Medical Necessity Statement*: Will require further hospiatalizaation for management of covid 19 pneumonia Time Spent in Patient Care: Greater than 35 minutes (>than 50% of time spent in counselling and/or direct pt care on unit) . Coding Level of Care Code Acute Airplane Charter Clerk for laith Gallagher Diagnoses Acute hypoxemic respiratory failure due to COVID-19 U07.1; J96.01 Pneumonia due to COVID-19 virus U07.1; J12.82 Transaminitis R74.01
[2021-05-12] MEDS: cefTRIAXone 1,000 MG in sodium chloride 0.9% (plus) 50 ML 100 MG IV (15:32)
[2021-05-12] MEDS: dexamethasone 10 mg/mL INJ 6 MG IVP (18:53)
--- NOTE | 2021-05-12 20:28 | PC.NURSE ---
Shift Note Frequent safety and comfort rounds continue. Orders and/or nursing care completed as indicated. Patient monitored for response to intervention and treatment(s). Education provided includes oxygen use, new meds. Patient and/or escrow representative verbalizes understanding. Will continue to monitor.
[2021-05-12] MEDS: sennosides 8.6 mg Tablet PO (20:59)
[2021-05-13] VITALS (14 sets, daily range): BP systolic 105–124; BP diastolic 76–89; PULSE 0–115; RESP 20–27; TEMP 36.7–37; O2SAT 91–96; BMI 32.7
[2021-05-13] MEDS: pantoprazole DR 40 mg Tablet PO (06:25)
[2021-05-13] MEDS: heparin 5,000 unit/mL INJ 1 mL 5000 UNIT SUBCUT ×3 (06:25→21:15)
[2021-05-13] MEDS: quetiapine 25 mg Tablet PO ×2 (08:42→21:15)
[2021-05-13] MEDS: cholecalciferol (vitamin D3) 1,000 unit Tablet 1000 UNIT PO (08:43)
[2021-05-13] MEDS: docusate sodium 100 mg Capsule PO (08:43)
[2021-05-13] MEDS: FUROsemide 40 mg Tablet PO (08:43)
[2021-05-13] MEDS: ascorbic acid 500 mg Tablet PO ×2 (08:43→17:48)
[2021-05-13] MEDS: zinc gluconate 50 mg Tablet PO (08:43)
[2021-05-13] MEDS: budesonide 0.5 mg/2 mL Neb INHALATION ×2 (09:03→20:05)
--- NOTE | 2021-05-13 13:55 | PM.PN ---
Subjective Subjective: Interval history: Patient was feeling somewhat better today however still requiring Up to of 10L O2 via nasal cannula. No fever, chills, nausea vomiting. Did have a very slight episode of epistaxis. Medications: Reviewed: Yes Vitals/I&O/Wt Last Vital Signs Temp 98.1 F 05/13/21 12:06 Pulse 105 H 05/13/21 12:06 Resp 20 H 05/13/21 12:06 BP 120/89 05/13/21 12:06 Pulse Ox 91 05/13/21 12:06 05/12/21 05/13/21 05/13/21 22:59 06:59 14:59 Intake Total 290 / 770 240 / 240 Output Total 800 / 1100 Balance -510 / -330 240 / 240 Weight last 48 hrs Weight 89.222 kg Physical Exam Narrative: EXAM NARRATIVE: General-alert awake and oriented on 10L HEENT- grossly unremarkable CVS- normal sinus rhythm Chest-nonlabored respiration Abdomen -nondistended Extremities -no edema Urinary Catheter Management^: Torres: Cath Placed During This Visit: yes, but has since been removed by the nurse Reason for Continuing Indwelling Catheter: Decision to DC Catheter Urinary Catheter Date of Insertion: 05/03/21 Urinary Catheter Time of Insertion: 10:45 Date Urinary Catheter Removed: 05/10/21 Time Urinary Catheter Discontinued: 14:30 Data : 05/12/21 04:00 05/12/21 04:00 Micro: Microbiology 05/08/21 05:42 Blood Culture - Final Blood NO GROWTH AFTER 5 DAYS A&P Assessment and plan (1) Acute hypoxemic respiratory failure due to COVID-19: No change to management Wean O2 as tolerated Completed Remdesivir Completed 5 days of azithromycin Monitoring off antibiotics Continue to wean oxygen as tolerated Desaturation with minimal exertion Labs stable Continue to titrate oxygen requirements. Particularly with exertion. P\ Status: Acute (2) Pneumonia due to COVID-19 virus: Status: Acute (3) Transaminitis: Continue to trend CMP Status: Acute Additional A&P Information DVT prophylaxis Lovenox 40 mg subcu daily Attestations Medical Necessity Statement*: Require further hospitalization for management of COVID-19 Time Spent in Patient Care: Greater than 35 minutes (>than 50% of time spent in counselling and/or direct pt care on unit). Coding Level of Care Code Acute Vice President Digital Strategist for Laurie Fwd Diagnoses Acute hypoxemic respiratory failure due to COVID-19 U07.1; J96.01 Pneumonia due to COVID-19 virus U07.1; J12.82 Transaminitis R74.01
--- NOTE | 2021-05-13 20:50 | PC.RESP ---
RT Shift Note Frequent safety and respiratory rounds continue. Orders completed as indicated. Patient monitored pre and post treatments throughout shift. Patient [Did] tolerate treatments appropriately. Condition DidNotChange]. Patient and/or procurement representative educated on respiratory treatment and medications. Patient and/or procurement representative [ResponseToTeaching]. Will continue to monitor patient progress.
[2021-05-13] MEDS: sennosides 8.6 mg Tablet PO (21:15)
[2021-05-14] VITALS (11 sets, daily range): BP systolic 109–124; BP diastolic 75–94; PULSE 0–120; RESP 18–26; TEMP 36.6–36.8; O2SAT 92–99
[2021-05-14] MEDS: heparin 5,000 unit/mL INJ 1 mL 5000 UNIT SUBCUT ×3 (05:55→21:20)
[2021-05-14] MEDS: pantoprazole DR 40 mg Tablet PO (05:55)
--- NOTE | 2021-05-14 07:00 | XRR_ITS ---
PROCEDURE INFORMATION: Exam: XR Chest Exam date and time: 05/14/2021 7:00 AM Age: 45 years old Clinical indication: Shortness of breath; Additional info: Respiratory failure TECHNIQUE: Imaging protocol: XR of the chest. Views: Frontal portable upright view of the chest. COMPARISON: CR XR chest 1V portable [id number] 05/05/2021 5:07 AM FINDINGS: Tubes, catheters and devices: EKG leads are present overlying the chest. Lungs: Moderate pulmonary hypoexpansion. Improved heterogeneous air space opacities in the bilateral lungs. The pulmonary vasculature is obscured by increased lung attenuation. Pleural spaces: No pleural effusion. No pneumothorax. Heart/Mediastinum: The heart is normal in size and contour. Mediastinum: Stable. Bones/joints: Stable. XR/XR chest 1V portable [id number] IMPRESSION: 1. Moderate pulmonary hypoexpansion. 2. Improved bilateral pulmonary infiltrates.
[2021-05-14 07:18] LABS: Basophils # 0.2 10^3/uL (0.0-0.1); Basophils % 1.3 %; Eosinophils # 0.7 10^3/uL (0.0-0.8); Hemoglobin 14.2 g/dL (11.5-15.3); Lymphocytes # 2.8 10^3/uL (0.8-4.8); Lymphocytes % 24.8 %; Mean Corpuscular HGB Conc 32.3 g/dL (30.0-36.0); Mean Corpuscular Hemoglobin 29.1 pg (28.0-34.0); Mean Corpuscular Volume 90.2 fl (81-99); Mean Platelet Volume 10.8 fL (7.4-10.4); Monocytes # 1.3 10^3/uL (0.2-0.9); Monocytes % 11.2 %; Neutrophils # 6.02 10^3/uL (1.8-7.7); Neutrophils % 52.6 %; Nucleated Red Blood Cells % 0 %; Platelet Count 187 10^3/cmm (130-400); Red Blood Count 4.88 10^6/uL (4.1-5.3); Red Cell Distribution Width 13.9 % (12.1-15.1); White Blood Count 11.5 10^3/uL (4.0-10.0)
[2021-05-14 07:49] LABS: Alanine Aminotransferase 54 U/L (0-33); Albumin Level 3.8 g/dL (3.5-5.2); Alkaline Phosphatase 57 IU/L (35-105); Anion Gap 14.8 (5-19); Aspartate Amino Transferase 22 U/L (0-32); Blood Urea Nitrogen 21 mg/dL (6-20); Calcium 9.4 mg/dL (8.5-10.5); Carbon Dioxide 30 mmol/L (22-29); Chloride 99 mmol/L (98-107); Globulin 2.6 g/dL (1.3-4.6); Glomerular Filtration Rate 68.3 mL/min (90-130); Glucose 82 mg/dL (65-115); Magnesium 2.7 mg/dL (1.7-2.3); Osmolality Calculated 292 mOsm/kg (285-295); Potassium 3.8 mmol/L (3.5-5.1); Sodium 140 mmol/L (136-145); Total Bilirubin 0.7 mg/dL (0.15-1.2); Total Protein 6.4 g/dL (6.6-8.7)
[2021-05-14 07:56] LABS: Procalcitonin 0.07 ng/mL (0-0.5)
[2021-05-14] MEDS: budesonide 0.5 mg/2 mL Neb INHALATION ×2 (08:18→20:25)
[2021-05-14 08:27] LABS: Ferritin 1113 ng/mL (15-150)
[2021-05-14] MEDS: quetiapine 25 mg Tablet PO ×2 (09:39→21:20)
[2021-05-14] MEDS: FUROsemide 40 mg Tablet PO (09:39)
[2021-05-14] MEDS: ascorbic acid 500 mg Tablet PO ×2 (09:39→17:30)
[2021-05-14] MEDS: cholecalciferol (vitamin D3) 1,000 unit Tablet 1000 UNIT PO (09:39)
[2021-05-14] MEDS: zinc gluconate 50 mg Tablet PO (09:39)
[2021-05-14] MEDS: docusate sodium 100 mg Capsule PO (09:43)
[2021-05-14] MEDS: cyclobenzaprine 10 mg Tablet PO (12:08)
--- NOTE | 2021-05-14 17:12 | PM.PN ---
Subjective Subjective: Interval history: Patients oxygen saturations improved. Was requiring 6 L of O2 via nasal cannula. Was complaining of restless legs. Medications: Reviewed: Yes Vitals/I&O/Wt Last Vital Signs Temp 97.9 F 05/14/21 15:51 Pulse 116 H 05/14/21 15:51 Resp 20 H 05/14/21 15:51 BP 110/75 05/14/21 15:51 Pulse Ox 92 05/14/21 15:51 05/14/21 05/14/21 05/14/21 06:59 14:59 22:59 Intake Total 240 / 240 Output Total 225 / 375 Balance -225 / 65 240 / 240 Weight last 48 hrs Weight 88.178 kg Weight 89.222 kg Physical Exam Narrative: EXAM NARRATIVE: General-alert awake and oriented on 6L HEENT- grossly unremarkable CVS- normal sinus rhythm Chest-nonlabored respiration Abdomen -nondistended Extremities -no edema Urinary Catheter Management^: Torres: Cath Placed During This Visit: yes, but has since been removed by the nurse Reason for Continuing Indwelling Catheter: Decision to DC Catheter Urinary Catheter Date of Insertion: 05/03/21 Urinary Catheter Time of Insertion: 10:45 Date Urinary Catheter Removed: 05/10/21 Time Urinary Catheter Discontinued: 14:30 Data : 05/14/21 05:35 05/14/21 05:35 Micro: Microbiology 05/08/21 05:45 Blood Culture - Final Blood NO GROWTH AFTER 5 DAYS A&P Assessment and plan (1) Acute hypoxemic respiratory failure due to COVID-19: No change to management Wean O2 as tolerated Completed Remdesivir Completed 5 days of azithromycin Monitoring off antibiotics Continue to wean oxygen as tolerated Desaturation with minimal exertion Labs stable Continue to titrate oxygen requirements. Particularly with exertion. Patients oxygen requirement decreased to 6 L P\ Status: Acute (2) Pneumonia due to COVID-19 virus: Status: Acute (3) Transaminitis: Continue to trend CMP Status: Acute (4) Leg cramps: Flexeril 10 mg oral x1 Status: Acute Additional A&P Information DVT prophylaxis Lovenox 40 mg subcu daily Attestations Medical Necessity Statement*: Require further hospitalization for management of COVID-19 Time Spent in Patient Care: Greater than 35 minutes (>than 50% of time spent in counselling and/or direct pt care on unit). Coding Level of Care Code Acute Investigative Reporter for [facility] Fwd Diagnoses Acute hypoxemic respiratory failure due to COVID-19 U07.1; J96.01 Pneumonia due to COVID-19 virus U07.1; J12.82 Transaminitis R74.01 Leg cramps R25.2
[2021-05-14] MEDS: metoprolol tartrate 25 mg Tablet 12.5 MG PO (18:00)
[2021-05-14] MEDS: sennosides 8.6 mg Tablet PO (21:20)
[2021-05-15] VITALS (9 sets, daily range): BP systolic 112–144; BP diastolic 68–92; PULSE 68–100; RESP 18–22; TEMP 36.7; O2SAT 90–98
[2021-05-15] MEDS: heparin 5,000 unit/mL INJ 1 mL 5000 UNIT SUBCUT ×2 (05:46→14:35)
[2021-05-15] MEDS: pantoprazole DR 40 mg Tablet PO (05:46)
--- NOTE | 2021-05-15 08:48 | PC.CHAP ---
Pastoral Care Encounter/Spiritual Assessment Type of Contact [] Declined advertising analyst visit [] Patient/Family/Request visit [] Outpatient visit [] Follow-up visit [] Physician referral [] Code/Alert [x] Routine visit [] Staff referral [] Actively dying [] Patient sleeping [] Family support [] [] Out of room [] Palliative care [] [] Receiving care in room [] Pre-surgical visit [] Trauma [] Long length of stay [] ICU visit [x] Other: 2a Relational/Emotional Strength [] Patient feels connected with others/family/visitors/staff [] Distress [] Loneliness/isolation [] Abandonment Spirituality of Patient [x] Person of Maria R [x] Attends Religion of their Maria R [] Believes in Prayer [] Reads Bible or Anabaptist materials [] There are Spiritual issues to be addressed Upfitter Interventions [x] Prayer [x] Active listening [x] Non-anxious presence [x] Spiritual/emotional support [] Crisis/trauma care [] Spiritual counseling [] Bereavement support [] Provided bereavement packet [] Provided Bible/devotional materials [] Provided toy/stuffed animal, coloring book to patient or family member [] Provided Communion [] Anointing/[place] [] Salvation [x] Completed spiritual assessment [] Other: Impact on Illness or Injury [] Angry [] Fearful [] Anxious [] Often cries [] Exhaustion [] Unable to work [] Unable to attend alevism [] Unable to walk/stand [] Unable to read [] Unable to drive [] Unable to eat/drink [] Unable to sleep [] Unable to be with family [] Patient intubated [] Other: Summary have visited patient everyday of her stay... we pray for strength.. healing for all those in the hospital served breakfast Time spent with patient 10 min
[2021-05-15] MEDS: cholecalciferol (vitamin D3) 1,000 unit Tablet 1000 UNIT PO (09:53)
[2021-05-15] MEDS: docusate sodium 100 mg Capsule PO (09:53)
[2021-05-15] MEDS: benzonatate 100 mg Capsule PO ×2 (09:53→14:34)
[2021-05-15] MEDS: ascorbic acid 500 mg Tablet PO (09:53)
[2021-05-15] MEDS: zinc gluconate 50 mg Tablet PO (09:53)
[2021-05-15] MEDS: FUROsemide 40 mg Tablet PO (09:53)
[2021-05-15] MEDS: quetiapine 25 mg Tablet PO (10:00)
[2021-05-15] MEDS: metoprolol tartrate 25 mg Tablet PO (10:58)
--- NOTE | 2021-05-15 13:46 | PM.DCS ---
Discharge Providers Date of Admission: 04/29/21 19:27 Date of Discharge: May 15, 2021 Attending Provider at Admission: Kelly Davidson Attending Provider at Discharge: Charlie Mota MD Consults: Show Card Writer: Dr. Koch Diagnoses at Discharge Discharge Diagnosis (1) Acute hypoxemic respiratory failure due to COVID-19: Status: Acute (2) Pneumonia due to COVID-19 virus: Status: Acute (3) Transaminitis: Status: Acute (4) Leg cramps: Status: Acute Reason for Visit Reason for Visit: COVID +; RESP DISTRESS Hospital Course Hospital Course Lakisha Esqueda is a 45 year old female With no significant past medical history who presented to the hospital with respiratory distress. Patient stated symptom had been ongoing for a little less than 1 week. This was associated with fever, chills, cough and overall generalized weakness.Patient is unvaccinated. Upon arrival to emergency room patients initial laboratory workup showed a WBC of 11.7, hemoglobin of 13.5, hematocrit of 40.6 and a platelet count of 377.D-dimer 2.43.Arterial blood gases showed a pH of 7.47, pCO2 38.7 and bicarb of 28.2.Sodium 136, potassium 4.5 chloride 97 bicarb 27.BUN 12 and creatinine 0.7. AST was elevated at 169, ALT of 177, alkaline phosphatase of 102. ProBNP of 190. CRP of 37.4. Procalcitonin 0.11.Chest CTA did not show any visible evidence of pulmonary embolism however was noted have bilateral predominant peripheral patches of ground-glass interstitial lung disease opacification consistent with COVID-19 pneumonia. Also noted to have a potentially 13 mm nodule of the thyroid isthmus. Patient was admitted to hospital for further work up of ARDS from COVID19. She was started on inhalation treatment, dexamethasone and Remdesevir. She also got a dose of Actemra. Her hospital stay was complicated by anxiety for which she needed precedex drip. As patient persistent needed high oxygen supplementation she was transferred to ICU and whitewater rafting guide was consulted. She improved gradually and her oxygen requirements trended down and has been needing 5-6 lt of oxygen for last 2 days. Home oxygen eval was done and she needed 5 lt at rest and 6 lt on exertion and her saturation remained over 90% without any constitutional symptoms. She being discharged in hemodynamically stable condition. Advised to take inhalation treatment with Advair and Spiriva daily. Advised to continue using Eliquis which is a blood thinner for next 2 weeks. Advised to continue working with incentive spirometry and flutter valve while at home. Advised to follow-up with his primary care provider and his networks computer consultant within the next 4 to 7 days. Can take his COVID-19 vaccination in 3 months. Advised to continue following social distancing and isolation protocol for next 10 days. Advised to come back to the ER if fever of more than 101 Fahrenheit, more difficulty breathing than usual or requiring higher oxygen supplementation. Physical Exam Narrative: EXAM NARRATIVE: General-alert awake and oriented on 5L HEENT- grossly unremarkable CVS- normal sinus rhythm Chest-nonlabored respiration Abdomen -nondistended Extremities -no edema Urinary Catheter Management^: Torres: Cath Placed During This Visit: yes, but has since been removed by the nurse Reason for Continuing Indwelling Catheter: Decision to DC Catheter Urinary Catheter Date of Insertion: 05/03/21 Urinary Catheter Time of Insertion: 10:45 Date Urinary Catheter Removed: 05/10/21 Time Urinary Catheter Discontinued: 14:30 Discharge Data Data Completed and Pending: Completed Studies During Hospitalization Category Date Time Status CT angio chest PE protcl [id number] Urge nt Cat Scan 04/29/21 19:13 Completed XR chest 1V yessica ble [id number] Routine Exams 05/01/21 07:00 Completed XR chest 1V yessica ble [id number] Routine Exams 05/05/21 04:00 Completed XR chest 1V yessica ble [id number] Routine Exams 05/14/21 07:00 Completed XR chest 1V yessica ble [id number] Stat Exams 04/29/21 18:10 Completed Pending at discharge Category Date Time Status C Reactive Protei n AM LABS Lab 05/16/21 04:00 Ordered C Reactive Protei n AM LABS Lab 05/17/21 04:00 Ordered C Reactive Protei n AM LABS Lab 05/18/21 04:00 Ordered Complete Blood Co unt w/Auto AM LABS Lab 05/16/21 04:00 Ordered Comprehensive Met abolic Panel AM LA BS Lab 05/16/21 04:00 Ordered Erythrocyte Sedim entation Rate Q48H Lab 05/16/21 04:00 Ordered Erythrocyte Sedim entation Rate Q48H Lab 05/18/21 04:00 Ordered NT Pro B Type Mell riuretic Pept AM L ABS Lab 05/16/21 04:00 Ordered NT Pro B Type Mell riuretic Pept AM L ABS Lab 05/17/21 04:00 Ordered NT Pro B Type Mell riuretic Pept AM L ABS Lab 05/18/21 04:00 Ordered Addt'l Data from Hospital Stay: Laboratory Results WBC 11.5 10^3/uL (4.0 -10.0) H 05/14/21 05:35 RBC 4.88 10^6/uL (4.1 -5.3) 05/14/21 05:35 Hgb 14.2 g/dL (11.5-1 5.3) 05/14/21 05:35 Hct 44.0 % (37.0-47.0 ) 05/14/21 05:35 MCV 90.2 fl (81-99) 05/14/21 05:35 MCH 29.1 pg (28.0-34. 0) 05/14/21 05:35 MCHC 32.3 g/dL (30.0-3 6.0) 05/14/21 05:35 RDW 13.9 % (12.1-15.1 ) 05/14/21 05:35 Plt Count 187 10^3/cmm (130 -400) 05/14/21 05:35 MPV 10.8 fL (7.4-10.4 ) H 05/14/21 05:35 Neut % (Auto) 52.6 % 05/14/21 05:35 Lymph % (Auto) 24.8 % 05/14/21 05:35 Ramsey % (Auto) 11.2 % 05/14/21 05:35 Eos % (Auto) 6.0 % 05/14/21 05:35 Baso % (Auto) 1.3 % 05/14/21 05:35 Neut # (Auto) 6.02 10^3/uL (1.8 -7.7) 05/14/21 05:35 Lymph # (Auto) 2.8 10^3/uL (0.8- 4.8) 05/14/21 05:35 Ramsey # (Auto) 1.3 10^3/uL (0.2- 0.9) H 05/14/21 05:35 Eos # (Auto) 0.7 10^3/uL (0.0- 0.8) 05/14/21 05:35 Baso # (Auto) 0.2 10^3/uL (0.0- 0.1) H 05/14/21 05:35 Nucleated RBC % (a uto) 0 % 05/14/21 05:35 Nucleated RBCs # 0.0 /100WBC 05/14/21 05:35 PT 13.30 SECONDS (12 .1-14.9) 05/03/21 06:27 INR 0.98 (0.8-1.2) 05/03/21 06:27 D-Dimer 2.72 ug/mIFEU (0- 0.59) H 05/08/21 05:42 Specimen Type Arterial 05/07/21 14:04 Sample Site Brachial, left 05/07/21 14:04 ABG pH 7.49 (7.35-7.45) H 05/07/21 14:04 ABG pCO2 33.3 mmHg (35-45) L 05/07/21 14:04 ABG pO2 59.8 mmHg (80.0-1 00.0) L 05/07/21 14:04 ABG HCO3 25.5 mmol/L (22-2 6) 05/07/21 14:04 ABG O2 Saturation 92.5 05/07/21 14:04 ABG Base Excess 2.7 mmol/L (-2.0- 2.0) H 05/07/21 14:04 Akhil Test Pos 05/07/21 14:04 A-a O2 Gradient 42.5 mmHg (5-10) H 05/07/21 14:04 Hematocrit 49.2 % (37-47) H 05/07/21 14:04 Hgb O2 Saturation 91.2 % (95-100) L 05/07/21 14:04 Carboxyhemoglobin 0.9 %THgb (0.4-20 .1) 05/07/21 14:04 Methemoglobin 0.5 % (0.4-1.5) 05/07/21 14:04 Total Hemoglobin 16.1 g/dL (12-16) H 05/07/21 14:04 Sodium 137.0 mmol/L (131 -143) 05/07/21 14:04 Potassium 4.4 mmol/L (3.5-5 .0) 05/07/21 14:04 Glucose 128.0 mg/dL (70-1 15) H 05/07/21 14:04 Ionized Calcium 1.2 mmol/L (1.1-1 .4) 05/07/21 14:04 O2 Delivery Device Hag 05/07/21 14:04 O2 Liters/Min 40.0 % 05/07/21 14:04 FiO2 60.0 % 05/07/21 14:04 Telecommunications Engineer ID Cak 05/07/21 14:04 Sodium 140 mmol/L (136-1 45) 05/14/21 05:35 Potassium 3.8 mmol/L (3.5-5 .1) 05/14/21 05:35 Chloride 99 mmol/L (98-107 ) 05/14/21 05:35 Carbon Dioxide 30 mmol/L (22-29) H 05/14/21 05:35 Anion Gap 14.8 (5-19) 05/14/21 05:35 BUN 21 mg/dL (6-20) H 05/14/21 05:35 Creatinine 0.9 mg/dL (0.5-0. 9) 05/14/21 05:35 GFR Calculation 68.3 mL/min (90-1 30) L 05/14/21 05:35 Glucose 82 mg/dL (65-115) 05/14/21 05:35 Calculated Osmolal ity 292 mOsm/kg (285- 295) 05/14/21 05:35 Lactic Acid 1.9 mmol/L (0.5-2 .2) 04/29/21 18:27 Lactate 2.1 mmol/L (0.5-2 .2) 05/03/21 06:27 Calcium 9.4 mg/dL (8.5-10 .5) 05/14/21 05:35 Phosphorus 3.7 mg/dL (2.5-4. 5) 05/03/21 06:27 Magnesium 2.7 mg/dL (1.7-2. 3) H 05/14/21 05:35 Ferritin 1113 ng/mL (15-15 0) H 05/14/21 05:35 Total Bilirubin 0.7 mg/dL (0.15-1 .2) 05/14/21 05:35 AST 22 U/L (0-32) 05/14/21 05:35 ALT 54 U/L (0-33) H 05/14/21 05:35 Alkaline Phosphata se 57 IU/L (35-105) 05/14/21 05:35 Creatine Kinase 46 U/L (26-192) 05/03/21 06:27 C-Reactive Protein 1.0 mg/L (0.0-4.9 ) 05/08/21 05:42 NT-Pro-B Natriuret Pep 64 pg/mL (0-125) 05/03/21 06:27 Total Protein 6.4 g/dL (6.6-8.7 ) L 05/14/21 05:35 Albumin 3.8 g/dL (3.5-5.2 ) 05/14/21 05:35 Globulin 2.6 g/dL (1.3-4.6 ) 05/14/21 05:35 Procalcitonin 0.07 ng/mL (0-0.5 ) 05/14/21 05:35 Impressions Chest CTA 04/29/21 19:13 IMPRESSION: 1. No visible evidence of pulmonary embolism/pulmonary arterial thrombus. 2. Bilateral, predominantly peripheral, patches of ground-glass interstitial lung disease opacification with patches of crazy paving and early consolidated alveolar airspace disease consistent with active pneumonitis/pneumonia. Overall constellation of findings would be consistent with Covid-19 pneumonitis/pneumonia. 3. Potential 13 mm nodule at the thyroid isthmus. Not well imaged due to quantum mottle artifact. No follow-up is recommended. COMMENTS: Consistent with the [employer]'s Incidental Findings Committee white paper (J Am Rosamaria Radiol 2015): In patients aged 35 years and older with an incidental thyroid nodule equal to or greater than 1.[address], MRI or extrathyroidal US, further evaluation with dedicated thyroid US is recommended for patients with normal life expectancy and without comorbidities. For smaller nodules without suspicious features, no further evaluation or follow up is recommended. Radiation Dose CTDIVOL = (mGy): DLP = 584.78 (mGy-cm) Chest X-Ray 05/14/21 07:00 IMPRESSION: 1. Moderate pulmonary hypoexpansion. 2. Improved bilateral pulmonary infiltrates. Vitals: Last Vital Signs Temp 98.1 F 05/15/21 03:55 Pulse 91 05/15/21 12:00 Resp 20 H 05/15/21 09:10 BP 118/85 05/15/21 12:00 Pulse Ox 90 05/15/21 13:23 Discharge Plan Discharge Patient Disposition: Home Condition: Stable Prescriptions: New Vitamin C 500 mg Tablet 500 mg PO BID 14 Days Qty: 28 RF: 0 quetiapine 25 mg Tablet 25 mg PO BID@0900,2100 30 Days Qty: 60 RF: 0 Advair Diskus 250-50 mcg/dose Blister With Device 1 puff inhalation BID.RESPIRATORY 14 Days Qty: 28 RF: 0 benzonatate 100 mg Capsule 100 mg PO TID PRN (Reason: cough) Qty: 10 RF: 0 pantoprazole 40 mg Tablet,Delayed Release (Dr/Ec) 40 mg PO DAILY@0600 14 Days Qty: 14 RF: 0 metoprolol tartrate 25 mg Tablet 25 mg PO BID@0900,2100 30 Days Qty: 60 RF: 0 Spiriva with HandiHaler 18 mcg Capsule, W/Inhalation Device 18 mcg inhalation DAILY.RESPIRATORY 14 Days Qty: 14 RF: 0 zinc gluconate 50 mg Tablet 50 mg PO DAILY 30 Days Qty: 30 RF: 0 Eliquis 2.5 mg tablet 2.5 mg PO Q12H 15 Days Qty: 30 RF: 0 Discontinued azithromycin 250 mg Tablet 250 mg PO BEDTIME RF: 0 prednisone 20 mg Tablet 40 mg PO DAILY RF: 0 albuterol sulfate 90 mcg/actuation Hfa Aerosol Inhaler 2 puff INHALATION QID PRN (Reason: Shortness Of Breath Or Wheezing) RF: 0 Discharge Orders: Discharge Order (Routine); Ordered 05/15/21 Ordered By: Charlie Mota Referrals: [facility] [Outside] Discharge Diet: Regular Discharge Activity: Resume usual activity Patient Instructions: Viral Pneumonia (DC), Acute Respiratory Distress Syndrome (DC), Opioid Safety Activity Restrictions/Additional Instructions: Advised to take inhalation treatment with Advair and Spiriva daily. Advised to continue using Eliquis which is a blood thinner for next 2 weeks. Advised to continue working with incentive spirometry and flutter valve while at home. Advised to follow-up with his primary care provider and his networks computer consultant within the next 4 to 7 days. Can take his COVID-19 vaccination in 3 months. Advised to continue following social distancing and isolation protocol for next 10 days. Advised to come back to the ER if fever of more than 101 Fahrenheit, more difficulty breathing than usual or requiring higher oxygen supplementation. Discharge Attestations Time Spent in Discharge Care*: greater than 30 min Specific Discharge Activities: educating patient, discussing with assistant case manager/social workers/dc planners, documenting/other paperwork and evaluating patient/reviewing data Status at Discharge: Cognitive status at discharge: cognitively intact, Behavioral status at discharge: cooperative, Functional status at discharge: independent ambulation Overall status at discharge: patient is progressing back to baseline Quality Metrics Clinical Quality Measures During this hospital stay, did patient experience: None Coding Level of Care Code Acute Chg FW DC note Diagnoses Acute hypoxemic respiratory failure due to COVID-19 U07.1; J96.01 Pneumonia due to COVID-19 virus U07.1; J12.82 Transaminitis R74.01 Leg cramps R25.2
--- NOTE | 2021-05-15 15:24 | PC.RESP ---
RT Shift Note Frequent safety and respiratory rounds continue. Orders completed as indicated. Patient monitored pre and post treatments throughout shift. Patient [Did] tolerate treatments appropriately. Condition [.DidNotChange]. Patient and/or sales representative groceries educated on respiratory treatment and medications. Patient and/or sales representative groceries [verbalized understanding]. Will continue to monitor patient progress.
--- NOTE | 2021-05-18 13:48 | PC.SOCIAL ---
discharge follow up call made, patient continues to use home O2 at 5L, sats 92%. Patient had initial interview with Home health. Has follow up appointment saturday with PCP
--- NOTE | 2021-05-18 13:58 | PC.SOCIAL ---
discharge follow up call made. Patient picked up new prescriptions but didn't get a nebulizer machine. Order sent over to HOME for neb machine. Patient is also needing portable O2. i spoke with Reynaldo at home and he delivered portable O2 tanks with a cart. But he will call pt to see if she is wanting a bag.
== END 2021-05-15 17:15 | disposition home or self-care (01) | DRG 177 ==
LOC: ER 19:29 → MS 2A 20:11 → ICU 05-03 20:20 → MS 2A 05-07 19:52
PROVIDERS: Family Medicine; Internal Medicine Pulmonary Disease; Student in an Organized Health Care Education/Training Program; Admitting Provider Hospitalist; Emergency Provider Emergency Medicine; Visit Provider Student in an Organized Health Care Education/Training Program
DX: U07.1 COVID-19 (principal); J12.82 Pneumonia due to coronavirus disease 2019; J15.9 Unspecified bacterial pneumonia; J80 Acute respiratory distress syndrome; Z99.81 Dependence on supplemental oxygen; E04.1 Nontoxic single thyroid nodule; E66.01 Morbid (severe) obesity due to excess calories; Z68.32 Body mass index [BMI] 32.0-32.9, adult; R25.2 Cramp and spasm; F41.9 Anxiety disorder, unspecified
CPT/HCPCS: 36415; 36600; 51702; 71045; 71275; 80051; 80053; 82330; 82550; 82728; 82803; 82805; 83605; 83735; 83880; 84100; 84145; 85025; 85378; 85610; 86140; 87040; 87641; 93005; 94640; 94660; 94664; 96372; 96374; 97110; 97161; 97165; 97530; 97535; 99285; C9113; J0456; J0696; J1100; J1644; J1940; J2060; J3262; J3535; J7050; J7611; J7626; Q9967

== ENCOUNTER 2021-06-01 17:29 | Emergency (ER) | payer BC, SELFPAY ==
[2021-06-01 17:58] VITALS: BP 132/87; PULSE 102; RESP 16; TEMP 36.8; O2SAT 98; BMI 29.9
--- NOTE | 2021-06-01 18:13 | XRR_ITS ---
PROCEDURE INFORMATION: Exam: XR Chest Exam date and time: 06/01/2021 6:13 PM Age: 45 years old Clinical indication: Shortness of breath; Additional info: Cp TECHNIQUE: Imaging protocol: XR of the chest. Views: 1 view. COMPARISON: CR (CHEST, ) 05/14/2021 8:13 AM FINDINGS: Lungs: Patchy ground-glass opacities have improved in both lungs. No focal consolidation. Pleural spaces: Unremarkable. No pleural effusion. No pneumothorax. Heart/Mediastinum: Unremarkable. No cardiomegaly. Bones/joints: Unremarkable. XR/XR chest 1V portable [id number] IMPRESSION: Improved multilobar pneumonia.
--- NOTE | 2021-06-01 18:29 | W.ED.CHESTPA ---
HPI - Chest Pain General: Chief Complaint: Chest Pain Stated Complaint: Pain in Chest when breathing Time Seen by Provider: 06/01/21 18:13 Source: patient Mode of arrival: ambulatory Limitations: no limitations History of Present Illness: HPI narrative: 45-year-old female who is recently getting over Covid. Patient was diagnosed at the end of March and then was admitted to the hospital for 17 days. She has been discharged for little over 2 weeks and is on 4 L of oxygen at home. States that over the last 2 to 3 days she has had increasing physical therapy and having some chest pain with exertion. She states that anytime she coughs or has a deep inspiration she has a sharp pain in her chest as well. States she is concerned about a possible blood clot. She denies any fever. She is not having to increase her oxygen is actually been able to decrease her oxygen from 5 L at discharge down to 4 L. Associated symptoms: Reports dyspnea; Deny abdominal pain, fever(s), nausea or vomiting Review of Systems Const: Denies: fever(s), chills, body aches or change in appetite Eyes: Denies: blurry vision or eye discomfort ENMT: Denies: throat pain or dental pain Card: Reports: chest pain Resp: Reports: dyspnea and non-productive cough GI: Denies: abdominal pain, nausea, vomiting or diarrhea : Denies: dysuria Musc: Denies: neck pain or back pain Skin/Breast: Denies: rash Neuro: Denies: headache(s) Psych: Denies: depression Reilly/Lymph: Denies: easy bruising All/Imm: Denies: urticaria PFSH ED PFSH: Medical History Leg cramps Morbid obesity No pertinent family history Transaminitis Surgical History No pertinent past surgical history Social History Smoking and tobacco status: never smoked Alcohol intake: never Physical Exam Const: COMMON NORMALS: no acute distress, patient oriented x3 and healthy appearing HENMT: COMMON NORMALS: normocephalic and atraumatic HEAD & SCALP: normocephalic and atraumatic Eye: COMMON NORMALS: Equal, round and reactive pupils present and EOMs intact bilaterally PUPIL: Yes Equal, round and reactive pupils present Neck/C-Spine: COMMON NORMALS: full ROM and supple Chest: COMMONS NORMALS: normal inspection of the chest and normal palpation of entire chest wall Resp: COMMON NORMALS: normal respiratory effort, No retractions and No use of accessory muscles AUSCULTATION: rales Cardio: COMMON NORMALS: regular rate, regular rhythm and No murmurs present (Cardio) RATE: regular rate RHYTHM: regular rhythm GI: COMMON NORMALS: Normal to inspection, nondistended, normoactive bowel sounds present, Soft to palpation, non-tender and no masses PALPATION: Yes Soft to palpation Extremity: COMMON NORMALS: normal to inspection and full ROM Neuro: COMMON NORMALS: patient oriented x3, moves all extremities and no focal motor deficits Psych: COMMON NORMALS: mental status grossly normal, Normal thought process present and cooperative THOUGHT PROCESS: Normal thought process present Skin: COMMON NORMALS: no rashes or lesions noted and no wounds GENERAL SKIN EXAM: no rashes or lesions noted Course Vital Signs: Vital signs: Vital Signs Temperature 98.2 F 06/01/21 17:58 Pulse Rate 92 06/01/21 19:06 Respiratory Rate 18 06/01/21 19:06 Blood Pressure 140/90 06/01/21 19:06 Pulse Oximetry 100 06/01/21 19:06 MDM - Chest Pain MDM Narrative: Medical decision making narrative: Patient presents here with chest pain could be from post Covid with her cough. CT did show a very small pulmonary embolism. Patient had been taking Eliquis and has only been off of it 2 days will restart her on the Eliquis. Will prescribe her pain meds for home. She is to follow-up with PCP and return if worsening. Lab Data: Labs: Lab Results 06/01/21 06/01/21 06/01/21 Range/Units 18:25 18:25 18:25 WBC 12.3 H (4.0-10.0) 10^3/ uL RBC 4.42 (4.1-5.3) 10^6/u L Hgb 13.1 (11.5-15.3) g/dL Hct 40.4 (37.0-47.0) % MCV 91.4 (81-99) fl MCH 29.6 (28.0-34.0) pg MCHC 32.4 (30.0-36.0) g/dL RDW 15.0 (12.1-15.1) % Plt Count 447 H (130-400) 10^3/c mm MPV 9.4 (7.4-10.4) fL Neut % (Auto) 69.4 % Lymph % (Auto) 17.6 % [place] % (Auto) 8.2 % Eos % (Auto) 2.7 % Baso % (Auto) 0.6 % Neut # (Auto) 8.53 H (1.8-7.7) 10^3/u L Lymph # (Auto) 2.2 (0.8-4.8) 10^3/u L [place]ima # (Auto) 1.0 H (0.2-0.9) 10^3/u L Eos # (Auto) 0.3 (0.0-0.8) 10^3/u L Baso # (Auto) 0.1 (0.0-0.1) 10^3/u L Nucleated RBC % (a uto) 0 % Nucleated RBCs # 0.0 /100WBC PT (12.1-14.9) SECO NDS INR (0.8-1.2) D-Dimer (0-0.59) ug/mIFE U Sodium 137 (136-145) mmol/L Potassium 4.4 (3.5-5.1) mmol/L Chloride 99 (98-107) mmol/L Carbon Dioxide 25 (22-29) mmol/L Anion Gap 17.4 (5-19) BUN 10 (6-20) mg/dL Creatinine 0.6 (0.5-0.9) mg/dL GFR Calculation 109.1 (90-130) mL/min Glucose 85 (65-115) mg/dL Calculated Osmolal ity 282 L (285-295) mOsm/k g Calcium 9.5 (8.5-10.5) mg/dL Total Bilirubin 0.3 (0.15-1.2) mg/dL AST 14 (0-32) U/L ALT 17 (0-33) U/L Alkaline Phosphata se 72 (35-105) IU/L Troponin T Baselin e 6 (0-10) ng/L Total Protein 6.9 (6.6-8.7) g/dL Albumin 4.1 (3.5-5.2) g/dL Globulin 2.8 (1.3-4.6) g/dL 06/01/21 Range/Units 18:25 WBC (4.0-10.0) 10^3/ uL RBC (4.1-5.3) 10^6/u L Hgb (11.5-15.3) g/dL Hct (37.0-47.0) % MCV (81-99) fl MCH (28.0-34.0) pg MCHC (30.0-36.0) g/dL RDW (12.1-15.1) % Plt Count (130-400) 10^3/c mm MPV (7.4-10.4) fL Neut % (Auto) % Lymph % (Auto) % [place] % (Auto) % Eos % (Auto) % Baso % (Auto) % Neut # (Auto) (1.8-7.7) 10^3/u L Lymph # (Auto) (0.8-4.8) 10^3/u L [place] # (Auto) (0.2-0.9) 10^3/u L Eos # (Auto) (0.0-0.8) 10^3/u L Baso # (Auto) (0.0-0.1) 10^3/u L Nucleated RBC % (a uto) % Nucleated RBCs # /100WBC PT 12.60 (12.1-14.9) SECO NDS INR 0.91 (0.8-1.2) D-Dimer 0.76 H (0-0.59) ug/mIFE U Sodium (136-145) mmol/L Potassium (3.5-5.1) mmol/L Chloride (98-107) mmol/L Carbon Dioxide (22-29) mmol/L Anion Gap (5-19) BUN (6-20) mg/dL Creatinine (0.5-0.9) mg/dL GFR Calculation (90-130) mL/min Glucose (65-115) mg/dL Calculated Osmolal ity (285-295) mOsm/k g Calcium (8.5-10.5) mg/dL Total Bilirubin (0.15-1.2) mg/dL AST (0-32) U/L ALT (0-33) U/L Alkaline Phosphata se (35-105) IU/L Troponin T Baselin e (0-10) ng/L Total Protein (6.6-8.7) g/dL Albumin (3.5-5.2) g/dL Globulin (1.3-4.6) g/dL Imaging Data^: CT Chest: Attestation: I personally reviewed and interpreted this imaging study as follows: Radiologist's impression: [employer] [address] [address] Scan Report Signed with Addenda Patient: Lakisha Esqueda Unit #: [id number] : 1975 Age/Sex: 45 / F ADM Date: 06/01/21 Loc: ER Room/Bed: Attending Dr: Ordering Provider/Ordering MD: Heidi Ortega MD Date of Service: 06/01/21 Procedure(s): CT angio chest PE protcl [id number] Accession Number(s): [id number] Report Number: [id number]/CT angio chest PE protcl [id number] THIS REPORT CONTAINS FINDINGS THAT MAY BE CRITICAL TO PATIENT CARE. The findings were verbally communicated via telephone conference with HEIDI ORTEGA at 7:59 PM CDT on 06/01/2021. The findings were acknowledged and understood. Radiation Dose CTDIVOL = (mGy): DLP = 543.8 (mGy-cm) Addendum Dictated By: Clyde Garcia Addendum Signed By: Clyde Garcia Signed Date/Time: 06/01/21 2 002 Addendum Cosigned By: PROCEDURE INFORMATION: Exam: CTA Chest With Contrast Exam date and time: 06/01/2021 7:25 PM Age: 45 years old Clinical indication: Pain; Shortness of breath; On breathing; Additional info: SOB, pain in chest when taking a breath in. PT dx with covid 1 month ago TECHNIQUE: Imaging protocol: Computed tomographic angiography of the chest with contrast. 3D rendering (Not supervised by radiologist): MIP and/or 3D reconstructed images were created by the technologist. Radiation optimization: All CT scans at this facility use at least one of these dose optimization techniques: automated exposure control; mA and/or kV adjustment per patient size (includes targeted exams where dose is matched to clinical indication); or iterative reconstruction. Contrast material: OMNI 350; Contrast volume: 73 ml; Contrast route: INTRAVENOUS (IV); COMPARISON: CT angio chest PE protcl [id number] 04/29/2021 9:11 PM RADIATION DOSE METRICS: Total DLP (mGy-cm): 543.8 FINDINGS: Pulmonary arteries: Small filling defect within a single pulmonary artery branch in the posteromedial right lower lobe. The other pulmonary artery branches appear normal. Aorta: Unremarkable. No aortic aneurysm. No aortic dissection. Lungs: Patchy ground-glass and linear opacities throughout both lungs have improved slightly. Pleural spaces: Small right and trace left pleural effusions. Heart: Unremarkable. No cardiomegaly. No pericardial effusion. Lymph nodes: Prominent mediastinal and hilar lymph nodes are most likely reactive. Bones/joints: Unremarkable. No acute fracture. Soft tissues: Unremarkable. CT/CT angio chest PE protcl [id number] IMPRESSION: 1. Small pulmonary embolus in the right lower lobe. 2. Slightly improved multilobar pneumonia. Radiation Dose CTDIVOL = (mGy): DLP = 543.8 (mGy-cm) Dictated By: Clyde Garcia Signed By: Clyde Garcia Signed Date/Time: 06/01/211957 DD/ 55 EKG Data^: EKG 1: Attestation: I personally reviewed and interpreted this EKG as follows: EKG interpretation date: 06/01/21 EKG interpretation time: 18:07 Interpretation: sinus tach hr [address] or t wave abnormalities qrs 77 qtc 398 Discharge Plan Discharge Patient Disposition: Home Clinical Impression: Pulmonary embolism Chest pain Qualifiers: Chest pain type: unspecified Qualified Code(s): R07.9 - Chest pain, unspecified Condition: Stable Prescriptions: New hydrocodone-acetaminophen 5-325 mg tablet 1 tab PO Q6H PRN (Reason: pain) Qty: 14 RF: 0 Naprosyn 500 mg tablet 500 mg PO BID PRN (Reason: pain) Qty: 20 RF: 0 Eliquis 5 mg tablet 5 mg PO BID Qty: 60 RF: 0 No Action quetiapine 25 mg Tablet 25 mg PO BID@0900,2100 30 Days Qty: 60 RF: 0 benzonatate 100 mg Capsule 100 mg PO TID PRN (Reason: cough) Qty: 10 RF: 0 metoprolol tartrate 25 mg Tablet 25 mg PO BID@0900,2100 30 Days Qty: 60 RF: 0 zinc gluconate 50 mg Tablet 50 mg PO DAILY 30 Days Qty: 30 RF: 0 Discharge Orders: Discharge ED (Routine); Ordered 06/01/21 Ordered By: Heidi Ortega Referrals: Joaquin Valera, [Primary Care Provider] - 1-3 days Discharge Diet: Advance as tolerated Discharge Activity: Resume usual activity Patient Instructions: Opioid Safety Coding Level of Care Code 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
[2021-06-01 18:33] LABS: Basophils # 0.1 10^3/uL (0.0-0.1); Basophils % 0.6 %; Eosinophils # 0.3 10^3/uL (0.0-0.8); Eosinophils % 2.7 %; Hematocrit 40.4 % (37.0-47.0); Hemoglobin 13.1 g/dL (11.5-15.3); Lymphocytes # 2.2 10^3/uL (0.8-4.8); Lymphocytes % 17.6 %; Mean Corpuscular HGB Conc 32.4 g/dL (30.0-36.0); Mean Corpuscular Hemoglobin 29.6 pg (28.0-34.0); Mean Corpuscular Volume 91.4 fl (81-99); Mean Platelet Volume 9.4 fL (7.4-10.4); Monocytes % 8.2 %; Neutrophils # 8.53 10^3/uL (1.8-7.7); Neutrophils % 69.4 %; Nucleated Red Blood Cells % 0 %; Platelet Count 447 10^3/cmm (130-400); Red Blood Count 4.42 10^6/uL (4.1-5.3); White Blood Count 12.3 10^3/uL (4.0-10.0)
[2021-06-01 18:40] VITALS: BP 133/92; PULSE 95; RESP 35; O2SAT 100
[2021-06-01 18:53] LABS: Troponin(5th) Baseline 6 ng/L (0-10)
[2021-06-01 18:54] LABS: Alanine Aminotransferase 17 U/L (0-33); Albumin Level 4.1 g/dL (3.5-5.2); Alkaline Phosphatase 72 IU/L (35-105); Anion Gap 17.4 (5-19); Aspartate Amino Transferase 14 U/L (0-32); Blood Urea Nitrogen 10 mg/dL (6-20); Calcium 9.5 mg/dL (8.5-10.5); Carbon Dioxide 25 mmol/L (22-29); Chloride 99 mmol/L (98-107); Creatinine Clr Calc Pharmacy 127.6044; Globulin 2.8 g/dL (1.3-4.6); Glomerular Filtration Rate 109.1 mL/min (90-130); Glucose 85 mg/dL (65-115); Osmolality Calculated 282 mOsm/kg (285-295); Potassium 4.4 mmol/L (3.5-5.1); Sodium 137 mmol/L (136-145); Total Bilirubin 0.3 mg/dL (0.15-1.2); Total Protein 6.9 g/dL (6.6-8.7)
[2021-06-01 19:06] VITALS: BP 140/90; PULSE 92; RESP 18; O2SAT 100
--- NOTE | 2021-06-01 19:25 | CTR_ITS ---
PROCEDURE INFORMATION: Exam: CTA Chest With Contrast Exam date and time: 06/01/2021 7:25 PM Age: 45 years old Clinical indication: Pain; Shortness of breath; On breathing; Additional info: SOB, pain in chest when taking a breath in. PT dx with covid 1 month ago TECHNIQUE: Imaging protocol: Computed tomographic angiography of the chest with contrast. 3D rendering (Not supervised by radiologist): MIP and/or 3D reconstructed images were created by the technologist. Radiation optimization: All CT scans at this facility use at least one of these dose optimization techniques: automated exposure control; mA and/or kV adjustment per patient size (includes targeted exams where dose is matched to clinical indication); or iterative reconstruction. Contrast material: OMNI 350; Contrast volume: 73 ml; Contrast route: INTRAVENOUS (IV); COMPARISON: CT angio chest PE protcl [id number] 04/29/2021 9:11 PM RADIATION DOSE METRICS: Total DLP (mGy-cm): 543.8 FINDINGS: Pulmonary arteries: Small filling defect within a single pulmonary artery branch in the posteromedial right lower lobe. The other pulmonary artery branches appear normal. Aorta: Unremarkable. No aortic aneurysm. No aortic dissection. Lungs: Patchy ground-glass and linear opacities throughout both lungs have improved slightly. Pleural spaces: Small right and trace left pleural effusions. Heart: Unremarkable. No cardiomegaly. No pericardial effusion. Lymph nodes: Prominent mediastinal and hilar lymph nodes are most likely reactive. Bones/joints: Unremarkable. No acute fracture. Soft tissues: Unremarkable. CT/CT angio chest PE protcl [id number] IMPRESSION: 1. Small pulmonary embolus in the right lower lobe. 2. Slightly improved multilobar pneumonia. Radiation Dose CTDIVOL = (mGy): DLP = 543.8 (mGy-cm)
[2021-06-01 19:34] LABS: D Dimer 0.76 ug/mIFEU (0-0.59); INR 0.91 (0.8-1.2)
[2021-06-01] MEDS: iohexol 350 mg/mL 100 mL Btl IV (19:40)
[2021-06-01] MEDS: apixaban 5 mg Tablet PO (20:08)
[2021-06-01 20:17] VITALS: BP 127/80; PULSE 95; RESP 18; O2SAT 98
== END 2021-06-01 20:20 | disposition home or self-care (01) ==
PROVIDERS: Emergency Provider Emergency Medicine; PCP Electrodiagnostic Medicine
DX: R07.9 Chest pain, unspecified (principal); Z86.711 Personal history of pulmonary embolism
CPT/HCPCS: 71045; 71275; 80053; 84484; 85025; 85378; 85610; 99283; Q9967

== ENCOUNTER 2023-04-04 08:45 | Outpatient (CLI) | payer BC, SELFPAY ==
[2023-04-04 09:02] VITALS: PULSE 62; RESP 18; O2SAT 98
[2023-04-04] MEDS: albuterol 2.5 mg/3 mL Neb INHALATION (09:02)
== END 2023-04-04 08:46 | disposition home or self-care (01) ==
PROVIDERS: PCP Electrodiagnostic Medicine; Visit Provider Electrodiagnostic Medicine
DX: J84.10 Pulmonary fibrosis, unspecified (principal)
CPT/HCPCS: 94060; 94726; 94729; J7613